=== PATIENT | female | born 1955 | race Caucasian/White ===

== ENCOUNTER 2016-09-18 07:05 | Outpatient (CLI) ==
[2016-07-27 07:44] VITALS: BMI 25.7
[2016-09-18 07:54] LABS: BASOPHILS # (AUTO) 0.1 K/uL (0-0.2); BASOPHILS % (AUTO) 0.7 % (0.0-3.0); EOSINOPHILS # (AUTO) 0.2 K/ul (0.0-0.7); HEMATOCRIT 44.9 % (37.0-47.0); HEMOGLOBIN 14.8 g/dl (12.0-16.0); IMMATURE GRANULOCYTE % (AUTO) 0.7 % (0.0-5.0); LYMPHOCYTES # (AUTO) 1.8 K/uL (0.60-3.4); MEAN CORPUSCULAR HEMOGLOBIN 30.8 pg (27.0-31.0); MEAN CORPUSCULAR VOLUME 93.3 fl (81.0-99.0); MONOCYTES # (AUTO) 0.6 K/uL (0.4-2.0); MONOCYTES % (AUTO) 8.6 (0-10); NEUTROPHILS # (AUTO) 4.6 K/ul (2.0-6.9); PLATELET COUNT 387 10^3/uL (140-440); RED BLOOD COUNT 4.81 10^6/ul (4.20-5.40); WHITE BLOOD COUNT 7.32 K/ul (4.6-10.2)
[2016-09-18 08:25] LABS: ALBUMIN 3.3 g/dL (3.4-5.0); ALBUMIN/GLOBULIN RATIO 1.06; ANION GAP 12.1; BILIRUBIN,DIRECT 0.2 mg/dL (0.00-0.30); BILIRUBIN,TOTAL 0.51 mg/dL (0.00-1.20); BUN/CREATININE RATIO 15.95; CALCIUM 8.9 mg/dL (8.2-10.2); CHOL/HDL RATIO 4.6 (4.5-5.5); CREATININE 0.94 mg/dL (0.60-1.30); POTASSIUM 4.1 mmol/L (3.5-5.10); TOTAL PROTEIN 6.4 g/dL (5.8-8.1)
== END 2016-09-18 07:06 | disposition home or self-care (01) ==
LOC: LAB 07:05
PROVIDERS: ATTEND Family Medicine
DX: C45.7 Mesothelioma of other sites (principal); J44.9 Chronic obstructive pulmonary disease, unspecified; Z00.00 Encounter for general adult medical examination without abnormal findings
CPT/HCPCS: 36415; 80053; 80061; 82248; 82306; 83036; 84436; 84443; 85025

== ENCOUNTER 2016-12-29 07:00 | Outpatient (CLI) ==
[2016-07-27 07:44] VITALS: BMI 25.7
[2016-12-29 07:25] LABS: CREATININE 1.05 mg/dL (0.60-1.30)
--- NOTE | 2016-12-29 08:58 | CT ---
EXAM: CT chest with contrast HISTORY: Right-sided chest pain COMPARISON: CT chest 07/27/2016 and multiple priors dating back to 09/06/2013 TECHNIQUE: Serial axial images of the chest were obtained after 100 ml of Omnipaque IV contrast was administered. These were obtained from the lung apices to the upper abdomen. FINDINGS: The thyroid is normal. Visualized vessels are unremarkable. There is no dissection, ane urysm or stenosis. The heart is normal in size without pericardial effusion. There are nonpatholog ically enlarged mediastinal, hilar or axillary lymph nodes. There is no pneumothorax or pleural effusion. There is scattered moderate emphysematous disease. T here is persistent linear fibrotic changes and postsurgical change in the superior segment of the ri ght lower lobe. There is mild lingular atelectasis. No acute consolidation, nodule or mass. The a irways are patent. The soft tissues in the upper abdomen demonstrate prior cholecystectomy. The osseous structures de monstrate degenerative disease of the spine. IMPRESSION: 1. No acute cardiopulmonary process. 2. Stable postsurgical changes in the right lung with mild linear fibrosis. 3. Prior cholecystectomy and mild scattered degenerative disease.
== END 2016-12-29 07:01 | disposition home or self-care (01) ==
LOC: RAD 07:00
PROVIDERS: ATTEND Family Medicine
DX: R07.9 Chest pain, unspecified (principal); C45.9 Mesothelioma, unspecified
CPT/HCPCS: 36415; 82565

== ENCOUNTER 2017-06-04 07:07 | Outpatient (CLI) ==
[2016-07-27 07:44] VITALS: BMI 25.7
[2017-06-04 08:59] LABS: BILIRUBIN,URINE Negative (NEGATIVE); KETONES,URINE Negative (NEGATIVE); LEUKOCYTE ESTERASE ,URINE Negative (NEGATIVE); NITRITE,URINE Negative (NEGATIVE); PH,URINE 6.5 (5-9); PROTEIN,URINE Negative (NEGATIVE); URINE, BLOOD Trace-intact (NEGATIVE)
[2017-06-04 09:08] LABS: ADD URINE MICROSCOPIC YES
== END 2017-06-04 07:08 | disposition home or self-care (01) ==
LOC: LAB 07:07
PROVIDERS: ATTEND Family Medicine
DX: R30.0 Dysuria (principal); M54.5 Low back pain
CPT/HCPCS: 81001

== ENCOUNTER 2017-06-08 12:47 | Inpatient (IN) ==
[2017-06-08] MEDS ORDERED: MORPHINE 2 MG/ML SYRINGE IVP STA (13:15)
[2017-06-08] MEDS ORDERED: ZOFRAN 4 MG/2 ML IVP STA (13:16)
[2017-06-08 13:26] LABS: BASOPHILS # (AUTO) 0.1 K/uL (0-0.2); BASOPHILS % (AUTO) 0.9 % (0.0-3.0); EOSINOPHILS # (AUTO) 0.2 K/ul (0.0-0.7); EOSINOPHILS % (AUTO) 2.2 % (0.0-7.0); HEMATOCRIT 42.3 % (37.0-47.0); HEMOGLOBIN 14.2 g/dl (12.0-16.0); IMMATURE GRANULOCYTE % (AUTO) 0.5 % (0.0-5.0); LYMPHOCYTES # (AUTO) 2.3 K/uL (0.60-3.4); LYMPHOCYTES % (AUTO) 27.9 (10.0-50.0); MEAN CORPUSCULAR HEMOGLOBIN 31.2 pg (27.0-31.0); MEAN CORPUSCULAR HGB CONC 33.6 (31.8-35.4); MONOCYTES # (AUTO) 0.8 K/uL (0.4-2.0); MONOCYTES % (AUTO) 9.6 (0-10); NEUTROPHILS # (AUTO) 4.8 K/ul (2.0-6.9); NEUTROPHILS % (AUTO) 58.9; PLATELET COUNT 377 10^3/uL (140-440); RED BLOOD COUNT 4.55 10^6/ul (4.20-5.40); WHITE BLOOD COUNT 8.15 K/ul (4.6-10.2)
[2017-06-08 14:01] LABS: ALBUMIN 3.3 g/dL (3.4-5.0); ALBUMIN/GLOBULIN RATIO 0.92; ANION GAP 12.9; BILIRUBIN,TOTAL 0.22 mg/dL (0.00-1.20); BUN/CREATININE RATIO 13.04; CALCIUM 9.4 mg/dL (8.2-10.2); CREATININE 0.92 mg/dL (0.60-1.30); POTASSIUM 3.9 mmol/L (3.5-5.10); TOTAL PROTEIN 6.9 g/dL (5.8-8.1); TROPONIN I 0.01 ng/ml (0.0000-0.4000)
[2017-06-08 14:04] LABS: CREATINE KINASE MB 3.1 ng/ml (0.0-3.6)
[2017-06-08] MEDS ORDERED: DEMEROL 100 MG/ML SYRINGE IVP STA (14:20)
--- NOTE | 2017-06-08 14:55 | CT ---
EXAM: CT of the chest with contrast History: Bilateral shoulder pain, history of mesothelioma. Comparison: Chest CT 12/29/2016 Technique: Multiplanar CT images through the thorax were obtained following administration of IV con trast Findings: Heart size is normal. No pericardial effusion. Great vessels are unremarkable. No pathol ogically enlarged thoracic lymph nodes. Left lower lobe ground-glass infiltrate. No pleural fluid and no pneumothorax. Emphysema again noted. Postsurgical changes and scarring again seen within the ri ght upper lung. No suspicious lung masses or lung nodules. Within the visualized upper abdomen, status post cholecystectomy. The liver is probably fatty. No a cute osseous abnormalities. Impression: 1. Left lower lobe subsegmental atelectasis versus a mild pneumonia. 2. Emphysema again noted. 3. Postsurgical changes with scarring again seen within the right upper lung. 4. Probable fatty liver.
--- NOTE | 2017-06-08 15:01 | ED.PDOC ---
General ED Provider: Dr. JENNY LEWIS Chief Complaint: Hypertension Stated Complaint: chest pain Time Seen by Physician: 13:00 (pain between shoulder blades ) Mode of Arrival: Walk-In Information Source: Patient Exam Limitations: No limitations Primary Care Provider: MADELINE GONZALES Nursing and Triage Documentation Reviewed and Agree: Yes Cardiovascular Complaint Exam - Chest Pain Complaint/Exam Onset: Gradual Duration: today Symptoms Are: Still present Timing: Intermittent Initial Severity: Moderate Current Severity: Moderate Pain Radiates: Reports: Back Character: Reports: Aching Aggravating: Reports: None, Movement Associated Signs and Symptoms: Reports: Cough. Denies: Diaphoresis, Nausea, Vomiting, Fever, Palpitations, Hemoptysis, Back pain, Abdominal pain, Dizziness , Short of air, Calf pain, Calf swelling Related History: Reports: Similar episode Related Surgical History: Reports: None History of Healthcare-Acquired Pneumonia: Reports: No AMI/ACS Risk Factors: Reports: None TAD Risk Factors: Reports: None Pulmonary Embolism Risk Factors: Reports: None, Malignancy Prior Care for this Complaint: No Recent Stress Test: No Recent Echo/LV Function: No JVD Present: No Subcutaneous Emphysema Present: No Diminshed Breath Sounds: No Reproducible Chest Wall Pain: No Bilateral Pulses Present: No If Risk Factors for AMI/ACS Consider: EKG, Cardiac Enzymes If Risk Factors for PE Consider: Chest CT with contrast Review of Systems - Review Of Systems Constitutional: Reports: No symptoms Eyes: Reports: No symptoms Ears, Nose, Mouth, Throat: Reports: No symptoms Respiratory: Reports: Cough Cardiac: Reports: Chest pain GI: Reports: No symptoms : Reports: No symptoms Musculoskeletal: Reports: No symptoms Skin: Reports: No symptoms Neurological: Reports: No symptoms Endocrine: Reports: No symptoms Hematologic/Lymphatic: Reports: No symptoms All Other Systems: Reviewed and Negative Past Medical History - Past Medical History Previously Healthy: No Endocrine: Reports: Dyslipidemia Cardiovascular: Reports: Hypertension Respiratory: Reports: None Hematological: Reports: None Gastrointestinal: Reports: None Genitourinary: Reports: None Neuro/Psych: Reports: None Musculoskeletal: Reports: None Cancer: Reports: Lung Last Menstrual Period: NA - Surgical History General Surgical History: Reports: Other (lung resection) - Family History Family History: Reports: Unknown - Social History Smoking Status: Current every day smoker, Light tobacco smoker Hx Substance Use: No Alcohol Screening: None Physical Exam - Physical Exam Appearance: Ill-appearing Ill-appearing: Mild Pain Distress: Mild Eyes: GIOVANNY, EOMI, Conjunctiva clear ENT: Ears normal, Nose normal, Oropharynx normal Respiratory: Airway patent, Breath sounds clear, Breath sounds equal, Respirations nonlabored Cardiovascular: RRR, Pulses normal, No rub, No murmur GI/: Soft, Nontender, No masses, Bowel sounds normal, No Organomegaly Musculoskeletal: Normal strength, ROM intact, No edema, No calf tenderness Skin: Warm, Dry, Normal color Neurological: Sensation intact, Motor intact, Reflexes intact, Cranial nerves intact, Alert, Oriented Psychiatric: Affect appropriate, Mood appropriate Interpretation - Radiology Interpretation Radiology Interpretation By: Radiologist Radiology Results: No acute changes Physician Notification - Case Discussed Physician Notified: unruly Time of Notification: 16:03 (admitt) Admit To: Inpatient Critical Care Note - Critical Care Note Total Time (mins): 0 Course - Course Hematology/Chemistry: 06/08/17 13:20 06/08/17 13:20 Orders, Labs, Meds: Lab Review 06/08/17 06/08/17 13:20 13:20 WBC 8.15 RBC 4.55 Hgb 14.2 Hct 42.3 MCV 93.0 MCH 31.2 H MCHC 33.6 RDW Coeff of Aranza 13.1 Plt Count 377 Immature Gran % (Auto) 0.5 Neut % (Auto) 58.9 Lymph % (Auto) 27.9 Mclean % (Auto) 9.6 Eos % (Auto) 2.2 Baso % (Auto) 0.9 Immature Gran # (Auto) 0.0 Neut # 4.8 Lymph # 2.3 Mclean # 0.8 Eos # 0.2 Baso # 0.1 Sodium 141 Potassium 3.9 Chloride 107 Carbon Dioxide 25 Anion Gap 12.9 BUN 12 Creatinine 0.92 Estimated GFR (MDRD) 62.00 BUN/Creatinine Ratio 13.04 Glucose 115 Calcium 9.4 Total Bilirubin 0.22 AST 12 L ALT 11 L Alkaline Phosphatase 129 Total Creatine Kinase 195 CK-MB (CK-2) 3.1 CK-MB (CK-2) % 1.35002 Troponin I 0.0100 Total Protein 6.9 Albumin 3.3 L Globulin 3.6 Albumin/Globulin Ratio 0.92 Orders Category Date Time Status EKG-(ED ONLY) Stat CARDIO 06/08/17 13:09 Completed NPO REMINDER: IMAGING ONCE CARE 06/08/17 13:15 Completed ED IV/MEDIPORT/POWERPORT .ONCE EMERGENCY 06/08/17 13:16 Active CBC W/ AUTO DIFF Stat LAB 06/08/17 13:20 Completed COMPREHENSIVE METABOLIC PANEL Stat LAB 06/08/17 13:20 Completed CREATINE KINASE Stat LAB 06/08/17 13:20 Completed TROPONIN I Stat LAB 06/08/17 13:20 Completed 0.9 % Sodium Chloride [Saline Flush] MEDS 06/08/17 13:16 Active 1 syr IVF PRN PRN Meperidine HCl/Pf [Demerol 100 mg/ml Syringe] MEDS 06/08/17 14:20 Discontinued 25 mg IVP ONCE STA Morphine Sulfate [Morphine 2 mg/ml Syringe] MEDS 06/08/17 13:15 Discontinued 2 mg IVP ONCE STA Ondansetron HCl/Pf [Zofran 4 mg/2 ml] MEDS 06/08/17 13:16 Discontinued 4 mg IVP ONCE STA CT CHEST W/CONTRAST Stat RADS 06/08/17 13:14 Completed Medications Generic Name Dose Route Start Last Admin Trade Name Freq PRN Reason Stop Dose Admin Sodium Chloride 1 syr 06/08/17 13:16 Saline Flush IVF PRN PRN To flush IV Discontinued Medications Generic Name Dose Route Start Last Admin Trade Name Freq PRN Reason Stop Dose Admin Meperidine HCl 25 mg 06/08/17 14:20 Demerol 100 Mg/Ml Syringe IVP 06/08/17 14:21 ONCE STA Morphine Sulfate 2 mg 06/08/17 13:15 06/08/17 13:32 Morphine 2 Mg/Ml Syringe IVP 06/08/17 13:16 Not Given ONCE STA Ondansetron HCl 4 mg 06/08/17 13:16 Zofran 4 Mg/2 Ml IVP 06/08/17 13:17 ONCE STA Vital Signs: Temp Pulse Resp BP Pulse Ox 06/08/17 12:52 98.9 F 92 H 18 167/94 H 97 OBEY Risk Score OBEY Risk Score: Risk Score Odds of by 30D 0 0.1 (0.1-0.2) 1 0.3 (0.2-0.3) 2 0.4 (0.3-0.5) 3 0.7 (0.6-0.9) 4 1.2 (1.0-1.5) 5 2.2 (1.9-2.6) 6 3.0 (2.5-3.6) 7 4.8 (3.8-6.1) Departure - Departure Time of Disposition: 15:02 Disposition: ADMITTED INPATIENT Discharge Problem: Chest pain Qualifiers: Chest pain type: unspecified Qualified Code(s): R07.9 - Chest pain, unspecified Instructions: Angina (ED), Chest Pain (ED) Condition: Good Pt referred to PMD for follow-up: Yes Additional Instructions: Please call your Family Physician as soon as possible to schedule a follow-up appointment. Allergies/Adverse Reactions: Allergies amoxicillin [From Augmentin] Adverse Reaction (Verified 06/08/17 12:50) clavulanic acid [From Augmentin] Adverse Reaction (Verified 06/08/17 12:50) morphine Adverse Reaction (Verified 06/08/17 12:50) pravastatin [From Pravachol] Adverse Reaction (Verified 06/08/17 12:50) risedronate sodium [From Actonel] Adverse Reaction (Verified 06/08/17 12:50) Home Medications: Ambulatory Orders Cholecalciferol (Vitamin D3) [Vitamin D] 5,000 mg PO DAILY 04/18/13 Cyanocobalamin (Vitamin B-12) [Vitamin B-12] 2,500 mg PO DAILY 04/18/13 Tiotropium [place] [Spiriva] 1 spray INH DAILY 04/18/13 Fexofenadine HCl [Tammi Allergy] 180 mg PO DAILY 07/23/14 Metoprolol Succinate [Toprol Xl] 20 mg PO DAILY 07/23/14 Estradiol [Estrace] 0.5 mg PO DAILY 05/25/16 Simvastatin [Zocor] 20 mg PO DAILY 05/25/16 Disposition Discussed With: Patient
[2017-06-08] MEDS ORDERED: SODIUM CHLORIDE 1,000 ML IV SCH (16:30)
[2017-06-08 16:50] LABS: CREATINE KINASE 175 U/L
[2017-06-08 16:51] LABS: CREATINE KINASE MB 2.9 ng/ml (0.0-3.6)
[2017-06-08 18:36] VITALS: BMI 28.7
[2017-06-08] MEDS ORDERED: NON-FORMULARY MEDICATION (Escitalopram Oxalate [Lexapro] 5 MG) PO SCH (21:00)
[2017-06-08] MEDS ORDERED: LEXAPRO ONE (21:32)
[2017-06-09 06:30] LABS: BASOPHILS # (AUTO) 0.1 K/uL (0-0.2); BASOPHILS % (AUTO) 0.9 % (0.0-3.0); EOSINOPHILS # (AUTO) 0.2 K/ul (0.0-0.7); HEMOGLOBIN 13.7 g/dl (12.0-16.0); IMMATURE GRANULOCYTE % (AUTO) 0.7 % (0.0-5.0); LYMPHOCYTES # (AUTO) 1.9 K/uL (0.60-3.4); LYMPHOCYTES % (AUTO) 25.3 (10.0-50.0); MEAN CORPUSCULAR HEMOGLOBIN 31.4 pg (27.0-31.0); MEAN CORPUSCULAR HGB CONC 33.4 (31.8-35.4); MEAN CORPUSCULAR VOLUME 93.8 fl (81.0-99.0); MONOCYTES # (AUTO) 0.7 K/uL (0.4-2.0); MONOCYTES % (AUTO) 9.5 (0-10); NEUTROPHILS # (AUTO) 4.6 K/ul (2.0-6.9); NEUTROPHILS % (AUTO) 60.6; PLATELET COUNT 343 10^3/uL (140-440); RED BLOOD COUNT 4.37 10^6/ul (4.20-5.40); WHITE BLOOD COUNT 7.55 K/ul (4.6-10.2)
[2017-06-09 07:07] LABS: ALANINE AMINOTRANSFERASE 10 U/L (12-78); ALBUMIN 2.9 g/dL (3.4-5.0); ALKALINE PHOSPHATASE 108 U/L (53-141); ANION GAP 10.1; ASPARTATE AMINO TRANSFERASE 10 U/L (15-37); BILIRUBIN,TOTAL 0.41 mg/dL (0.00-1.20); BLOOD UREA NITROGEN 10 mg/dL (7-18); BUN/CREATININE RATIO 10.86; CALCIUM 8.7 mg/dL (8.2-10.2); CARBON DIOXIDE 26 mmol/L (23-31); CHLORIDE 109 mmol/L (98-107); CREATINE KINASE 122 U/L; CREATININE 0.92 mg/dL (0.60-1.30); GLUCOSE 104 mg/dL (82-115); POTASSIUM 4.1 mmol/L (3.5-5.10); SODIUM 141 mmol/L (136-145); TOTAL PROTEIN 5.8 g/dL (5.8-8.1)
[2017-06-09 07:08] LABS: CREATINE KINASE MB 2.2 ng/ml (0.0-3.6)
--- NOTE | 2017-06-09 07:16 | HP ---
DATE OF SERVICE: 06/08/17 SOURCE: The source of this information is prior knowledge of the patient, review of her office records, her current chart as well as discussion with she and ; all considered reliable. PATIENT PROFILE: Jennifer is a 61-year-old female resident of the [facility] area; she was cooperative. CHIEF COMPLAINT: "I was having back and chest pain." BRIEF HISTORY OF PRESENT ILLNESS: She has had some chest discomfort over time on and off. There has never been a significant cardiovascular finding. She does have mesothelioma and is being treated through [facility] with chemotherapy. She is a smoker. 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 she started having pain in her mid back. It radiated through to her chest and reached intensity and she couldn't hardly tolerate it. About 2 in the afternoon, she went to the ER and cardiac enzymes were negative. EKG was likewise normal. I was notified of her stable condition, improved with IV Dilaudid. Request was made to admit and consider this as possible ischemic cardiovascular disease that needs further evaluation. She denies indigestion, heartburn, hemoptysis, cough, fever , chest trauma or excessive use of upper muscular system. PAST HISTORY: CHILDHOOD: Unremarkable. ALLERGIES/INTOLERANCE: ACTONEL (CHEST DISCOMFORT), AMOXICILLIN (YEAST INFECTION) , AUGMENTIN (DIARRHEA, NAUSEA AND VOMITING), IVP DYE (SHORTNESS OF BREATH), PRAVACHOL (ELEVATED CPK). CURRENT MEDICATIONS: Spiriva 18 mcg inhaled each day Vitamin B12 1000 mcg 2500 mg a day Vitamin D 5000 internation units a day Toprol 25 XL once a day Tammi 180 mg a day Estrace 0.5 mg a day Zocor 20 mg once a day Protonix 40 mg once a day Lexapro 5 mg at bedtime HOSPITALIZATIONS/SURGERIES/PROCEDURES: She is 2, Para 2, AB 0 with several EGDs; a gambit of findings with hiatal hernia, gastritis and several colonoscopies with the last one showing diverticular disease on 10/15/08 showing diverticular disease, repeat in 5 years. She had a heart cath negative, Dr. Reva Hopkins, 06/24/06. Attempts at a right lung CT biopsy, [facility], 02/20/16 and subsequent testing and surgical biopsy by Dr. Richy Sutton at [facility]. Lap/gallbladder, Dr. Castillo 28/02 at [facility]; Cysto with dilatation, pelvic floor relaxation, bladder loss compliance, chronic cystitis and dilatation performed by Dr. Unger, [facility], 21/07. She had JB and BSO for benign reasons; Dr. Martell, hysterectomy, 1981. Lap/gallbladder, Dr. Castillo, [facility], 2006. Right breast biopsy, Dr. Johansen on 04/08. Bladder sling, Dr. Un[facility], 09/11/13 and right upper lobe removal, Richy Sutton at [facility] on 03/27/16. HABITS: Smoker, age 18, one pack per day with secondhand smoke all other childhood and adult life. No alcohol or drugs. 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 She was in 1973 to her current and has two children. FAMILY HISTORY: Heart disease in mother and diabetes in mother; lymphoma in brother; breast cancer in sister and is there no other cancer, familial trends in the family. REVIEW OF SYSTEMS: GENERAL: She denies fever. INTEGUMENT: Denies rash. HEENT: Denies nasal congestion, sore throat. NECK: Denies pain or mass. RESPIRATORY: Denies cough or hemoptysis. CARDIOVASCULAR: Denies palpitations, exertional chest pain, ankle edema. GI: Denies nausea, vomiting, diarrhea or rectal bleeding. : Denies dysuria. MUSCULOSKELETAL: Usual on and off sore joints. No swollen or red joints. NEUROLOGIC: Denies weakness of extremities or slurred speech. PHYSICAL EXAMINATION: VITALS: Temperature 97.8, pulse 69, respirations 12. Height 5'3, weight 162 lbs. BP 118/70. GENERAL: Appropriate for age, well-kept white female in no obvious distress. INTEGUMENT: Eyegrounds are pink, nonicteric sclerae. Mucous membranes moist, no ankle edema. HEENT: Facial symmetry. Pupils equal, round, extraocular movements intact. NECK: No mass or thyroid appreciated to visualization or palpation Supple. CHEST: Diminished but clear. CARDIOVASCULAR: S1, S2 without murmur or rubs. No carotid bruits. Distal pulse is in tact. GI: Soft. No rebound, guarding, mass or tenderness. RECTAL/: Deferred. MUSCULOSKELETAL: No red or swollen joints . Full quadrant movements are noticed and equal. PSYCHIATRIC: Alert, oriented times three. Purposeful, pleasant conversation. ASSESSMENT/PROBLEM LIST: 61-year-old white female - advanced age Allergies/intolerances - see above Procedural history - see above. Family history - see above Surgical menopause 2, Para 2, AB 0 Tobacco/nicotine abuse - addiction COPD Diverticular disease by colonoscopy Esophageal reflux Hiatal hernia Hyperlipidemia Irritable bowel - GI opinion History of reflux esophagitis on EGD Mitral valve prolapse on echo Lumbosacral disk disease Lumbosacral spondylosis Chronic lower back pain Elevated TSH - being followed Mesothelioma being followed by [place] REASON FOR ADMISSION: # Chest pain # Acute back pain PLAN: 1. Medications: No change but we will have available pain medication and maybe anti esophagitis medications if this should be a recurring problem tonight. 2. Labs - serial cardiac enzymes to completion. 3. Stress echo for the morning 4. Discharge plan - she expects home if able MTDD
[2017-06-09] MEDS ORDERED: PROTONIX PO SCH (07:30)
[2017-06-09] MEDS ORDERED: ZOCOR PO SCH (09:00)
[2017-06-09] MEDS ORDERED: NON-FORMULARY MEDICATION (Pantoprazole Sodium [Protonix] 40 MG) PO SCH ×22 (09:00)
[2017-06-09] MEDS ORDERED: NON-FORMULARY MEDICATION (Simvastatin [Zocor] 20 MG) PO SCH ×22 (09:00)
[2017-06-09] MEDS ORDERED: TOPROL XL PO SCH (09:00)
[2017-06-09] MEDS ORDERED: SPIRIVA IH SCH (09:00)
[2017-06-09] MEDS ORDERED: ESTRADIOL 0.5 MG PO SCH (09:00)
[2017-06-09 14:47] VITALS: BP 109/68; TEMP 97.6
[2017-06-09] MEDS ORDERED: LEXAPRO PO SCH (21:00)
--- NOTE | 2017-06-11 10:54 | DS ---
PATIENT PROFILE: Jennifer is a 61-year-old female resident of the [facility]; she was cooperative. CHIEF COMPLAINT: "I was having back and chest pain." BRIEF HISTORY OF PRESENT ILLNESS: She has had some chest discomfort over time on and off. There has never been a significant cardiovascular finding. She does have mesothelioma and is being treated through [facility] with chemotherapy. She is a smoker. 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 she started having pain in her mid back. It radiated through to her chest and reached intensity and she couldn't hardly tolerate it. About 2 in the afternoon, she went to the ER and cardiac enzymes were negative. EKG was likewise normal. I was notified of her stable condition, improved with IV Dilaudid. Request was made to admit and consider this as possible ischemic cardiovascular disease that needs further evaluation. She denies indigestion, heartburn, hemoptysis, cough, fever , chest trauma or excessive use of upper muscular system. PAST HISTORY: CHILDHOOD: Unremarkable. ALLERGIES/INTOLERANCE: ACTONEL (CHEST DISCOMFORT), AMOXICILLIN (YEAST INFECTION) , AUGMENTIN (DIARRHEA, NAUSEA AND VOMITING), IVP DYE (SHORTNESS OF BREATH), PRAVACHOL (ELEVATED CPK). CURRENT MEDICATIONS: Spiriva 18 mcg inhaled each day Vitamin B12 1000 mcg 2500 mg a day Vitamin D 5000 internation units a day Toprol 25 XL once a day Tammi 180 mg a day Estrace 0.5 mg a day Zocor 20 mg once a day Protonix 40 mg once a day Lexapro 5 mg at bedtime HOSPITALIZATIONS/SURGERIES/PROCEDURES: She is 2, Para 2, AB 0 with several EGDs; a gambit of findings with hiatal hernia, gastritis and several colonoscopies with the last one showing diverticular disease on 10/15/08 showing diverticular disease, repeat in 5 years. She had a heart cath negative, Isaiah Cummings, Dr. Ardon, 06/24/06. Attempts at a right lung CT biopsy, [facility], 02/20/16 and subsequent testing and surgical biopsy by Dr. Richy Sutton at [facility] [place]. Lap/gallbladder, Dr. Castillo 28/02 at [facility]; Cysto with dilatation, pelvic floor relaxation, bladder loss compliance, chronic cystitis and dilatation performed by Dr. Unger, [facility], 21/07. She had JB and BSO for benign reasons; Dr. Martell, hysterectomy, 1981. Lap/gallbladder, Dr. Castillo, [facility], 2006. Right breast biopsy, Dr. Johansen on 04/08. Bladder sling, Dr. Unger, [facility], 09/11/13 and right upper lobe removal, Richy Sutton at [facility] [place] on 03/27/16. HABITS: Smoker, age 18, one pack per day with secondhand smoke all other childhood and adult life. No alcohol or drugs. 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 She was in 1973 to her current and has two children. FAMILY HISTORY: Heart disease in mother and diabetes in mother; lymphoma in brother; breast cancer in sister and is there no other cancer, familial trends in the family. REVIEW OF SYSTEMS: GENERAL: She denies fever. INTEGUMENT: Denies rash. HEENT: Denies nasal congestion, sore throat. NECK: Denies pain or mass. RESPIRATORY: Denies cough or hemoptysis. CARDIOVASCULAR: Denies palpitations, exertional chest pain, ankle edema. GI: Denies nausea, vomiting, diarrhea or rectal bleeding. : Denies dysuria. MUSCULOSKELETAL: Usual on and off sore joints. No swollen or red joints. NEUROLOGIC: Denies weakness of extremities or slurred speech. PHYSICAL EXAMINATION: VITALS: Temperature 97.8, pulse 69, respirations 12. Height 5'3, weight 162 lbs. BP 118/70. GENERAL: Appropriate for age, well-kept white female in no obvious distress. INTEGUMENT: Eyegrounds are pink, nonicteric sclerae. Mucous membranes moist, no ankle edema. HEENT: Facial symmetry. Pupils equal, round, extraocular movements intact. NECK: No mass or thyroid appreciated to visualization or palpation Supple. CHEST: Diminished but clear. CARDIOVASCULAR: S1, S2 without murmur or rubs. No carotid bruits. Distal pulse is in tact. GI: Soft. No rebound, guarding, mass or tenderness. RECTAL/: Deferred. MUSCULOSKELETAL: No red or swollen joints . Full quadrant movements are noticed and equal. PSYCHIATRIC: Alert, oriented times three. Purposeful, pleasant conversation. ASSESSMENT/PROBLEM LIST: 61-year-old white female - advanced age Allergies/intolerances - see above Procedural history - see above. Family history - see above Surgical menopause 2, Para 2, AB 0 Tobacco/nicotine abuse - addiction COPD Diverticular disease by colonoscopy Esophageal reflux Hiatal hernia Hyperlipidemia Irritable bowel - GI opinion History of reflux esophagitis on EGD Mitral valve prolapse on echo Lumbosacral disk disease Lumbosacral spondylosis Chronic lower back pain Elevated TSH - being followed [facility] being followed by [facility] REASON FOR ADMISSION: # Chest pain # Acute back pain HOSPITAL COURSE: Her chest pain resolved. She had a stress echo done by Dr. Campbell that was unremarkable. Her Vitals remained stable. Her serial CMP and CBC was unremarkable. Her exam was unremarkable the next day and she wanted to go home. Her chest x-ray was read as nothing acute. DISCHARGE ASSESSMENT/PROBLEM LIST (CHANGED FROM ADMISSION): # Acute chest pain - appears to be nonischemic or cardiac # Acute back pain # Mesothielioma # COPD # Chronic anxiety # History of reflux PLAN: 1. Discharged home 2. No work until seen on 06/14/17 3. Activity - gradually increase as able 4. Medications: Same as admit - a) Lexapro 5 mg at night b) Toprol XL 25 mg once a day c) Estrace 0.5 mg once a day d) Protonix 40 mg once a day e) Zocor 20 mg once a day f) Spiriva 18 mcg inhaled once a day 5. Followup a) Followup with Dr. Castañeda as planned or if any chest pain and keep appointments in [place] as planned. PROGNOSIS: Guarded. CONDITION: Stable, improved. [facility]
== END 2017-06-09 16:32 | disposition home or self-care (01) | DRG 313 ==
LOC: ED 12:47 → MEDSURG B 17:34 → UNDOADMIN 17:34
PROVIDERS: ADMIT Family Medicine; ATTEND Family Medicine
DX: R07.89 Other chest pain (principal); I10 Essential (primary) hypertension; C45.7 Mesothelioma of other sites; J44.9 Chronic obstructive pulmonary disease, unspecified; F41.8 Other specified anxiety disorders; K21.9 Gastro-esophageal reflux disease without esophagitis; M54.9 Dorsalgia, unspecified; F17.200 Nicotine dependence, unspecified, uncomplicated; Z79.899 Other long term (current) drug therapy
CPT/HCPCS: 36415; 80053; 82550; 82553; 84484; 85025; 93005; 93010; 99284

== ENCOUNTER 2017-08-06 07:18 | Outpatient (CLI) | END 2017-08-06 07:19 | disposition home or self-care (01) | LOC: LAB 07:18 | PROVIDERS: ATTEND Family Medicine | DX: N39.0 Urinary tract infection, site not specified (principal) | CPT/HCPCS: 81001 ==

== ENCOUNTER 2018-01-25 07:18 | Outpatient (CLI) ==
--- NOTE | 2018-01-25 09:15 | DEXA ---
EXAM: Bone densitometry. History: Risk for osteoporosis. Findings: Evaluation of the lumbar spine reveals a total bone mineral density of 1.090 grams per centimeter squ ared with T-score of negative 0.7. Evaluation of the left hip reveals a total bone mineral density of 0.895 grams per centimeter squared with T-score of negative 0.9. Evaluation of the right hip reveals a total bone mineral density of 0.884 grams per centimeter square d with T-score of negative 1.0 Impression: Normal bone mineral density of the lumbar spine and bilateral hips
== END 2018-01-25 07:19 | disposition home or self-care (01) ==
LOC: LAB 07:18
PROVIDERS: ATTEND Family Medicine
DX: N39.0 Urinary tract infection, site not specified (principal); Z91.89 Other specified personal risk factors, not elsewhere classified; F41.9 Anxiety disorder, unspecified; E11.9 Type 2 diabetes mellitus without complications; C45.7 Mesothelioma of other sites; N18.3 Chronic kidney disease, stage 3 (moderate); I10 Essential (primary) hypertension; E78.5 Hyperlipidemia, unspecified; Z00.00 Encounter for general adult medical examination without abnormal findings; Z72.0 Tobacco use
CPT/HCPCS: 36415; 80053; 80061; 81001; 82043; 82306; 83036; 84443; 85025; 86803; 87086

== ENCOUNTER 2018-01-28 07:14 | Outpatient (CLI) | payer OTHER ==
--- NOTE | 2018-01-28 11:28 | US ---
EXAM: Renal ultrasound. History: Urinary tract infection and hematuria. Comparison: Renal ultrasound 12/24/2011 Technique: Multiple sonographic images through the kidneys were obtained. Color duplex Doppler was used to interrogate vascular flow. Findings: There is increased density seen within the bladder base measuring 2.3 cm. The right kidney measures 8.9 cm in long length demonstrating normal cortical echogenicity without ev idence for hydronephrosis, mass or shadowing calculus. The left kidney measures 9.5 cm in long length demonstrating normal cortical echogenicity without adam dence for hydronephrosis or shadowing calculus. 3.2 cm soft tissue area within the mid pole of the l eft kidney. Impression: 1. Solid left renal mass versus prominent left renal cortex. Recommend further evaluation with CT r enal mass protocol. 2. Increased density within the base of the bladder is nonspecific but could represent debris versus underlying mass lesion. This can also be further evaluated with CT.
== END 2018-01-28 07:15 | disposition home or self-care (01) ==
LOC: RAD 07:14
PROVIDERS: ATTEND Family Medicine
DX: N18.3 Chronic kidney disease, stage 3 (moderate) (principal); N39.0 Urinary tract infection, site not specified
CPT/HCPCS: 76770

== ENCOUNTER 2018-01-28 14:37 | Emergency (ER) ==
[2018-01-28 14:46] VITALS: BP 168/76; TEMP 97.4; BMI 28.3
[2018-01-28] MEDS ORDERED: SODIUM CHLORIDE 1,000 ML IV STA (17:44)
--- NOTE | 2018-01-28 18:37 | ED.PDOC ---
General ED Provider: Dr. JENNY LEWIS Chief Complaint: Urinary Problem Stated Complaint: POSSIBLE RENAL MASS Time Seen by Physician: 14:40 Mode of Arrival: Walk-In Information Source: Patient Exam Limitations: No limitations Primary Care Provider: MADELINE GONZALES Nursing and Triage Documentation Reviewed and Agree: Yes Does patient meet sepsis criteria?: Yes If yes, has appropriate treatment been initiated?: No System Inflammatory Response Syndrome: Not Applicable Sepsis Protocol: For patient's 13 years and over: Temp is 96.8 and below OR 101 and greater Pulse >90 BPM Resp >20/minute Acutely Altered Mental Status Are patient's symptoms suggestive of a new infection, such as: -Pneumonia -Skin, Soft Tissue -Endocarditis -UTI -Bone, Joint Infection -Implantable Device -Acute Abdominal Infection -Wound Infection -Meningitis -Blood Stream Catheter Infection -Unknown Miscellaneous Complaint Exam - Complex/Multi-System Complaint/Exam Onset/Duration: PT NOTED ABNORMAL RESULTS ON THE ULTRASOUND POSSIBLE RENAL MASS Symptoms Are: Still present Current Severity: None Associated Signs and Symptoms: Denies: Decreased responsiveness, Confusion, Agitation, Dizziness, Weakness, Syncope, Headache, Short of air, Cough, Wheezing , Hemoptysis, Chest pain, Palpitations, Edema, Nausea, Vomiting, Diarrhea, Abdominal pain, Back pain, Dysuria, Hematemesis, Melena, Decreased oral intake, Fever, Diaphoresis, Immunocompromised, Anticoagulation Therapy, Recent medication changes, Indwelling medical art therapist, Prior MRSA, Prior VRE, Recent trauma, Remote trauma Meningeal Signs Positive: No Focal Weakness: Present: None Focal Sensory Loss: Present: None Gait: Normal Gag Reflex Present: Yes Differential Diagnosis: Other (RENAL MASS ) Review of Systems - Review Of Systems Constitutional: Reports: No symptoms Eyes: Reports: No symptoms Ears, Nose, Mouth, Throat: Reports: No symptoms Respiratory: Reports: No symptoms Cardiac: Reports: No symptoms GI: Reports: Abdominal pain : Reports: No symptoms Musculoskeletal: Reports: No symptoms Skin: Reports: No symptoms Neurological: Reports: No symptoms Endocrine: Reports: No symptoms Hematologic/Lymphatic: Reports: No symptoms All Other Systems: Reviewed and Negative Past Medical History - Past Medical History Previously Healthy: No Endocrine: Reports: Dyslipidemia Cardiovascular: Reports: Hypertension Respiratory: Reports: None Hematological: Reports: None Gastrointestinal: Reports: None Genitourinary: Reports: None Neuro/Psych: Reports: None Musculoskeletal: Reports: None Cancer: Reports: Lung Last Menstrual Period: HYSTERECTOMY - Surgical History General Surgical History: Reports: Other (lung resection) - Family History Family History: Reports: Unknown - Social History Smoking Status: Current every day smoker, Light tobacco smoker Hx Substance Use: No Alcohol Screening: None - Immunizations Tetanus Shot up to Date: Yes Physical Exam - Physical Exam Appearance: Well-appearing, No pain distress, Well-nourished Eyes: GIOVANNY, EOMI, Conjunctiva clear ENT: Ears normal, Nose normal, Oropharynx normal Respiratory: Airway patent, Breath sounds clear, Breath sounds equal, Respirations nonlabored Cardiovascular: RRR, Pulses normal, No rub, No murmur GI/: Soft, Nontender, No masses, Bowel sounds normal, No Organomegaly Musculoskeletal: Normal strength, ROM intact, No edema, No calf tenderness Skin: Warm, Dry, Normal color Neurological: Sensation intact, Motor intact, Reflexes intact, Cranial nerves intact, Alert, Oriented Psychiatric: Affect appropriate, Mood appropriate Physician Notification - Case Discussed Physician Notified: PMD Time of Notification: 18:37 (SEEN PT IN THE ED ) Critical Care Note - Critical Care Note Total Time (mins): 0 Course - Course Hematology/Chemistry: 01/28/18 17:55 01/28/18 17:55 Orders, Labs, Meds: Lab Review 01/28/18 01/28/18 01/28/18 17:55 17:55 18:30 WBC 10.86 H RBC 4.82 Hgb 14.8 Hct 45.0 MCV 93.4 MCH 30.7 MCHC 32.9 RDW Coeff of Aranza 13.1 Plt Count 380 Immature Gran % (Auto) 0.6 Neut % (Auto) 65.3 Lymph % (Auto) 23.2 [place] % (Auto) 8.3 Eos % (Auto) 2.0 Baso % (Auto) 0.6 Immature Gran # (Auto) 0.1 Neut # (Auto) 7.1 H Lymph # (Auto) 2.5 [place] # (Auto) 0.9 Eos # (Auto) 0.2 Baso # (Auto) 0.1 Sodium 140 Potassium 3.9 Chloride 103 Carbon Dioxide 26 Anion Gap 14.9 BUN 12 Creatinine 0.90 Estimated GFR (MDRD) 64.00 BUN/Creatinine Ratio 13.33 Glucose 96 Calcium 9.5 Total Bilirubin 0.6 AST 13 L ALT 15 Alkaline Phosphatase 107 Total Protein 6.9 Albumin 3.4 Globulin 3.5 Albumin/Globulin Ratio 0.97 Urine Color Yellow Urine Clarity Clear Urine pH 5.5 Ur Specific Jay Em 1.020 Urine Protein Negative Urine Glucose (UA) Negative Urine Ketones Negative Urine Blood Negative Urine Nitrite Negative Urine Bilirubin Negative Urine Urobilinogen 0.2 Ur Leukocyte Esterase Negative Orders Category Date Time Status NPO REMINDER: IMAGING ONCE CARE 01/28/18 17:44 Completed ED IV/MEDIPORT/POWERPORT .ONCE EMERGENCY 01/28/18 17:44 Active CBC W/ AUTO DIFF Stat LAB 01/28/18 17:55 Completed COMPREHENSIVE METABOLIC PANEL Stat LAB 01/28/18 17:55 Completed URINALYSIS C & S IF INDICATED Stat LAB 01/28/18 18:30 Completed 0.9 % Sodium Chloride [Saline Flush] MEDS 01/28/18 17:44 Ordered 1 syr IVF PRN PRN Sodium Chloride 0.9% [Sodium Chloride] 1,000 ml MEDS 01/28/18 17:44 Active IV 125 mls/hr CT ABDOMEN/PELVIS W/WO CONTRAS Stat RADS 01/28/18 17:43 Completed Medications Generic Name Dose Route Start Last Admin Trade Name Freq PRN Reason Stop Dose Admin Sodium Chloride 1,000 mls @ 125 mls/hr 01/28/18 17:44 Sodium Chloride IV 01/29/18 01:43 .Q8H STA Sodium Chloride 1 syr 01/28/18 17:44 Saline Flush IVF PRN PRN To flush IV Vital Signs: Temp Pulse Resp BP Pulse Ox 01/28/18 14:38 97.4 F L 87 18 168/76 H 92 L Departure - Departure Time of Disposition: 19:00 Disposition: HOME SELF-CARE Discharge Problem: Urinary symptoms Instructions: Dysuria (ED) Condition: Good Pt referred to PMD for follow-up: Yes IPMP verified?: No Additional Instructions: Please call your Family Physician as soon as possible to schedule a follow-up appointment.MUST SEE A UROLOGIST NATHAN Allergies/Adverse Reactions: Allergies amoxicillin [From Augmentin] Adverse Reaction (Verified 01/28/18 14:47) clavulanic acid [From Augmentin] Adverse Reaction (Verified 01/28/18 14:47) morphine Adverse Reaction (Verified 01/28/18 14:47) pravastatin [From Pravachol] Adverse Reaction (Verified 01/28/18 14:47) risedronate sodium [From Actonel] Adverse Reaction (Verified 01/28/18 14:47) Home Medications: Ambulatory Orders Cholecalciferol (Vitamin D3) [Vitamin D3] 5,000 mg PO DAILY 04/18/13 Cyanocobalamin (Vitamin B-12) [Vitamin B-12] 2,500 mg PO DAILY 04/18/13 Tiotropium [place] [Spiriva] 1 spray INH DAILY 04/18/13 Fexofenadine HCl [Tammi Allergy] 180 mg PO DAILY 07/23/14 Metoprolol Succinate [Toprol Xl] 20 mg PO DAILY 07/23/14 Estradiol [Estrace] 0.5 mg PO DAILY 05/25/16 Simvastatin [Zocor] 20 mg PO DAILY 05/25/16 Escitalopram Oxalate [Lexapro] 5 mg PO BEDTIME 06/08/17 Pantoprazole Sodium [Protonix] 40 mg PO DAILY 06/08/17 Disposition Discussed With: Patient, Family
--- NOTE | 2018-01-28 18:46 | CT ---
EXAM: CT abdomen and pelvis without/with contrast HISTORY: Flank pain radiating to lower abdomen, bladder sling, urinary tract infection, solid left re nal mass suggested on ultrasound on 01/28/2018 TECHNIQUE: Multi-slice transaxial helical with coronal and sagittal reformed images CONTRAST: Intravenous Visipaque 320, 50 mL COMPARISON: Abdominal sonogram from 01/28/2018 FINDINGS: The lung bases are free of acute airspace or interstial opacities. The heart size is norm al. There are no pericardial or pleural effusions. The hepatic attenuation is normal relative to the spleen. The spleen has normal size and attenuation . The gallbladder surgically absent without biliary dilatation. The pancreas adrenal glands are nor mal. The kidneys have normal size attenuation. No nephrolithiasis or ureterolithiasis are evident. The n onopacified bladder is normal. The uterus is surgically absent and there are no adnexal masses. Diverticula arise from the large bowel without CT evidence of diverticulitis. The appendix is surgic ally absent. No intestinal distension is evident. Abdominal aorta is atherosclerotic with normal ca liber. No lymphadenopathy or ascites are appreciated. The bones are free of suspicious osteolytic or osteoblastic lesions. IMPRESSION: 1. No suspicious renal masses or pyelonephritis. 2. No nephrolithiasis, ureterolithiasis, or ureteral pelvicaliectasis. 3. Colonic diverticulosis without CT evidence of diverticulitis.
== END 2018-01-28 19:43 | disposition home or self-care (01) ==
LOC: ED 14:37
DX: R39.9 Unspecified symptoms and signs involving the genitourinary system (principal); R93.5 Abnormal findings on diagnostic imaging of other abdominal regions, including retroperitoneum; E78.5 Hyperlipidemia, unspecified; I10 Essential (primary) hypertension; C34.90 Malignant neoplasm of unspecified part of unspecified bronchus or lung; F17.210 Nicotine dependence, cigarettes, uncomplicated; Z79.899 Other long term (current) drug therapy
CPT/HCPCS: 36415; 76770; 80053; 81001; 85025; 99284

== ENCOUNTER 2018-02-15 11:15 | Outpatient (CLI) | END 2018-02-15 11:16 | disposition home or self-care (01) | LOC: LAB 11:15 | PROVIDERS: ATTEND Family Medicine | DX: N28.9 Disorder of kidney and ureter, unspecified (principal); N39.0 Urinary tract infection, site not specified | CPT/HCPCS: 81001 ==

== ENCOUNTER 2018-05-16 11:32 | Outpatient (CLI) | END 2018-05-16 11:33 | disposition home or self-care (01) | LOC: LAB 11:32 | PROVIDERS: ATTEND Family Medicine | DX: R30.0 Dysuria (principal); M54.5 Low back pain | CPT/HCPCS: 81001 ==

== ENCOUNTER 2018-08-10 12:00 | Outpatient (CLI) | END 2018-08-10 12:01 | disposition home or self-care (01) | LOC: LAB 12:00 | PROVIDERS: ATTEND Family Medicine | DX: R30.0 Dysuria (principal) | CPT/HCPCS: 81001; 87086; 87186 ==

== ENCOUNTER 2018-12-04 19:15 | Inpatient (IN) ==
[2018-12-04] MEDS ORDERED: SOLU-MEDROL 125 MG IVP STA (19:17)
[2018-12-04] MEDS ORDERED: XOPENEX 1.25 MG NEB STA (19:18)
[2018-12-04] MEDS ORDERED: DUONEB NEB STA (19:18)
--- NOTE | 2018-12-04 20:45 | CT ---
EXAM: CT scan chest without contrast HISTORY: Shortness of breath COMPARISON: CT scan chest 06/08/2017 FINDINGS: Contiguous axial images obtained through the thorax without contrast utilizing 5-mm collim ation. Sagittal and coronal reconstructions were imaged and reviewed.. The thoracic inlet is unrema rkable. The heart is normal in size without pericardial effusion. There is minimal coronary artery calcification.. Emphysematous changes are noted.. Postsurgical changes and scarring are again noted right upper lobe. Scarring and/or atelectasis is seen the lingula.. Scattered tree-in-bud opacitie s are seen bilateral upper lobes and superior segments of lower lobes suggesting bronchiolitis. Ther e is no consolidation or effusion. There has been prior cholecystectomy.. Bone windows reveals it i s of lytic or blastic. IMPRESSION: Stable postsurgical/scarring right upper lobe. Emphysematous changes. Bilateral tree-in-bud opacities suggestive of bronchiolitis
--- NOTE | 2018-12-04 20:51 | ED.PDOC ---
General ED Provider: Dr. DANIEL LAUGHLIN-ER Chief Complaint: Shortness of Air Stated Complaint: im sob and coughing and wheezing--oxy sat 86%--i used my husbands oxygen Time Seen by Physician: 19:20 Mode of Arrival: Walk-In Information Source: Patient, Family Exam Limitations: No limitations Primary Care Provider: MADELINE GONZALES Nursing and Triage Documentation Reviewed and Agree: Yes Does patient meet sepsis criteria?: No System Inflammatory Response Syndrome: Not Applicable Sepsis Protocol: For patient's 13 years and over: Temp is 96.8 and below OR 101 and greater Pulse >90 BPM Resp >20/minute Acutely Altered Mental Status Are patient's symptoms suggestive of a new infection, such as: -Pneumonia -Skin, Soft Tissue -Endocarditis -UTI -Bone, Joint Infection -Implantable Device -Acute Abdominal Infection -Wound Infection -Meningitis -Blood Stream Catheter Infection -Unknown Respiratory Complaint Exam - Respiratory Complaint/Exam Onset/Duration: 3 days Symptoms Are: Still present Timing: Constant Initial Severity: Mild Current Severity: Moderate Location: Chest Character: Reports: Productive cough Aggravating: Reports: URI Alleviating: Reports: Bronchodilators Associated Signs and Symptoms: Reports: Rapid breathing, Dyspnea, Wheezing, URI Related History: Reports: Similar episode History of Healthcare-Acquired Pneumonia: No Home Oxygen Use: No Recent Stress Test: No Recent Echo/LV Function: No Current Antibiotic Use: No Current Asthma Medication Use: No Respiratory Distress: Mild Inadequate Respiratory Effort: No Dysphagia Present: No Stridor Present: No JVD Present: No Accessory Muscle Use: No Retractions: Not Present Diminished Breath Sounds: Yes Prolonged Respiration: Expiratory phase Sinus Tenderness: None Grunting Respirations: No [place] Respirations: No Differential Diagnoses: COPD Exacerbation, Bronchitis Non-Traumatic Chest Pain Syncope: EKG Performed Review of Systems - Review Of Systems Constitutional: Reports: No symptoms Eyes: Reports: No symptoms Ears, Nose, Mouth, Throat: Reports: No symptoms Respiratory: Reports: Cough, Short of air, Wheezing Cardiac: Reports: No symptoms GI: Reports: No symptoms : Reports: No symptoms Musculoskeletal: Reports: No symptoms Skin: Reports: No symptoms Neurological: Reports: No symptoms Endocrine: Reports: No symptoms Hematologic/Lymphatic: Reports: No symptoms All Other Systems: Reviewed and Negative Past Medical History - Past Medical History Previously Healthy: No Endocrine: Reports: Dyslipidemia Cardiovascular: Reports: Hypertension Respiratory: Reports: None Hematological: Reports: None Gastrointestinal: Reports: None Genitourinary: Reports: None Neuro/Psych: Reports: None Musculoskeletal: Reports: None Cancer: Reports: Lung Last Menstrual Period: Hyst - Surgical History General Surgical History: Reports: Other (lung resection) - Family History Family History: Reports: Unknown - Social History Smoking Status: Current every day smoker, Light tobacco smoker Hx Substance Use: No Alcohol Screening: None - Immunizations Tetanus Shot up to Date: Yes Physical Exam - Physical Exam Appearance: Well-appearing, No pain distress, Well-nourished Eyes: GIOVANNY, EOMI, Conjunctiva clear ENT: Ears normal, Nose normal, Oropharynx normal Neck: Supple Respiratory: Wheezes Cardiovascular: RRR, Pulses normal, No rub, No murmur GI/: Soft, Nontender, No masses, Bowel sounds normal, No Organomegaly Musculoskeletal: Normal strength, ROM intact, No edema, No calf tenderness Skin: Warm, Dry, Normal color Neurological: Sensation intact, Motor intact, Reflexes intact, Cranial nerves intact, Alert, Oriented Psychiatric: Affect appropriate, Mood appropriate Interpretation - Radiology Interpretation Radiology Interpretation By: Radiologist Radiology Results: Negative Exam Interpreted: CT Scan - EKG Interpretation Time of EKG #1: 20:52 Rate: Normal Rhythm: Sinus Ectopy: None [place]: NL ST Segment: Normal Interpretation: nsr Re-Evaluation - Re-Evaluation Time of Re-Evaluation: 20:52 Status: Improved Vital Signs Stable: Yes Pain Level: 0 Appearance: NAD Lungs: Clear Skin: Warm and Dry Neuro: Alert and Oriented X3 CV: RRR Critical Care Note - Critical Care Note Total Time (mins): 0 Course - Course Hematology/Chemistry: 12/04/18 19:30 12/04/18 19:30 Orders, Labs, Meds: Lab Review 12/04/18 12/04/18 12/04/18 19:16 19:20 19:30 WBC 17.55 H RBC 4.24 Hgb 13.0 Hct 40.0 MCV 94.3 MCH 30.7 MCHC 32.5 RDW Coeff of [place]anza 13.7 Plt Count 379 Neutrophils % (Manual) 81.0 H Lymphocytes % (Manual) 9.0 L Monocytes % (Manual) 7.0 Reactive Lymphocytes 3.0 Anisocytosis Not present Puncture Site Rrad O2 Saturation 94.0 L ABG pH 7.435 ABG pCO2 32.4 L ABG pO2 69.0 L ABG HCO3 21.8 L ABG Total CO2 23 ABG Base Excess -2 Jeet Test + FiO2 % 21.0 Sodium Potassium Chloride Carbon Dioxide Anion Gap BUN Creatinine Estimated GFR (MDRD) BUN/Creatinine Ratio Glucose Calcium Total Bilirubin AST ALT Alkaline Phosphatase NT-Pro-B Natriuret Pep Total Protein Albumin Globulin Albumin/Globulin Ratio Influ A Molecular Assay Negative by naat Influ B Molecular Assay Negative by naat 12/04/18 19:30 WBC RBC Hgb Hct MCV MCH MCHC RDW Coeff of Aranza Plt Count Neutrophils % (Manual) Lymphocytes % (Manual) Monocytes % (Manual) Reactive Lymphocytes Anisocytosis Puncture Site O2 Saturation ABG pH ABG pCO2 ABG pO2 ABG HCO3 ABG Total CO2 ABG Base Excess Jeet Test FiO2 % Sodium 136.5 Potassium 3.75 Chloride 103.9 Carbon Dioxide 25.1 Anion Gap 11.25 BUN 8.7 Creatinine 0.98 Estimated GFR (MDRD) 58.00 BUN/Creatinine Ratio 8.87 Glucose 126.1 H Calcium 9.02 Total Bilirubin 0.88 AST 30.7 ALT 22.4 Alkaline Phosphatase 118.2 NT-Pro-B Natriuret Pep 181.000 H Total Protein 6.96 Albumin 4.26 Globulin 2.70 Albumin/Globulin Ratio 1.57 Influ A Molecular Assay Influ B Molecular Assay Orders Category Date Time Status ABG DRAW REQUEST Stat CARDIO 12/04/18 19:17 Completed EKG-(ED ONLY) Stat CARDIO 12/04/18 19:17 Completed NEBULIZER TREATMENT Stat CARDIO 12/04/18 19:18 Completed ED FIRE PREVENTION SPECIALIST APPLIED .ONCE EMERGENCY 12/04/18 19:17 Active ED IV/MEDIPORT/POWERPORT .ONCE EMERGENCY 12/04/18 19:17 Active ABG Stat LAB 12/04/18 19:16 Completed BLOOD CULTURE (ED ONLY) Stat LAB 12/04/18 19:30 Received CBC W/ AUTO DIFF Stat LAB 12/04/18 19:30 Completed COMPREHENSIVE METABOLIC PANEL Stat LAB 12/04/18 19:30 Completed FLU A/B MOLECULAR Stat LAB 12/04/18 19:20 Completed MANUAL DIFFERENTIAL Stat LAB 12/04/18 19:30 Completed NT-PROBNP Stat LAB 12/04/18 19:30 Completed 0.9 % Sodium Chloride [Saline Flush] MEDS 12/04/18 19:16 Ordered 1 syr IVF PRN PRN Ipratropium/Albuterol Neb [Duoneb] MEDS 12/04/18 19:18 Discontinued 1 vial NEB ONCE STA Levalbuterol HCl [Xopenex 1.25 mg] MEDS 12/04/18 19:18 Discontinued 1 vial NEB ONCE STA Methylprednisolone Sod Succ/Pf [Solu-Medrol 125 mg] MEDS 12/04/18 19:17 Discontinued 125 mg IVP ONCE STA CT CHEST W/O CONTRAST Stat RADS 12/04/18 19:19 Completed Medications Generic Name Dose Route Start Last Admin Trade Name Freq PRN Reason Stop Dose Admin Sodium Chloride 1 syr 12/04/18 19:16 12/04/18 19:37 Saline Flush IVF 1 syr PRN PRN Administration To flush IV Discontinued Medications Generic Name Dose Route Start Last Admin Trade Name Freq PRN Reason Stop Dose Admin Albuterol/Ipratropium 1 vial 12/04/18 19:18 12/04/18 19:40 Duoneb NEB 12/04/18 19:19 1 vial ONCE STA Administration Levalbuterol HCl 1 vial 12/04/18 19:18 12/04/18 19:30 Xopenex 1.25 Mg NEB 12/04/18 19:19 1 vial ONCE STA Administration Methylprednisolone Sodium Succinate 125 mg 12/04/18 19:17 12/04/18 19:36 Solu-Medrol 125 Mg IVP 12/04/18 19:18 125 mg ONCE STA Administration Vital Signs: Temp Pulse Resp BP Pulse Ox 12/04/18 19:16 99.1 F 104 H 28 H 136/79 93 L Departure - Departure Time of Disposition: 20:53 Disposition: HOME SELF-CARE Discharge Problem: COPD exacerbation Instructions: COPD (Chronic Obstructive Pulmonary Disease) (ED) Condition: Good Pt referred to PMD for follow-up: Yes IPMP verified?: No Allergies/Adverse Reactions: Allergies amoxicillin [From Augmentin] Adverse Reaction (Verified 12/04/18 19:21) clavulanic acid [From Augmentin] Adverse Reaction (Verified 12/04/18 19:21) morphine Adverse Reaction (Verified 12/04/18 19:21) pravastatin [From Pravachol] Adverse Reaction (Verified 12/04/18 19:21) risedronate sodium [From Actonel] Adverse Reaction (Verified 04/28/19 19:21) Home Medications: Ambulatory Orders Cholecalciferol (Vitamin D3) [Vitamin D3] 5,000 mg PO DAILY 04/18/13 Cyanocobalamin (Vitamin B-12) [Vitamin B-12] 2,500 mg PO DAILY 04/18/13 Fexofenadine HCl [Tammi Allergy] 180 mg PO DAILY 07/23/14 Metoprolol Succinate [Toprol Xl] 20 mg PO DAILY 07/23/14 Estradiol [Estrace] 0.5 mg PO DAILY 05/25/16 Simvastatin [Zocor] 20 mg PO DAILY 05/25/16 Escitalopram Oxalate [Lexapro] 5 mg PO BEDTIME 06/08/17 Pantoprazole Sodium [Protonix] 40 mg PO DAILY 06/08/17 Mometasone Furoate [[place]] 15 gm TP BID 03/08/18 Tiotropium Br/Olodaterol HCl [Stiolto Respimat Inhal [place]] 2 puff IH DAILY Disposition Discussed With: Patient, Family
[2018-12-04] MEDS ORDERED: TYLENOL PO PRN (20:55)
[2018-12-04] MEDS ORDERED: LEVAQUIN 500 MG in PREMIX 100 ML D5W 1 BAG IV SCH (21:00)
[2018-12-04] MEDS ORDERED: SOLU-MEDROL 40 MG IVP SCH (21:00)
[2018-12-04 22:07] VITALS: BMI 25.9
[2018-12-04] MEDS ORDERED: LEVAQUIN 100 ML IV ONE (22:20)
[2018-12-04] MEDS: SYMBICORT 160-4.5 MCG INHALER IH SCH (22:25)
[2018-12-04] MEDS: DUONEB NEB SCH (23:05)
[2018-12-05] MEDS: DUONEB NEB SCH ×6 (02:00→21:55)
[2018-12-05] MEDS: SYMBICORT 160-4.5 MCG INHALER IH SCH ×2 (08:36→20:32)
[2018-12-05] MEDS: SOLU-MEDROL 125 MG IVP SCH ×3 (08:37→20:31)
[2018-12-05] MEDS: TOPROL XL PO SCH (08:38)
[2018-12-05] MEDS: PROTONIX PO SCH (08:39)
[2018-12-05] MEDS: ZOCOR PO SCH (08:39)
[2018-12-05] MEDS: VITAMIN D PO SCH (08:39)
[2018-12-05] MEDS: CLARITIN PO SCH (08:39)
[2018-12-05] MEDS: CYANOCOBALAMIN PO SCH (08:40)
[2018-12-05] MEDS: ESTRADIOL 0.5 MG PO SCH (08:41)
[2018-12-05] MEDS: LOVENOX SUBCUT SCH (08:55)
[2018-12-05] MEDS ORDERED: [UNRECOGNIZED DRUG - REMARK] PO SCH (09:00)
[2018-12-05] MEDS ORDERED: MOMETASONE FUROATE 15 GM TP SCH (09:00)
[2018-12-05] MEDS ORDERED: ELOCON TP SCH (09:00)
[2018-12-05] MEDS ORDERED: NON-FORMULARY MEDICATION (Simvastatin [Zocor] 20 MG) PO SCH (09:00)
[2018-12-05] MEDS ORDERED: LEVAQUIN 500 MG in PREMIX 100 ML D5W 1 BAG IV SCH (09:00)
[2018-12-05] MEDS ORDERED: CHOLECALCIFEROL 5000 MG PO SCH (09:00)
[2018-12-05] MEDS: LEVAQUIN 500 MG in PREMIX 100 ML D5W 1 BAG IV SCH (20:30)
[2018-12-05] MEDS: LEXAPRO PO SCH (20:32)
[2018-12-05] MEDS ORDERED: NON-FORMULARY MEDICATION (Escitalopram Oxalate [Lexapro] 5 MG) PO SCH (21:00)
[2018-12-06] MEDS: DUONEB NEB SCH ×6 (02:00→21:20)
[2018-12-06] MEDS: PROTONIX PO SCH (05:37)
[2018-12-06] MEDS: VITAMIN D PO SCH (08:26)
[2018-12-06] MEDS: TOPROL XL PO SCH (08:27)
[2018-12-06] MEDS: CLARITIN PO SCH (08:27)
[2018-12-06] MEDS: ZOCOR PO SCH (08:27)
[2018-12-06] MEDS: SOLU-MEDROL 125 MG IVP SCH (08:28)
[2018-12-06] MEDS: CYANOCOBALAMIN PO SCH (08:29)
[2018-12-06] MEDS: ESTRADIOL 0.5 MG PO SCH (08:29)
[2018-12-06] MEDS: LOVENOX SUBCUT SCH (08:30)
[2018-12-06] MEDS: SYMBICORT 160-4.5 MCG INHALER IH SCH ×2 (08:32→20:37)
[2018-12-06] MEDS: LEVAQUIN 500 MG in PREMIX 100 ML D5W 1 BAG IV SCH (20:37)
[2018-12-06] MEDS: LEXAPRO PO SCH (20:37)
[2018-12-07] MEDS: DUONEB NEB SCH ×3 (01:37→10:10)
[2018-12-07 04:58] VITALS: BP 106/62; TEMP 97.6
[2018-12-07] MEDS: PROTONIX PO SCH (05:36)
[2018-12-07] MEDS: TOPROL XL PO SCH (08:00)
[2018-12-07] MEDS ORDERED: PREDNISONE PO SCH (08:00)
[2018-12-07] MEDS: SYMBICORT 160-4.5 MCG INHALER IH SCH (08:01)
[2018-12-07] MEDS: CLARITIN PO SCH (08:01)
[2018-12-07] MEDS: VITAMIN D PO SCH (08:01)
[2018-12-07] MEDS: ZOCOR PO SCH (08:01)
[2018-12-07] MEDS: CYANOCOBALAMIN PO SCH (08:02)
[2018-12-07] MEDS: ESTRADIOL 0.5 MG PO SCH (08:02)
[2018-12-07] MEDS: LOVENOX SUBCUT SCH (08:02)
--- NOTE | 2018-12-07 10:13 | DI ---
EXAM: Two views of the chest. History: Chronic obstructive pulmonary disease exacerbation. Comparison: Chest radiograph 07/08/2016, chest CT 12/04/2018 Findings: Heart size is normal. Postsurgical changes again seen within the right upper lung. Bronc hial wall thickening and persistent lingular consolidation. No pleural fluid and no pneumothorax. N o acute osseous abnormalities. Impression: Bronchial wall thickening and persistent lingular consolidation suspicious for pneumonia .
== END 2018-12-07 11:50 | disposition home or self-care (01) | DRG 190 ==
LOC: ED 19:15 → MEDSURG B 21:00
PROVIDERS: ADMIT Family Medicine; ATTEND Family Medicine
DX: J44.1 Chronic obstructive pulmonary disease with (acute) exacerbation (principal); J96.01 Acute respiratory failure with hypoxia; J06.9 Acute upper respiratory infection, unspecified; R05 Cough; R06.2 Wheezing; R06.00 Dyspnea, unspecified; Z72.0 Tobacco use
CPT/HCPCS: 36415; 80053; 82803; 83880; 85007; 85025; 87040; 87502; 93005; 93010; 94640; 94761; 96374; 96375; 99285

== ENCOUNTER 2023-01-23 02:04 | Observation (INO) ==
[2023-01-23] MEDS ORDERED: DUONEB NEB ONE ×3 (02:11→04:02)
--- NOTE | 2023-01-23 02:20 | ED.PDOC ---
General ED Provider: Dr. ROMIE UGARTE MD Chief Complaint: Shortness of Air Stated Complaint: short of breath 67-year-old female presents emergency department for evaluation of shortness of breath. States that her breathing became labored earlier today. Got a lot worse tonight when she tried to lie down. Reports she has had a cough that is occasionally productive. Feels like her chest is very full. Denies any weight gain. No chest pain. has been sick with fever and similar symptoms for the past few days. Time Seen by Provider: 01/23/23 02:13 Mode of Arrival: Walk-In Information Source: Patient Primary Care Provider: MADELINE GONZALES Nursing and Triage Documentation Reviewed and Agree: Yes Does patient meet sepsis criteria?: No If yes, has appropriate treatment been initiated?: No System Inflammatory Response Syndrome: Not Applicable Sepsis Protocol: For patient's 13 years and over: Temp is 96.8 and below OR 101 and greater Pulse >90 BPM Resp >20/minute Acutely Altered Mental Status Are patient's symptoms suggestive of a new infection, such as: -Pneumonia -Skin, Soft Tissue -Endocarditis -UTI -Bone, Joint Infection -Implantable Device -Acute Abdominal Infection -Wound Infection -Meningitis -Blood Stream Catheter Infection -Unknown Review of Systems Review Of Systems Constitutional: Reports No symptoms Respiratory: Reports Cough, Shortness of Breath and Wheezing Cardiac: Denies Chest pain or Syncope All Other Systems: Reviewed and Negative [facility] Medical History (Updated 01/23/23 @ 03:24 by ROMIE UGARTE MD) Elevated cholesterol E78.00 - Pure hypercholesterolemia, unspecified (ICD-10) Seasonal allergies J30.2 - Other seasonal allergic rhinitis (ICD-10) Family History Mother Elevated cholesterol Seasonal allergies Hypertension FATHER Alcoholism SISTER Elevated cholesterol Blood disease Hypertension BROTHER Elevated cholesterol Alcoholism Blood disease Hypertension Other Cancer Obstetric anesthesia problems Social History Smoking and tobacco status: Current every day smoker Alcohol intake: never Substance use type: does not use Housing: house Seatbelt use: always Drives intoxicated or rides with intoxicated ross carrier driver: No Water heater temperature set < 120 degrees: Yes Working smoke detector in home: Yes Fire extinguisher in home: Yes Carbon monoxide detector in home: Yes Firearms in home: Yes Surgical History Status post appendectomy Z90.49 - Acquired absence of other specified parts of digestive tract (ICD- 10) Status post cholecystectomy Z90.49 - Acquired absence of other specified parts of digestive tract (ICD- 10) Status post hysterectomy Z90.710 - Acquired absence of both cervix and uterus (ICD-10) Status post tonsillectomy Z90.89 - Acquired absence of other organs (ICD-10) Female Reproductive History Menstrual Hx Hysterectomy: Yes Hx Tubal Ligation: No Physical Exam Physical Exam Appearance: Reports Thin Ill-appearing: Moderate Pain Distress: None Eyes: Reports EOMI ENT: Reports Not Examined Neck: Supple Respiratory: Reports Airway patent, Breath sounds diminished, Wheezes and Other (Labored breathing) Cardiovascular: Reports Tachycardia GI/: Reports Soft and Nontender Musculoskeletal: Reports No edema and No calf tenderness Skin: Reports Warm and Dry Neurological: Reports Alert and Oriented Psychiatric: Reports Affect appropriate Interpretation EKG Interpretation EKG Interpretation By: ED Physician Time of EKG #1: 02:24 Rate: Normal Rhythm: Sinus Ectopy: None [place]: NL ST Segment: Normal Interpretation: Ordered and interpreted by me, rate 99, no ectopy, no ST changes Critical Care Note Critical Care Note Total Critical Care Time (mins): 33 Comments: 33 minutes critical care time was spent in [id number] evaluation, ordering and interpreting laboratory and radiographic data. Patient also frequently reassessed at the bedside for improving respiratory status or deterioration. At risk for deterioration given the rapid onset with which her symptoms presented. Patient with underlying lung disease. Required breathing treatments, steroids. Course Course 01/23/23 02:34 01/23/23 02:34 Orders, Labs, Meds: Lab Review 01/23/23 02:34 WBC 12.67 H RBC 4.43 Hgb 13.7 Hct 42.1 MCV 95.0 MCH 30.9 MCHC 32.5 RDW Coeff of Aranza 13.6 Plt Count 376 Immature Gran % (Auto) 0.6 Neut % (Auto) 77.2 H Lymph % (Auto) 13.7 Whiteside % (Auto) 6.3 Eos % (Auto) 1.7 Baso % (Auto) 0.5 Neut # (Auto) 9.8 H Lymph # (Auto) 1.7 Whiteside # (Auto) 0.8 Eos # (Auto) 0.2 Baso # (Auto) 0.1 Immature Gran # (Auto) 0.1 Sodium 140.5 Potassium 4.14 Chloride 107.1 H Carbon Dioxide 30.1 H Anion Gap 7.44 BUN 11.3 Creatinine 0.97 Estimated GFR (MDRD) 57.00 BUN/Creatinine Ratio 11.64 Glucose 140.2 H Lactic Acid 1.56 Calcium 9.26 Total Bilirubin 0.33 AST 23.4 ALT 19.9 Alkaline Phosphatase 136.2 Troponin I < 0.012 NT-Pro-B Natriuret Pep 26 Total Protein 6.90 Albumin 3.95 Globulin 2.95 Albumin/Globulin Ratio 1.33 Procalcitonin < 0.05 Orders Category Date Time Status ADMIT OBSERVATION [PLACE PATIENT OBSERVATION] .TO ADMISSION 01/23/23 03:19 Ordered MEDSURG (MONITORED BED) EKG-(ED ONLY) Stat CARDIO 01/23/23 02:11 Completed NEBULIZER TREATMENT Routine CARDIO 01/23/23 03:20 Ordered OXYGEN Routine CARDIO 01/23/23 03:21 Ordered ACTIVITY .Up With Assistance CARE 01/23/23 03:21 Ordered INTAKE & OUTPUT Q8HR CARE 01/23/23 03:21 Ordered IP: INSERT SALINE LOCK ONCE CARE 01/23/23 03:21 Ordered TELEMETRY MONITORING TELE CARE 01/23/23 03:20 Ordered VITAL SIGNS Q8HR CARE 01/23/23 03:21 Ordered REGULAR DIET DIETARY 01/23/23 Breakfast Ordered ED IV/MEDIPORT/POWERPORT .ONCE EMERGENCY 01/23/23 02:11 Active ABG COOX Stat LAB 01/23/23 02:36 Received C-REACTIVE PROTEIN Stat LAB 01/23/23 02:34 Received CBC W/ AUTO DIFF Stat LAB 01/23/23 02:34 Completed CMP [COMPREHENSIVE METABOLIC PANEL] Stat LAB 01/23/23 02:34 Completed COVID [SARS COV-2 RNA RAPID ELANA] Stat LAB 01/23/23 02:50 Received ED PROBNP [NT-PROBNP(ED)] Stat LAB 01/23/23 02:34 Completed LACTIC ACID Stat LAB 01/23/23 02:34 Completed PROCALCITONIN Stat LAB 01/23/23 02:34 Completed TROPONIN I Stat LAB 01/23/23 02:34 Completed 0.9 % Sodium Chloride [Saline Flush] Meds 01/23/23 02:11 Active 1 syr IVF PRN PRN Doxycycline Hyclate Meds 01/23/23 03:21 Once 100 mg PO ONCE ONE Ipratropium/Albuterol Neb [Duoneb] Meds 01/23/23 02:20 Discontinued 3 ml NEB .STK-MED ONE Ipratropium/Albuterol Neb [Duoneb] Meds 01/23/23 02:11 Discontinued 3 ml NEB ONCE ONE Ipratropium/Albuterol Neb [Duoneb] Meds 01/23/23 03:30 Ordered 3 ml NEB Q4H Methylprednisolone Sod Succ/Pf [Solu-Medrol 125 mg] Meds 01/23/23 02:58 Discontinued 80 mg IVP ONCE ONE RESUSCITATION STATUS Routine OTHERS 01/23/23 03:21 Ordered CHEST, 1V AP ONLY Stat RADS 01/23/23 02:11 Completed Medications Generic Name Dose Route Start Last Admin Trade Name Freq PRN Reason Stop Dose Admin Albuterol/Ipratropium 3 ml 01/23/23 03:30 Ipratropium/Albuterol Vial.Neb NEB Q4H KIMBERLEY Sodium Chloride 1 syr 01/23/23 02:11 0.9% Sodium Chloride 10 Ml Disp.Syrin IVF PRN PRN To flush IV Discontinued Medications Generic Name Dose Route Start Last Admin Trade Name Freq PRN Reason Stop Dose Admin Albuterol/Ipratropium 3 ml 01/23/23 02:11 01/23/23 02:34 Ipratropium/Albuterol Vial.Neb NEB 01/23/23 02:12 3 ml ONCE ONE Administration Methylprednisolone Sodium Succinate 80 mg 01/23/23 02:58 01/23/23 03:04 Methylprednisolone Sod Succ/Pf 125 Mg/2 Ml Vial IVP 01/23/23 02:59 80 mg ONCE ONE Administration Patient with labored breathing on arrival. Does not normally use oxygen but is 87% on room air. Placed on nasal cannula only increased to 90%. Was given a DuoNeb shortly after arrival with increased aeration but still felt as though she could not catch her breath. Second breathing treatment was ordered. Cardiac biomarkers unremarkable. Suspect that this is her COPD with possible right middle lobe infiltrate. Will await radiology read for official impression. 3:22 AM Patient reassessed and is feeling much better after second breathing treatment. Still requiring oxygen. Is 90% on 2 L by nasal cannula. She still has mild labored breathing but significantly improved from arrival. Believe she would benefit from hospitalization. Patient and her agree. Case was discussed with hospitalist team. They will accept the patient for admission. Given patient's history of COPD, productive cough and worsening respiratory status we will initiate antibiotics in absence of radiographic findings of pneumonia. Vital Signs: Temp Pulse Resp BP Pulse Ox 01/23/23 02:07 97.7 F 103 H 28 H 125/74 88 L Discharge Plan Discharge Patient Disposition: PLACED OBSERVATION Discharge Problem: COPD exacerbation Prescriptions: No Action fexofenadine [Tammi Allergy] 180 MG tablet 180 mg PO DAILY metoprolol succinate [Toprol XL] 25 MG tablet extended release 24 hr 25 mg PO DAILY atorvastatin [Lipitor] 20 mg Tablet 20 mg PO DAILY cyanocobalamin (vitamin B-12) [Vitamin B-12] 2,500 mcg Tablet, Sublingual 2,500 mcg SUBLINGUAL DAILY Stiolto Respimat 2.5-2.5 mcg/actuation Mist 2 puff INHALATION DAILY albuterol 90 mcg/actuation Aerosol 90 mcg INHALATION Q4-6H PRN (Reason: SOB) ipratropium-albuterol 0.5 mg-3 mg(2.5 mg base)/3 mL Solution For Nebulization 3 ml INHALATION Q4-6H PRN (Reason: sob) calcium carbonate-vitamin D3 [Calcium 600 + D(3)] 600 mg-10 mcg (400 unit) Tablet 1 tab PO DAILY pantoprazole [Protonix] 40 mg Tablet,Delayed Release (Dr/Ec) 40 mg PO DAILY ibuprofen 600 mg tablet 600 mg PO Q6H PRN (Reason: pain) Qty: 30 0RF doxycycline hyclate 100 mg capsule 100 mg PO BID Qty: 20 0RF famotidine 20 mg tablet 20 mg PO BID Qty: 30 0RF Rx Instructions: stop pantoprazole while taking famotidine Did you review [place] [employer] for ALL controlled substances?: Not Applicable ED Provider: ROMIE UGARTE Physician Progress Note: []
[2023-01-23 02:42] LABS: BASOPHILS # (AUTO) 0.1 K/uL (0-0.2); BASOPHILS % (AUTO) 0.5 % (0.0-3.0); EOSINOPHILS # (AUTO) 0.2 K/ul (0.0-0.7); EOSINOPHILS % (AUTO) 1.7 % (0.0-7.0); HEMATOCRIT 42.1 % (37.0-47.0); HEMOGLOBIN 13.7 g/dl (12.0-16.0); IMMATURE GRANULOCYTE # (AUTO) 0.1 (0.0-1.0); IMMATURE GRANULOCYTE % (AUTO) 0.6 % (0.0-5.0); LYMPHOCYTES # (AUTO) 1.7 K/uL (0.60-3.4); LYMPHOCYTES % (AUTO) 13.7 (10.0-50.0); MEAN CORPUSCULAR HEMOGLOBIN 30.9 pg (27.0-31.0); MEAN CORPUSCULAR HGB CONC 32.5 (31.8-35.4); MONOCYTES # (AUTO) 0.8 K/uL (0.4-2.0); MONOCYTES % (AUTO) 6.3 (0-10); NEUTROPHILS # (AUTO) 9.8 K/ul (2.0-6.9); NEUTROPHILS % (AUTO) 77.2 % (42.2-75.2); PLATELET COUNT 376 10^3/uL (140-440); RDW COEFFICIENT OF VARIATION 13.6 % (11.6-14.8); RED BLOOD COUNT 4.43 10^6/ul (4.20-5.40); WHITE BLOOD COUNT 12.67 K/ul (4.6-10.2)
[2023-01-23 02:56] LABS: ALANINE AMINOTRANSFERASE 19.9 U/L (0-35); ALBUMIN 3.95 g/dL (3.5-5.0); ALKALINE PHOSPHATASE 136.2 U/L (53-141); ASPARTATE AMINO TRANSFERASE 23.4 U/L (14-36); BILIRUBIN,TOTAL 0.33 mg/dL (0.2-1.3); BLOOD UREA NITROGEN 11.3 mg/dL (7-17); CALCIUM 9.26 mg/dL (8.4-10.2); CARBON DIOXIDE 30.1 mmol/L (22-30.0); CHLORIDE 107.1 mmol/L (98-107); CREATININE 0.97 mg/dL (0.60-1.30); GLUCOSE 140.2 mg/dL (74-106); POTASSIUM 4.14 mmol/L (3.5-5.1); SODIUM 140.5 mmol/L (134.5-145)
[2023-01-23] MEDS ORDERED: SOLU-MEDROL 125 MG IVP ONE (02:58)
[2023-01-23 03:08] LABS: TROPONIN I < 0.012 ng/ml (0.0000-0.120)
--- NOTE | 2023-01-23 03:14 | DI ---
EXAM: CHEST, ONE-VIEW HISTORY: Shortness of breath FINDINGS: Cardiac and mediastinal contours are normal. Pulmonary vasculature is normal. Chain sutu res in the right upper lung. The lungs are hyperexpanded. No infiltrative opacities. Bony thorax i s unremarkable. IMPRESSION: Chronic obstructive pulmonary disease No acute cardiopulmonary disease
[2023-01-23] MEDS ORDERED: DOXYCYCLINE HYCLATE PO ONE (03:21)
[2023-01-23 03:29] LABS: SARS COV-2 RNA RAPID NAAT NEGATIVE (NEGATIVE)
[2023-01-23 05:02] VITALS: BMI 30.3
[2023-01-23] MEDS: DUONEB NEB SCH ×6 (07:12→20:59)
[2023-01-23] MEDS ORDERED: TYLENOL PO PRN (08:29)
[2023-01-23] MEDS ORDERED: NON-FORMULARY MEDICATION (Albuterol 90 mcg/actuation Aerosol) IH PRN (09:43)
[2023-01-23] MEDS: DOXY-100 100 MG in SODIUM CHLORIDE 100ML 100 ML IV SCH ×2 (09:54→20:33)
[2023-01-23] MEDS: LOVENOX SUBCUT SCH (09:54)
--- NOTE | 2023-01-23 10:22 | PCM ---
Date of Service Date Seen by Provider: 01/23/23 Time Seen by Provider: 08:15 Admit Day/Time Admission Date: 01/23/23 Admission Time: 03:19 Reason for Admission Chief Complaint: COPD EXACERBATION Hospital Provider Hospital Provider: IRVING SANDERS PA-C, [facility] Primary Care Physician Primary Care Physician: MADELINE GONZALES History of Present Illness History of Present Illness: Patient is a 67-year-old female with past medical history of COPD, ELY, hypertension, hyperlipidemia, GERD, mesothelioma who presented to the ER with worsening shortness of breath. She does not normally wear home oxygen. She sometimes uses her 's as needed if she feels she needs it. She uses home inhalers. However she has continued to worsen over the last few days. She has a productive cough. She was noted to be in some respiratory distress in the ER. She was given 2 nebulizers, Solu-Medrol, doxycycline. Chest x-ray negative. Patient was hypoxic at 87% on room air. She was placed on 2 L. 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 On my evaluation this morning the patient states that she feels better since her presentation last night but she still does not feel well. She is sitting at the side of the bed holding onto the table. She states this is helping her breathe. She is still requiring oxygen. She is an every day smoker. She has not had any recent hospitalizations due to lung issues. Case Discussed With Case Discussed With: Patient's case was discussed with the ER Physicians, Dr. Aparicio. [facility] Medical History Elevated cholesterol E78.00 - Pure hypercholesterolemia, unspecified (ICD-10) Seasonal allergies J30.2 - Other seasonal allergic rhinitis (ICD-10) Surgical History Status post appendectomy Z90.49 - Acquired absence of other specified parts of digestive tract (ICD- 10) Status post cholecystectomy Z90.49 - Acquired absence of other specified parts of digestive tract (ICD- 10) Status post hysterectomy Z90.710 - Acquired absence of both cervix and uterus (ICD-10) Status post tonsillectomy Z90.89 - Acquired absence of other organs (ICD-10) Family History Mother Elevated cholesterol Seasonal allergies Hypertension FATHER Alcoholism SISTER Elevated cholesterol Blood disease Hypertension BROTHER Elevated cholesterol Alcoholism Blood disease Hypertension Other Cancer Obstetric anesthesia problems Social History Smoking and tobacco status: Current every day smoker Alcohol intake: never Substance use type: does not use Housing: house Seatbelt use: always Drives intoxicated or rides with intoxicated nascar driver: No Water heater temperature set < 120 degrees: Yes Working smoke detector in home: Yes Fire extinguisher in home: Yes Carbon monoxide detector in home: Yes Firearms in home: Yes Allergies Allergies Allergy/AdvReac Type Severity Reaction Status Date / Time clavulanic acid AdvReac Unknown Verified 01/23/23 02:21 [From Augmentin] morphine AdvReac Unknown Verified 01/23/23 02:21 pravastatin [From Pravachol] AdvReac Unknown Verified 01/23/23 02:21 risedronate sodium AdvReac Unknown Verified 01/23/23 02:21 [From Actonel] Current Medications Home Medications fexofenadine 180 mg tablet (Tammi Allergy) 180 mg PO DAILY 07/23/14 [History Confirmed 01/23/23 Last Taken 12/04/18 07:00] metoprolol succinate 25 mg tablet,extended release 24 hr (Toprol XL) 25 mg PO DAILY 07/23/14 [History Confirmed 01/23/23 Last Taken 12/03/18 20:00] pantoprazole 40 mg tablet,delayed release (Protonix) 40 mg PO DAILY 08/17/21 [History Confirmed 01/23/23 Last Taken Unknown] albuterol 90 mcg/actuation aerosol inhaler 90 mcg inhalation Q4-6H PRN SOB 10/29/21 [History Confirmed 01/23/23 Last Taken Unknown] atorvastatin 20 mg tablet (Lipitor) 40 mg PO DAILY 10/29/21 [History Confirmed 01/23/23 Last Taken Unknown] calcium carbonate 600 mg-vitamin D3 10 mcg (400 unit) tablet (Calcium 600 + D(3)) 1 tab PO DAILY 10/29/21 [History Confirmed 01/23/23 Last Taken Unknown] cyanocobalamin (vitamin B-12) 2,500 mcg sublingual tablet (Vitamin B-12) 2,500 mcg sublingual DAILY 10/29/21 [History Confirmed 01/23/23 Last Taken Unknown] ipratropium 0.5 mg-albuterol 3 mg (2.5 mg base)/3 mL nebulization soln 3 ml inhalation Q4-6H PRN sob 10/29/21 [History Confirmed 01/23/23 Last Taken Unknown] tiotropium 2.5 mcg-olodaterol 2.5 mcg/actuation mist for inhalation (Stiolto Respimat) 2 puff inhalation BID 10/29/21 [History Confirmed 01/23/23 Last Taken Unknown] ibuprofen 600 mg tablet 600 mg PO Q6H PRN pain #30 tabs 05/15/22 [Rx Confirmed 01/23/23 Last Taken Unknown] Home Acetaminophen (Acetaminophen 325 Mg Tablet) 650 mg PO Q4H PRN PRN Reason: Mild Pain Albuterol/Ipratropium (Ipratropium/Albuterol Vial.Neb) 3 ml NEB RTQ4H KIMBERLEY Last Admin: 01/23/23 09:45 Dose: 3 ml Enoxaparin Sodium (Enoxaparin Sodium 40 Mg/0.4 Ml Syr) 40 mg SUBCUT DAILY [facility] Last Admin: 01/23/23 09:54 Dose: 40 mg Doxycycline Hyclate 100 mg/ (Sodium Chloride) 100 mls @ 50 mls/hr IV Q12HR KIMBERLEY Stop: 01/26/23 08:59 Last Admin: 01/23/23 09:54 Dose: 50 mls/hr MAGNESIUM SULFATE IN WATER (Magnesium Sulf 2 G/50 Ml Bag) 2 gm in 50 mls @ 25 mls/hr IV ONCE ONE Stop: 01/23/23 12:34 Methylprednisolone Sodium Succinate (Methylprednisolone Sod Succ/Pf 125 Mg/2 Ml Vial) 40 mg IVP Q8HR [facility] Non-Formulary Medication (Atorvastatin [Lipitor]) 40 mg PO DAILY [facility] Non-Formulary Medication (Albuterol) 90 mcg IH Q4-6H PRN PRN Reason: Wheezing Non-Formulary Medication (Calcium Carbonate-Vitamin D3 [Calcium 600 + D(3)]) 1 tab PO DAILY [facility] Non-Formulary Medication (Cyanocobalamin (Vitamin B-12) [Vitamin B-12]) 2,500 mcg SL DAILY [facility] Non-Formulary Medication (Fexofenadine [Tammi Allergy]) 180 mg PO DAILY [facility] Non-Formulary Medication (Metoprolol Succinate [Toprol Xl]) 25 mg PO DAILY [facility] Non-Formulary Medication (Pantoprazole [Protonix]) 40 mg PO DAILY [facility] Non-Formulary Medication (Tiotropium-Olodaterol [Stiolto Respimat]) 2 puff IH BID [facility] Sodium Chloride (0.9% Sodium Chloride 10 Ml Disp.Syrin) 1 syr IVF PRN PRN PRN Reason: To flush IV Discontinued Medications Albuterol/Ipratropium (Ipratropium/Albuterol Vial.Neb) 3 ml NEB ONCE ONE Stop: 01/23/23 02:12 Last Admin: 01/23/23 02:34 Dose: 3 ml Albuterol/Ipratropium (Ipratropium/Albuterol Vial.Neb) 3 ml NEB Q4H KIMBERLEY Last Admin: 01/23/23 07:33 Dose: Not Given Albuterol/Ipratropium (Ipratropium/Albuterol Vial.Neb) 3 ml NEB ONCE ONE Stop: 01/23/23 04:03 Last Admin: 01/23/23 04:05 Dose: 3 ml Doxycycline Hyclate (Doxycycline Hyclate 100 Mg Capsule) 100 mg PO ONCE ONE Stop: 01/23/23 03:22 Last Admin: 01/23/23 04:05 Dose: 100 mg Methylprednisolone Sodium Succinate (Methylprednisolone Sod Succ/Pf 125 Mg/2 Ml Vial) 80 mg IVP ONCE ONE Stop: 01/23/23 02:59 Last Admin: 01/23/23 03:04 Dose: 80 mg Review of Systems Constitutional: Reports Fatigue and Weakness; Denies Fever Head: Reports Normocephalic and Atraumatic Eyes: Denies Vision Changes Ears: Denies Pain or Drainage Nose: Denies Post Nasal Drip or Congestion Throat: Denies Sore Throat or Difficulty Swallowing Cardiovascular: Denies Chest pain, Chest Pressure or Edema Respiratory: Reports Cough, Shortness of air and Wheeze Gastrointestinal: Denies Nausea, Vomiting, Diarrhea or Abdominal pain Genitourinary: Denies Dysuria Dermatologic: Denies Rashes Neurological: Denies Headache, Dizziness, Syncope or Seizure Physical examination Most Recent Vital Signs: Most Recent Vital Signs Temperature 97.8 F 01/23/23 04:31 Temperature Source Oral 01/23/23 04:31 Temperature Source Infrared 01/23/23 02:07 Pulse Rate 95 01/23/23 04:31 Respiratory Rate 24 H 01/23/23 04:31 Blood Pressure 125/74 01/23/23 02:07 Blood Pressure Right Arm 123/61 01/23/23 04:31 Blood Pressure Position Supine 01/23/23 04:31 O2 Sat by Pulse Oximetry 97 01/23/23 10:00 Oxygen Delivery Method Nebulizer Treatment 01/23/23 10:00 Oxygen Flow Rate 8 01/23/23 10:00 Height 5 ft 2 in 01/23/23 04:31 Weight 166 lb 01/23/23 04:31 Telemetry Type Remote Telemetry 01/23/23 07:00 Telemetry Monitoring Started 01/23/23 07:00 Telemetry Heart Rate 102 H 01/23/23 07:00 EKG TN Interval 0.18 01/23/23 07:00 EKG QRS Interval 0.07 01/23/23 07:[address] 01/23/23 07:00 Appearance: Positive Well-appearing, Well-nourished and Ill-Appearing Skin: Positive [place], Warm, Good Turgor and Good Color; Negative Rashes HEENT: Positive Normocephalic and Atraumatic Neck: Positive Supple and Midline Trachea Chest/Lungs: Positive Wheezes (Bilateral ) and Other (Sitting on side of bed holding table/tripoding. Mild conversational dyspnea. ); Negative Rales, Rhonci or Good Air Movement all 4 Lung Ward (Decreased air movement yesy ) Heart: Positive RRR Extremities: Negative Edema Neurological: Positive Alert, Oriented and Muscle Strength 5/5 in Upper and Lower Extremities Bilaterally Psychiatric: Positive Oriented x4, Appropriate Mood, Appropriate Affect, Intact Memory, Normal Judgement and Normal Insight Labs This Visit Labs This Visit: Labs This Visit 01/23/23 01/23/23 02:34 02:50 WBC 12.67 H RBC 4.43 Hgb 13.7 Hct 42.1 MCV 95.0 MCH 30.9 MCHC 32.5 RDW Coeff of Aranza 13.6 Plt Count 376 Immature Gran % (Auto) 0.6 Neut % (Auto) 77.2 H Lymph % (Auto) 13.7 Major % (Auto) 6.3 Eos % (Auto) 1.7 Baso % (Auto) 0.5 Neut # (Auto) 9.8 H Lymph # (Auto) 1.7 Major # (Auto) 0.8 Eos # (Auto) 0.2 Baso # (Auto) 0.1 Immature Gran # (Auto) 0.1 Sodium 140.5 Potassium 4.14 Chloride 107.1 H Carbon Dioxide 30.1 H Anion Gap 7.44 BUN 11.3 Creatinine 0.97 Estimated GFR (MDRD) 57.00 BUN/Creatinine Ratio 11.64 Glucose 140.2 H Lactic Acid 1.56 Calcium 9.26 Total Bilirubin 0.33 AST 23.4 ALT 19.9 Alkaline Phosphatase 136.2 Troponin I < 0.012 NT-Pro-B Natriuret Pep 26 Total Protein 6.90 Albumin 3.95 Globulin 2.95 Albumin/Globulin Ratio 1.33 Procalcitonin < 0.05 SARS CoV-2 RNA Rapid ELANA Negative Imaging Imaging: EXAM: CHEST, ONE-VIEW HISTORY: Shortness of breath FINDINGS: Cardiac and mediastinal contours are normal. Pulmonary vasculature is normal. Chain sutures in the right upper lung. The lungs are hyperexpande d. No infiltrative opacities. Bony thorax is unremarkable. IMPRESSION: Chronic obstructive pulmonary disease No acute cardiopulmonary disease Review Statement Review Statement: I have independently reviewed and interpreted the labs/EKGs/imaging that were ordered by the ER provider. I have reviewed all outside records that are available currently in our EMR including imaging/notes/labs from previous visits. Plan Plan: 1. Acute hypoxic respiratory failure in setting of COPD exacerbation - RT consult, wean O2 when able, nebs q4hrs, solumedrol 40 mg ivp q8hrs and doxy 100 mg bid. Mag 2 gm x1 now. 2. Acute COPD exacerbation - Plan as above. 3. Hypertension - Continue home meds 4. Hyperlipidemia - Continue home meds 5. GERD - Continue home meds DVT Prophylaxis: Lovenox Time Spent: Greater than 80 minutes spent with patient, 50% of the time spent with this patient was devoted to counseling and coordination of care. [facility] Plannin minutes spent discussing advance care planning. DNR. Smoking Cessation: 3 minutes spent discussing smoking cessation. Admit to: Obs Discussed Plan of Care with Dr. Disha Campbell. Medications Medication Orders: Medications Ordered Category Date Time Status 0.9 % Sodium Chloride [Saline Flush] Meds 01/23/23 02:11 Active 1 syr IVF PRN PRN Acetaminophen [Tylenol] Meds 01/23/23 08:29 Active 650 mg PO Q4H PRN Doxycycline Hyclate Inj [Doxy-100] 100 mg Meds 01/23/23 09:00 Active 0.9 % Sodium Chloride [Sodium Chloride 100Ml] 100 ml IV Q12HR Enoxaparin Sodium [Lovenox] Meds 01/23/23 09:00 Active 40 mg SUBCUT DAILY Ipratropium/Albuterol Neb [Duoneb] Meds 01/23/23 10:00 Active 3 ml NEB RTQ4H Methylprednisolone Sod Succ/Pf [Solu-Medrol 125 mg] Meds 01/23/23 11:00 Active 40 mg IVP Q8HR albuterol Meds 01/23/23 09:43 Active 90 mcg IH Q4-6H PRN atorvastatin [Lipitor] Meds 01/23/23 09:00 Active 40 mg PO DAILY calcium carbonate-vitamin D3 [Calcium 600 + D(3)] Meds 01/23/23 09:00 Active 1 tab PO DAILY
[2023-01-23] MEDS ORDERED: MAGNESIUM SULF 2 G/50 ML BAG 2 GM/50 ML PIGGYBACK IV ONE (10:35)
[2023-01-23] MEDS: ATORVASTATIN 20 MG PO SCH (11:55)
[2023-01-23] MEDS: NON-FORMULARY MEDICATION (Tiotropium-Olodaterol [Stiolto Respimat] 2.5-2.5 mcg/actuation M IH SCH (11:55)
[2023-01-23] MEDS: PANTOPRAZOLE 40 MG PO SCH (11:55)
[2023-01-23] MEDS: [UNRECOGNIZED DRUG - REMARK] PO SCH (11:56)
[2023-01-23] MEDS: METOPROLOL SUCCINATE 25 MG PO SCH (11:56)
[2023-01-23] MEDS: SOLU-MEDROL 125 MG IVP SCH ×3 (12:58→20:33)
[2023-01-24] MEDS: DUONEB NEB SCH ×6 (01:10→21:08)
[2023-01-24] MEDS: SOLU-MEDROL 125 MG IVP SCH ×3 (04:39→20:25)
[2023-01-24 05:16] LABS: BASOPHILS # (AUTO) 0.1 K/uL (0-0.2); BASOPHILS % (AUTO) 0.2 % (0.0-3.0); HEMATOCRIT 46.1 % (37.0-47.0); HEMOGLOBIN 14.3 g/dl (12.0-16.0); IMMATURE GRANULOCYTE # (AUTO) 0.2 (0.0-1.0); IMMATURE GRANULOCYTE % (AUTO) 0.7 % (0.0-5.0); LYMPHOCYTES # (AUTO) 1.4 K/uL (0.60-3.4); LYMPHOCYTES % (AUTO) 4.6 (10.0-50.0); MEAN CORPUSCULAR HEMOGLOBIN 29.5 pg (27.0-31.0); MEAN CORPUSCULAR VOLUME 95.2 fl (81.0-99.0); MONOCYTES # (AUTO) 1.2 K/uL (0.4-2.0); MONOCYTES % (AUTO) 4.2 (0-10); NEUTROPHILS # (AUTO) 26.7 K/ul (2.0-6.9); NEUTROPHILS % (AUTO) 90.3 % (42.2-75.2); PLATELET COUNT 443 10^3/uL (140-440); RDW COEFFICIENT OF VARIATION 13.6 % (11.6-14.8); RED BLOOD COUNT 4.84 10^6/ul (4.20-5.40); WHITE BLOOD COUNT 29.55 K/ul (4.6-10.2)
[2023-01-24 05:29] LABS: ALANINE AMINOTRANSFERASE 36.4 U/L (0-35); ALBUMIN 4.03 g/dL (3.5-5.0); ALKALINE PHOSPHATASE 129.2 U/L (53-141); ASPARTATE AMINO TRANSFERASE 32.6 U/L (14-36); BILIRUBIN,TOTAL 0.35 mg/dL (0.2-1.3); BLOOD UREA NITROGEN 15.3 mg/dL (7-17); CALCIUM 9.32 mg/dL (8.4-10.2); CARBON DIOXIDE 26.1 mmol/L (22-30.0); CHLORIDE 107.2 mmol/L (98-107); CREATININE 0.78 mg/dL (0.60-1.30); GLUCOSE 157.9 mg/dL (74-106); POTASSIUM 4.47 mmol/L (3.5-5.1); SODIUM 140.3 mmol/L (134.5-145); TOTAL PROTEIN 7.2 g/dL (6.3-8.2)
[2023-01-24] MEDS: PANTOPRAZOLE 40 MG PO SCH (05:41)
[2023-01-24] MEDS: METOPROLOL SUCCINATE 25 MG PO SCH (09:06)
[2023-01-24] MEDS: [UNRECOGNIZED DRUG - REMARK] PO SCH (09:06)
[2023-01-24] MEDS: NON-FORMULARY MEDICATION (Tiotropium-Olodaterol [Stiolto Respimat] 2.5-2.5 mcg/actuation M IH SCH (09:07)
[2023-01-24] MEDS: ATORVASTATIN 20 MG PO SCH (09:07)
[2023-01-24] MEDS: DOXY-100 100 MG in SODIUM CHLORIDE 100ML 100 ML IV SCH ×2 (09:08→20:42)
[2023-01-24] MEDS: LOVENOX SUBCUT SCH (09:30)
--- NOTE | 2023-01-24 11:22 | PCM.PROG ---
Date/Time Seen Date Seen by Provider: 01/24/23 Time Seen by Provider: 08:30 Provider Provider: IRVING SANDERS PA-C, [facility] Chief Complaint Chief Complaint: COPD EXACERBATION Subjective Subjective: Patient is not feeling much better today. Feeling very sob with any exertion. Still requiring O2. No chest pain. Objective Appearance: Positive No Apparent Distress and Alert and Oriented x3 Chest/Lungs: Positive Wheezes (Worse on the right, better air movement today ) Heart: Positive RRR GI/: Positive Soft, Nontender and Bowel Sounds Normal Musculoskeletal: Positive Normal Gait and Station Neurological: Positive Cranial Nerves Intact, Alert and Oriented Vital Signs Vital Signs: Vital Signs: Last 24 Hours 01/23/23 14:00 01/23/23 18:00 01/23/23 12:54 Temperature 96.9 F L 97.2 F L Temperature Source Temporal Artery Scan Temporal Artery Scan Pulse Rate 114 H 111 H Pulse Rate [Apical] Respiratory Rate 21 H 19 Blood Pressure 143/76 H 168/67 H Blood Pressure Mean 98 100 Blood Pressure Location Left Arm Left Arm Blood Pressure Position Supine Sitting O2 Sat by Pulse Oximetry 94 L 93 L Oxygen Delivery Method Nasal Cannula Nasal Cannula Oxygen Flow Rate 2 2 Fraction of Inspired Oxygen (FIO2) Telemetry Type Remote Telemetry Telemetry Monitoring Continues Telemetry Heart Rate 106 H EKG ND Interval 0.16 EKG QRS Interval 0.08 EKG QT Interval Telemetry Strip Reading SINUS TACH 01/23/23 14:00 01/23/23 19:00 01/23/23 19:37 Temperature Temperature Source Pulse Rate Pulse Rate [Apical] Respiratory Rate Blood Pressure Blood Pressure Mean Blood Pressure Location Blood Pressure Position O2 Sat by Pulse Oximetry 93 L 94 L Oxygen Delivery Method Nasal Cannula Nasal Cannula Oxygen Flow Rate 2 2 Fraction of Inspired Oxygen (FIO2) Telemetry Type Remote Telemetry Telemetry Monitoring Continues Telemetry Heart Rate 114 H EKG ND Interval 0.15 EKG QRS Interval 0.09 EKG QT Interval 0.30 Telemetry Strip Reading Sinus rhythm 01/24/23 02:00 01/23/23 20:00 01/23/23 22:00 Temperature 97.5 F L Temperature Source Temporal Artery Scan Pulse Rate 91 106 H Pulse Rate [Apical] 102 H Respiratory Rate 18 22 H 20 Blood Pressure 104/55 L 143/78 H Blood Pressure Mean 71 99 Blood Pressure Location Right Arm Left Arm Blood Pressure Position Supine Sitting O2 Sat by Pulse Oximetry 92 L 92 L Oxygen Delivery Method C-pap Nasal Cannula Nasal Cannula Oxygen Flow Rate 2 2 Fraction of Inspired Oxygen (FIO2) Telemetry Type Telemetry Monitoring Telemetry Heart Rate EKG ND Interval EKG QRS Interval EKG QT Interval Telemetry Strip Reading 01/24/23 01:00 01/24/23 04:45 01/24/23 06:00 Temperature 97.0 F L Temperature Source Oral Pulse Rate 100 Pulse Rate [Apical] Respiratory Rate 26 H Blood Pressure 125/75 Blood Pressure Mean 91 Blood Pressure Location Left Arm Blood Pressure Position Sitting O2 Sat by Pulse Oximetry 92 L Oxygen Delivery Method Nasal Cannula Nasal Cannula Oxygen Flow Rate 2 2 Fraction of Inspired Oxygen (FIO2) 93 Telemetry Type Remote Telemetry Telemetry Monitoring Continues Telemetry Heart Rate 93 EKG ND Interval 0.15 EKG QRS Interval 0.08 EKG QT Interval 0.33 Telemetry Strip Reading SR no ectopy noted 01/24/23 07:00 01/24/23 10:00 01/24/23 10:00 Temperature 96.4 F L Temperature Source Temporal Artery Scan Pulse Rate 98 Pulse Rate [Apical] Respiratory Rate 17 Blood Pressure 138/75 Blood Pressure Mean 96 Blood Pressure Location Left Arm Blood Pressure Position Sitting O2 Sat by Pulse Oximetry 94 L 96 Oxygen Delivery Method Nasal Cannula Nasal Cannula Oxygen Flow Rate 2 2 Fraction of Inspired Oxygen (FIO2) Telemetry Type Remote Telemetry Telemetry Monitoring Continues Telemetry Heart Rate 86 EKG ND Interval 0.16 EKG QRS Interval 0.06 EKG QT Interval Telemetry Strip Reading SR 01/24/23 08:00 Temperature Temperature Source Pulse Rate Pulse Rate [Apical] Respiratory Rate Blood Pressure Blood Pressure Mean Blood Pressure Location Blood Pressure Position O2 Sat by Pulse Oximetry Oxygen Delivery Method Nasal Cannula Oxygen Flow Rate 2 Fraction of Inspired Oxygen (FIO2) Telemetry Type Telemetry Monitoring Telemetry Heart Rate EKG ND Interval EKG QRS Interval EKG QT Interval Telemetry Strip Reading Lab Results Lab Results: Lab Results: Last 24 Hours 01/24/23 01/24/23 01/23/23 05:00 04:45 02:34 WBC 29.55 H D RBC 4.84 Hgb 14.3 Hct 46.1 MCV 95.2 MCH 29.5 MCHC 31.0 L RDW Coeff of Aranza 13.6 Plt Count 443 H Immature Gran % (Auto) 0.7 Neut % (Auto) 90.3 H Lymph % (Auto) 4.6 L Letcher % (Auto) 4.2 Eos % (Auto) 0.0 Baso % (Auto) 0.2 Neut # (Auto) 26.7 H Lymph # (Auto) 1.4 Letcher # (Auto) 1.2 Eos # (Auto) 0.0 Baso # (Auto) 0.1 Immature Gran # (Auto) 0.2 Sodium 140.3 Potassium 4.47 Chloride 107.2 H Carbon Dioxide 26.1 Anion Gap 11.47 BUN 15.3 Creatinine 0.78 Estimated GFR (MDRD) 74.00 BUN/Creatinine Ratio 19.61 Glucose 157.9 H Calcium 9.32 Total Bilirubin 0.35 AST 32.6 ALT 36.4 H Alkaline Phosphatase 129.2 C-Reactive Prot, Quant 40 H Total Protein 7.20 Albumin 4.03 Globulin 3.17 Albumin/Globulin Ratio 1.27 Additional Comments Additional Comments: I have independently reviewed and interpreted the labs/EKGs/imaging ordered during this hospital stay. I have reviewed outside records that are available in our EMR that pertain to medical stay including imaging/notes/labs from previous visits. Active Medications Active Medications: Medications Generic Name Dose Route Start Last Admin Trade Name Freq PRN Reason Stop Dose Admin Acetaminophen 650 mg 01/23/23 08:29 Acetaminophen 325 Mg Tablet PO Q4H PRN Mild Pain Albuterol/Ipratropium 3 ml 01/23/23 10:00 01/24/23 09:45 Ipratropium/Albuterol Vial.Neb NEB 3 ml RTQ4H KIMBERLEY Administration Enoxaparin Sodium 40 mg 01/23/23 09:00 01/24/23 09:30 Enoxaparin Sodium 40 Mg/0.4 Ml Syr SUBCUT 40 mg DAILY KIMBERLEY Administration Doxycycline Hyclate 100 mg/ 100 mls @ 50 mls/hr 01/23/23 09:00 01/24/23 09:08 Sodium Chloride IV 01/26/23 08:59 50 mls/hr Q12HR KIMBERLEY Administration Methylprednisolone Sodium Succinate 40 mg 01/23/23 11:00 01/24/23 04:39 Methylprednisolone Sod Succ/Pf 125 Mg/2 Ml Vial IVP 40 mg Q8HR KIMBERLEY Administration Non-Formulary Medication 40 mg 01/23/23 09:00 01/24/23 09:07 Atorvastatin [Lipitor] PO 40 mg DAILY KIMBERLEY Administration Non-Formulary Medication 90 mcg 01/23/23 09:43 Albuterol IH Q4-6H PRN Wheezing Non-Formulary Medication 1 tab 01/23/23 09:00 01/24/23 09:07 Calcium Carbonate-Vitamin D3 [Calcium 600 + D(3)] PO 1 tab DAILY KIMBERLEY Administration Non-Formulary Medication 180 mg 01/23/23 09:00 01/24/23 09:06 Fexofenadine [Tammi Allergy] PO 180 mg DAILY KIMBERLEY Administration Non-Formulary Medication 25 mg 01/23/23 10:45 01/24/23 09:06 Metoprolol Succinate [Toprol Xl] PO 25 mg DAILY KIMBERLEY Administration Non-Formulary Medication 40 mg 01/23/23 09:00 01/24/23 05:41 Pantoprazole [Protonix] PO 40 mg QDAC KIMBERLEY Administration Non-Formulary Medication 2 puff 01/23/23 10:45 01/24/23 09:07 Tiotropium-Olodaterol [Stiolto Respimat] IH 2 puff DAILY KIMBERLEY Administration Non-Formulary Medication 5,000 mcg 01/23/23 11:15 01/24/23 09:07 Cyanocobalamin (Vitamin B-12) [Vitamin B-12] SL 5,000 mcg DAILY KIMBERLEY Administration Sodium Chloride 1 syr 01/23/23 02:11 0.9% Sodium Chloride 10 Ml Disp.Syrin IVF PRN PRN To flush IV Sodium Chloride 1 syr 01/23/23 21:00 01/24/23 05:41 0.9% Sodium Chloride 10 Ml Disp.Syrin IVF 1 syr Q8HR KIMBERLEY Administration Plan Plan: 1. Acute hypoxic respiratory failure in setting of COPD exacerbation - RT consult, wean O2 when able, nebs q4hrs, solumedrol 40 mg ivp q8hrs and doxy 100 mg bid. Mag 2 gm given yesterday. 2. Acute COPD exacerbation - Plan as above. 3. Hypertension - Continue home meds 4. Hyperlipidemia - Continue home meds 5. GERD - Continue home meds DVT prophylaxis: Lovenox Review Statement Review Statement: I have personally discussed and reviewed the patient's visit/currently labs/imaging/decision making with Dr. Campbell, my supervising attending. Greater that 50 minutes spent with patient, 50% of the time spent with this patient was devoted to counseling and coordination of care.
[2023-01-25] MEDS: DUONEB NEB SCH ×3 (01:06→09:14)
[2023-01-25] MEDS: SOLU-MEDROL 125 MG IVP SCH ×2 (05:10→13:36)
[2023-01-25 05:20] LABS: BASOPHILS % (AUTO) 0.1 % (0.0-3.0); HEMATOCRIT 41.3 % (37.0-47.0); HEMOGLOBIN 13.1 g/dl (12.0-16.0); IMMATURE GRANULOCYTE # (AUTO) 0.3 (0.0-1.0); IMMATURE GRANULOCYTE % (AUTO) 1.2 % (0.0-5.0); LYMPHOCYTES # (AUTO) 1.3 K/uL (0.60-3.4); LYMPHOCYTES % (AUTO) 4.4 (10.0-50.0); MEAN CORPUSCULAR HEMOGLOBIN 29.7 pg (27.0-31.0); MEAN CORPUSCULAR HGB CONC 31.7 (31.8-35.4); MEAN CORPUSCULAR VOLUME 93.7 fl (81.0-99.0); MONOCYTES # (AUTO) 1.3 K/uL (0.4-2.0); MONOCYTES % (AUTO) 4.5 (0-10); NEUTROPHILS # (AUTO) 25.4 K/ul (2.0-6.9); NEUTROPHILS % (AUTO) 89.8 % (42.2-75.2); PLATELET COUNT 447 10^3/uL (140-440); RDW COEFFICIENT OF VARIATION 13.8 % (11.6-14.8); RED BLOOD COUNT 4.41 10^6/ul (4.20-5.40); WHITE BLOOD COUNT 28.29 K/ul (4.6-10.2)
[2023-01-25 05:34] LABS: ALANINE AMINOTRANSFERASE 24.9 U/L (0-35); ALBUMIN 3.64 g/dL (3.5-5.0); ALKALINE PHOSPHATASE 105.1 U/L (53-141); ASPARTATE AMINO TRANSFERASE 29.5 U/L (14-36); BILIRUBIN,TOTAL 0.17 mg/dL (0.2-1.3); BLOOD UREA NITROGEN 20.2 mg/dL (7-17); CALCIUM 8.9 mg/dL (8.4-10.2); CARBON DIOXIDE 27.5 mmol/L (22-30.0); CHLORIDE 109.2 mmol/L (98-107); CREATININE 0.82 mg/dL (0.60-1.30); POTASSIUM 4.2 mmol/L (3.5-5.1); SODIUM 139.7 mmol/L (134.5-145); TOTAL PROTEIN 6.42 g/dL (6.3-8.2)
[2023-01-25] MEDS: PANTOPRAZOLE 40 MG PO SCH (05:47)
[2023-01-25] MEDS: ATORVASTATIN 20 MG PO SCH (08:22)
[2023-01-25] MEDS: METOPROLOL SUCCINATE 25 MG PO SCH (08:23)
[2023-01-25] MEDS: [UNRECOGNIZED DRUG - REMARK] PO SCH (08:23)
[2023-01-25] MEDS: DOXY-100 100 MG in SODIUM CHLORIDE 100ML 100 ML IV SCH (08:25)
[2023-01-25] MEDS: NON-FORMULARY MEDICATION (Tiotropium-Olodaterol [Stiolto Respimat] 2.5-2.5 mcg/actuation M IH SCH (08:25)
[2023-01-25] MEDS: LOVENOX SUBCUT SCH (08:33)
[2023-01-25 10:50] VITALS: BP 125/68; RESP 22; TEMP 97.3
--- NOTE | 2023-01-25 11:09 | DCSUM ---
Admission Date Admission Date: 01/23/23 Discharge Date Discharge Date: 01/25/23 Admission Diagnosis Admission Diagnosis: Acute Hypoxic Respiratory Failure in setting of COPD Exacerbation Discharge Diagnosis Discharge Diagnosis: COPD Exacerbation Hospital Provider Hospital Provider[place] [facility] [place] Primary Care Physician: MADELINE GONZALES Summary of History and Physical Summary of History and Physical: Patient is a 67-year-old female with past medical history of COPD, ELY, hypertension, hyperlipidemia, GERD, mesothelioma who presented to the ER with worsening shortness of breath. She does not normally wear home oxygen. She sometimes uses her 's as needed if she feels she needs it. She uses home inhalers. However she has continued to worsen over the last few days. She has a productive cough. She was noted to be in some respiratory distress in the ER. She was given 2 nebulizers, Solu-Medrol, doxycycline. Chest x-ray negative. Patient was hypoxic at 87% on room air. She was placed on 2 L. 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 On my evaluation this morning the patient states that she feels better since her presentation last night but she still does not feel well. She is sitting at the side of the bed holding onto the table. She states this is helping her breathe. She is still requiring oxygen. She is an every day smoker. She has not had any recent hospitalizations due to lung issues. Hospital Course Subjective: Over course of stay, patient has continued to show oxygen need especially on ambulation. She is baseline of RA but over the last few days she has been wearing her 's oxygen consistently. While in the hospital, she has required 2L at all times and patient would be in distress following ambulation to the bathroom without oxygen. 3 step O2 completed and qualified patient for the need for home O2. She has been receiving scheduled nebulizer treatments as well as her home inhalers. She has also been receiving steroids and antibiotics. Appearance: Pleasant, No Apparent Distress, Alert and Well-appearing HEENT: MMM and Supple CVS: No Murmur and No Rubs Abdomen: Soft and Non-Tender Respiratory: No Accessory Muscle Use Extremities: No Edema Vital Signs: Most Recent Vital Signs Temperature 97.3 F L 01/25/23 10:00 Temperature Source Temporal Artery Scan 01/25/23 10:00 Temperature Source Infrared 01/23/23 02:07 Pulse Rate 86 01/25/23 10:00 Respiratory Rate 22 H 01/25/23 10:00 Blood Pressure 125/68 01/25/23 10:00 Blood Pressure Mean 87 01/25/23 10:00 Blood Pressure Right Arm 123/61 01/23/23 04:31 Blood Pressure Location Right Arm 01/25/23 10:00 Blood Pressure Position Sitting 01/25/23 10:00 O2 Sat by Pulse Oximetry 88 L 01/25/23 10:00 Oxygen Delivery Method Room Air 01/25/23 10:00 Oxygen Flow Rate 2 01/25/23 09:14 Fraction of Inspired Oxygen (FIO2) 93 01/24/23 04:45 Height 5 ft 2 in 01/23/23 04:31 Weight 166 lb 01/23/23 04:31 Telemetry Type Remote Telemetry 01/25/23 07:00 Telemetry Monitoring Continues 01/25/23 07:00 Telemetry Heart Rate 88 01/25/23 07:00 EKG FL Interval 0.13 01/25/23 07:00 EKG QRS Interval 0.06 01/25/23 07:00 EKG QT Interval 0.35 01/25/23 01:00 Telemetry Strip Reading SR 01/25/23 07:00 Lab Results Last 24 Hours: 01/25/23 05:07 WBC 28.29 H RBC 4.41 Hgb 13.1 Hct 41.3 MCV 93.7 MCH 29.7 MCHC 31.7 L RDW Coeff of Aranza 13.8 Plt Count 447 H Immature Gran % (Auto) 1.2 Neut % (Auto) 89.8 H Lymph % (Auto) 4.4 L Ford % (Auto) 4.5 Eos % (Auto) 0.0 Baso % (Auto) 0.1 Neut # (Auto) 25.4 H Lymph # (Auto) 1.3 Ford # (Auto) 1.3 Eos # (Auto) 0.0 Baso # (Auto) 0.0 Immature Gran # (Auto) 0.3 Sodium 139.7 Potassium 4.20 Chloride 109.2 H Carbon Dioxide 27.5 Anion Gap 7.20 BUN 20.2 H Creatinine 0.82 Estimated GFR (MDRD) 70.00 BUN/Creatinine Ratio 24.63 Glucose 150.0 H Calcium 8.90 Total Bilirubin 0.17 L AST 29.5 ALT 24.9 Alkaline Phosphatase 105.1 Total Protein 6.42 Albumin 3.64 Globulin 2.78 Albumin/Globulin Ratio 1.30 Discharge Instructions Discharge Planning: Discharge Planning > 40 minutes If patient is discharged with left ventricular systolic dysfunction: no Discharged with a beta sadie? [] If no, why not? [] Discharged with an kimberlyn/arb? [] If no, why not? [] Complete steroid dose pack as prescribed. Complete course of antibiotics. Continue to use inhalers and nebulizer treatments. Use home oxygen as discussed. Cardiac diet Activity as tolerated. Follow-up with PCP and Pulmonology. Discharge Medications: Medications at Discharge (Home Meds & RX) fexofenadine 180 mg tablet (Tammi Allergy) 180 mg PO DAILY 07/23/14 metoprolol succinate 25 mg tablet,extended release 24 hr (Toprol XL) 25 mg PO DAILY 07/23/14 pantoprazole 40 mg tablet,delayed release (Protonix) 40 mg PO DAILY 08/17/21 albuterol 90 mcg/actuation aerosol inhaler 90 mcg inhalation Q4-6H PRN SOB 10/29/21 atorvastatin 20 mg tablet (Lipitor) 40 mg PO DAILY 10/29/21 calcium carbonate 600 mg-vitamin D3 10 mcg (400 unit) tablet (Calcium 600 + D(3)) 1 tab PO DAILY 10/29/21 ipratropium 0.5 mg-albuterol 3 mg (2.5 mg base)/3 mL nebulization soln 3 ml inhalation Q4-6H PRN sob 10/29/21 tiotropium 2.5 mcg-olodaterol 2.5 mcg/actuation mist for inhalation (Stiolto Respimat) 2 puff inhalation DAILY 10/29/21 ibuprofen 600 mg tablet 600 mg PO Q6H PRN pain #30 tabs 05/15/22 cyanocobalamin (vitamin B-12) 5,000 mcg sublingual tablet 5,000 mcg sublingual DAILY 01/23/23 Discharge Plan Discharge Activity Restrictions/Additional Instructions: You are being discharged home today. New Medications: Medrol Dose Taye (see directions) Doxycycline 100 mg by mouth twice a day for 7 days Continue to use inhalers and nebulizer treatments. Use home oxygen as discussed. Cardiac diet Activity as tolerated. YOU HAVE A FOLLOW UP APPOINTMENT WITH DR. JONES AT [facility] ON WednesdayFebruary AT 11AM. SHOULD YOU HAVE ANY QUESTIONS OR NEED TO RESCHEDULE YOU CAN CONTACT THEIR OFFICE AT [phone] Instructions: COPD (Chronic Obstructive Pulmonary Disease) (GEN) Patient Disposition: HOME SELF-CARE Prescriptions: New methylprednisolone [Medrol (Taye)] 4 mg tablets,dose pack See Rx Instructions .ROUTE .COMPLEX Qty: 21 0RF Rx Instructions: orally per package directions doxycycline hyclate 100 mg capsule 100 mg PO BID Qty: 14 0RF (DME) NEBULIZER Misc See Rx Instructions .ROUTE Qty: 1 0RF Rx Instructions: As directed Continued fexofenadine [Tammi Allergy] 180 MG tablet 180 mg PO DAILY metoprolol succinate [Toprol XL] 25 MG tablet extended release 24 hr 25 mg PO DAILY atorvastatin [Lipitor] 20 mg Tablet 40 mg PO DAILY Stiolto Respimat 2.5-2.5 mcg/actuation Mist 2 puff INHALATION DAILY albuterol 90 mcg/actuation Aerosol 90 mcg INHALATION Q4-6H PRN (Reason: SOB) ipratropium-albuterol 0.5 mg-3 mg(2.5 mg base)/3 mL Solution For Nebulization 3 ml INHALATION Q4-6H PRN (Reason: sob) calcium carbonate-vitamin D3 [Calcium 600 + D(3)] 600 mg-10 mcg (400 unit) Tablet 1 tab PO DAILY pantoprazole [Protonix] 40 mg Tablet,Delayed Release (Dr/Ec) 40 mg PO DAILY ibuprofen 600 mg tablet 600 mg PO Q6H PRN (Reason: pain) Qty: 30 0RF cyanocobalamin (vitamin B-12) 5,000 mcg tablet, sublingual 5,000 mcg sublingual DAILY Did you review [place] [employer] for ALL controlled substances?: No Discussed opioids are addictive and Narcan is available by prescription or from pharmacy.: No Condition: Fair
== END 2023-01-25 14:15 | disposition home or self-care (01) ==
LOC: MEDSURG B 02:04 → ED 02:04 → MEDSURG B 04:40
PROVIDERS: ADMIT Hospitalist; ATTEND Nurse Practitioner Family
DX: M19.90 Unspecified osteoarthritis, unspecified site; Z20.822 Contact with and (suspected) exposure to COVID-19; F17.210 Nicotine dependence, cigarettes, uncomplicated; Z85.9 Personal history of malignant neoplasm, unspecified; J44.1 Chronic obstructive pulmonary disease with (acute) exacerbation; K21.9 Gastro-esophageal reflux disease without esophagitis; E78.5 Hyperlipidemia, unspecified; J96.01 Acute respiratory failure with hypoxia; I10 Essential (primary) hypertension

== ENCOUNTER 2023-08-23 13:59 | Observation (INO) ==
[2023-08-23] MEDS ORDERED: SODIUM CHLORIDE 1,000 ML IV ONE (14:09)
[2023-08-23] MEDS ORDERED: ZOFRAN 4 MG/2 ML IVP ONE (14:09)
[2023-08-23] MEDS ORDERED: DILAUDID 1 MG/ML SYRINGE IVP ONE (14:09)
[2023-08-23 14:10] VITALS: BMI 25.9
--- NOTE | 2023-08-23 14:13 | ED.PDOC ---
General ED Provider: Dr. ROMIE UGARTE MD Chief Complaint: Abdominal Pain Stated Complaint: Abdominal pain 68-year-old female presents emergency department for evaluation of lower abdominal pain. Describes it as an intense cramping pain across her entire lower abdomen. Feels nauseated without vomiting. Has not having diarrhea for about a week. Denies any urinary discomfort. No pain that goes into her back. Time Seen by Provider: 08/23/23 14:06 Mode of Arrival: Walk-In Information Source: Patient Exam Limitations: No limitations Primary Care Provider: MADELINE GONZALES Nursing and Triage Documentation Reviewed and Agree: Yes What is Opioid Naive?: *Opioid Naive implies the patient is not already taking opioids or not chronically receiving opioids on a daily basis. *PRN dosing is not "usually" associated with tolerance. *Patients are at higher risk of over-sedation and aspiration. What is Opioid Tolerant?: *Opioid Tolerance implies less than the expected response to an opioid. *Acquired tolerance is defined by the patient taking 60mg of oral morphine daily (or equianalgesic dose of another opioid) for 1 week or more. *Often associated with chronic pain. *May take more than usual dose to achieve desired pain control. Review of Systems Review Of Systems Constitutional: Reports No symptoms and Fever GI: Reports Abdominal pain, Diarrhea and Nausea All Other Systems: Reviewed and Negative [facility] Medical History (Updated 08/23/23 @ 15:38 by ROMIE UGARTE MD) Seasonal allergies J30.2 - Other seasonal allergic rhinitis (ICD-10) Elevated cholesterol E78.00 - Pure hypercholesterolemia, unspecified (ICD-10) Family History Mother Elevated cholesterol Seasonal allergies Hypertension FATHER Alcoholism SISTER Elevated cholesterol Blood disease Hypertension BROTHER Elevated cholesterol Alcoholism Blood disease Hypertension Other Cancer Obstetric anesthesia problems Social History Smoking and tobacco status: Current every day smoker Alcohol intake: never Substance use type: does not use Housing: house Seatbelt use: always Drives intoxicated or rides with intoxicated patrol driver: No Water heater temperature set < 120 degrees: Yes Working smoke detector in home: Yes Fire extinguisher in home: Yes Carbon monoxide detector in home: Yes Firearms in home: Yes Surgical History Status post tonsillectomy Z90.89 - Acquired absence of other organs (ICD-10) Status post hysterectomy Z90.710 - Acquired absence of both cervix and uterus (ICD-10) Status post cholecystectomy Z90.49 - Acquired absence of other specified parts of digestive tract (ICD- 10) Status post appendectomy Z90.49 - Acquired absence of other specified parts of digestive tract (ICD- 10) Female Reproductive History Menstrual Hx Hysterectomy: Yes Hx Tubal Ligation: No Physical Exam Physical Exam Appearance: Reports Ill-appearing Ill-appearing: None Pain Distress: Mild Eyes: Reports EOMI ENT: Reports Oropharynx normal Neck: Supple Respiratory: Reports Airway patent and Breath sounds clear Cardiovascular: Reports RRR GI/: Reports Soft and Tender (suprapubic, LLQ) Musculoskeletal: Reports Normal strength and Other (pain when drawing R leg into abdomen, not with L leg) Skin: Reports Dry Neurological: Reports Cranial nerves intact and Alert Psychiatric: Reports Affect appropriate Course Course 08/23/23 14:18 08/23/23 14:18 Orders, Labs, Meds: Lab Review 08/23/23 08/23/23 14:10 14:18 WBC 12.88 H RBC 4.54 Hgb 13.3 Hct 42.3 MCV 93.2 MCH 29.3 MCHC 31.4 L RDW Coeff of Aranza 13.7 Plt Count 454 H Immature Gran % (Auto) 1.0 Neut % (Auto) 73.1 Lymph % (Auto) 14.8 [place] % (Auto) 8.6 Eos % (Auto) 1.9 Baso % (Auto) 0.6 Neut # (Auto) 9.4 H Lymph # (Auto) 1.9 [place] # (Auto) 1.1 Eos # (Auto) 0.2 Baso # (Auto) 0.1 Immature Gran # (Auto) 0.1 Sodium 138.1 Potassium 3.58 Chloride 102.3 Carbon Dioxide 31.9 H Anion Gap 7.48 BUN 10.7 Creatinine 0.92 Estimated GFR (MDRD) 61.00 BUN/Creatinine Ratio 11.63 Glucose 94.8 Lactic Acid 1.13 Calcium 9.28 Total Bilirubin 0.59 AST 37.3 H ALT 18.8 Alkaline Phosphatase 97.0 Total Protein 7.54 Albumin 4.04 Globulin 3.50 Albumin/Globulin Ratio 1.15 Procalcitonin < 0.05 Urine Color Yellow Urine Clarity Slightly Urine pH 5.5 Ur Specific [place] 1.025 Urine Protein Negative Urine Glucose (UA) Negative Urine Ketones Negative Urine Blood 2+ H Urine Nitrite Positive H Urine Bilirubin Negative Urine Urobilinogen 0.2 Ur Leukocyte Esterase Trace H Urine Microscopic WBC 5-10 Ur Squamous Epith Cells 2-5 Urine Bacteria 4+ Hyaline Casts 0-2 Orders Category Date Time Status NPO REMINDER: IMAGING ONCE CARE 08/23/23 14:09 Completed ED IV/MEDIPORT/POWERPORT .ONCE EMERGENCY 08/23/23 14:08 Active CBC W/ AUTO DIFF Stat LAB 08/23/23 14:18 Completed CMP [COMPREHENSIVE METABOLIC PANEL] Stat LAB 08/23/23 14:18 Completed LACTIC ACID Stat LAB 08/23/23 14:18 Completed PROCALCITONIN Stat LAB 08/23/23 14:18 Completed UA [URINALYSIS C & S IF INDICATED] Stat LAB 08/23/23 14:10 Completed URINE CULTURE Stat LAB 08/23/23 14:10 Received 0.9 % Sodium Chloride [Saline Flush] Meds 08/23/23 14:08 Active 1 syr IVF PRN PRN Hydromorphone HCl [Dilaudid 1 mg/ml Syringe] Meds 08/23/23 14:09 Discontinued 0.5 mg IVP ONCE ONE Ipratropium/Albuterol Neb [Duoneb] Meds 08/23/23 14:43 Discontinued 3 ml NEB ONCE ONE Ondansetron HCl/Pf [Zofran 4 mg/2 ml] Meds 08/23/23 14:09 Discontinued 4 mg IVP ONCE ONE Piperacillin Sodium/Tazobactam [Zosyn 4.5 gm] 4.5 gm Meds 08/23/23 15:35 Discontinued 0.9 % Sodium Chloride [Sodium Chloride 100Ml] 100 ml IV ONCE Sodium Chloride 0.9% [Sodium Chloride] 1,000 ml Meds 08/23/23 14:[address] ABDOMEN/PELVIS W CONTRAST Stat RADS 08/23/23 14:08 Completed Medications Generic Name Dose Route Start Last Admin Trade Name Freq PRN Reason Stop Dose Admin Sodium Chloride 1 syr 08/23/23 14:08 0.9% Sodium Chloride 10 Ml Disp.Syrin IVF PRN PRN To flush IV Discontinued Medications Generic Name Dose Route Start Last Admin Trade Name Freq PRN Reason Stop Dose Admin Albuterol/Ipratropium 3 ml 08/23/23 14:43 08/23/23 15:27 Ipratropium/Albuterol Vial.Neb NEB 08/23/23 14:44 3 ml ONCE ONE Administration Hydromorphone HCl 0.5 mg 08/23/23 14:09 08/23/23 14:36 Hydromorphone Hcl 1 Mg/Ml Syringe IVP 08/23/23 14:10 0.5 mg ONCE ONE Administration Sodium Chloride 1,000 mls @ 1,000 mls/hr 08/23/23 14:09 08/23/23 14:38 Sodium Chloride IV 08/23/23 15:08 1,000 mls/hr BOLUS ONE Administration Piperacillin Sod/Tazobactam 100 mls @ 200 mls/hr 08/23/23 15:35 08/23/23 15:48 Sod 4.5 gm/ Sodium Chloride IV 08/23/23 16:04 200 mls/hr ONCE ONE Administration Ondansetron HCl 4 mg 08/23/23 14:09 08/23/23 14:35 Ondansetron Hcl/Pf 4 Mg/2 Ml Sdv IVP 08/23/23 14:10 4 mg ONCE ONE Administration Differential diagnosis includes urinary tract infection, ureterolithiasis, pyelonephritis, diverticulitis, colitis, mesenteric ischemia Procalcitonin lactic acid unremarkable. Patient does have mild leukocytosis. Urinalysis shows 4+ bacteria, leukocyte Estrace and nitrite positive pyuria. CT scan has not been read by radiology but appears to have sigmoid diverticulitis. A dose of Zosyn has been ordered. 1. Abnormal exam. Acute mid to distal sigmoid diverticulitis. No focal fluid collection or abscess identified. No evidence of free air/perforation. 2. There is contiguity between the diseased colon and the posterior dome of the urinary bladder with gas within the bladder lumen, the possibility of a colovesicular fistula is not excluded and clinical correlation and clinical follow-up of this finding is advised. 3. High-grade stenosis celiac origin. Diffuse atheromatous calcifications of the abdominal aorta. Other ancillary findings as above. All CT scans are performed using dose optimization techniques as appropriate to the performed exam and include at least one of the following: Automated exposure control, adjustment of the mA and/or kV according to size, and the use of iterative reconstruction technique. Electronically Signed By: Daquan Ojeda M.D. Signing Date: 2023-08-23 15:34 3:46 PM Attempted to contact [facility] for transfer for surgical subspecialty is not available at our facility. Patient needs further evaluation for the possible colovesicular fistula. Patient and her have been updated on the findings and the current plan. She has a event staff member and a urologist at [facility]. 3:50pm [facility] at capacity 3:57pm [facility] at capacity 4:02pm [facility] at capacity 4:09pm Case discussed with on-call general surgery at [facility] [place][note 2] in [place]. The management of the fistula is outpatient. She needs treatment for the diverticulitis with antibiotics and then she can follow as an outpatient for the fistula. There is no emergent treatment for that. Vital Signs: Temp Pulse Resp BP Pulse Ox 08/23/23 14:01 99.4 F 105 H 18 169/48 H 94 L Discharge Plan Discharge Patient Disposition: ADMITTED INPATIENT Discharge Problem: Diverticulitis, Acute UTI Prescriptions: No Action fexofenadine [Tammi Allergy] 180 MG tablet 180 mg PO DAILY metoprolol succinate [Toprol XL] 25 MG tablet extended release 24 hr 25 mg PO DAILY atorvastatin [Lipitor] 20 mg Tablet 40 mg PO DAILY Stiolto Respimat 2.5-2.5 mcg/actuation Mist 2 puff INHALATION DAILY albuterol 90 mcg/actuation Aerosol 90 mcg INHALATION Q4-6H PRN (Reason: SOB) ipratropium-albuterol 0.5 mg-3 mg(2.5 mg base)/3 mL Solution For Nebulization 3 ml INHALATION Q4-6H PRN (Reason: sob) calcium carbonate-vitamin D3 [Calcium 600 + D(3)] 600 mg-10 mcg (400 unit) Tablet 1 tab PO DAILY pantoprazole [Protonix] 40 mg Tablet,Delayed Release (Dr/Ec) 40 mg PO DAILY ibuprofen 600 mg tablet 600 mg PO Q6H PRN (Reason: pain) Qty: 30 0RF cyanocobalamin (vitamin B-12) 5,000 mcg tablet, sublingual 5,000 mcg sublingual DAILY methylprednisolone [Medrol (Taye)] 4 mg tablets,dose pack See Rx Instructions .ROUTE .COMPLEX Qty: 21 0RF Rx Instructions: orally per package directions doxycycline hyclate 100 mg capsule 100 mg PO BID Qty: 14 0RF (DME) NEBULIZER Misc See Rx Instructions .ROUTE Qty: 1 0RF Rx Instructions: As directed fluconazole [Diflucan] 150 mg tablet 150 mg PO Q3D Qty: 2 0RF Did you review [place] [employer] for ALL controlled substances?: Not Applicable ED Provider: ROMIE UGARTE Physician Progress Note: []
[2023-08-23 14:22] LABS: BASOPHILS # (AUTO) 0.1 K/uL (0-0.2); BASOPHILS % (AUTO) 0.6 % (0.0-3.0); EOSINOPHILS # (AUTO) 0.2 K/ul (0.0-0.7); EOSINOPHILS % (AUTO) 1.9 % (0.0-7.0); HEMATOCRIT 42.3 % (37.0-47.0); HEMOGLOBIN 13.3 g/dl (12.0-16.0); IMMATURE GRANULOCYTE # (AUTO) 0.1 (0.0-1.0); LYMPHOCYTES # (AUTO) 1.9 K/uL (0.60-3.4); LYMPHOCYTES % (AUTO) 14.8 (10.0-50.0); MEAN CORPUSCULAR HEMOGLOBIN 29.3 pg (27.0-31.0); MEAN CORPUSCULAR HGB CONC 31.4 (31.8-35.4); MEAN CORPUSCULAR VOLUME 93.2 fl (81.0-99.0); MONOCYTES # (AUTO) 1.1 K/uL (0.4-2.0); MONOCYTES % (AUTO) 8.6 (0-10); NEUTROPHILS # (AUTO) 9.4 K/ul (2.0-6.9); NEUTROPHILS % (AUTO) 73.1 % (42.2-75.2); PLATELET COUNT 454 10^3/uL (140-440); RDW COEFFICIENT OF VARIATION 13.7 % (11.6-14.8); RED BLOOD COUNT 4.54 10^6/ul (4.20-5.40); WHITE BLOOD COUNT 12.88 K/ul (4.6-10.2)
[2023-08-23 14:32] LABS: BILIRUBIN,URINE Negative (NEGATIVE); CLARITY,URINE Slightly (CLEAR); COLOR,URINE Yellow (YELLOW); GLUCOSE, URINE (UA) Negative (NEGATIVE); KETONES,URINE Negative (NEGATIVE); LEUKOCYTE ESTERASE ,URINE Trace (NEGATIVE); NITRITE,URINE Positive (NEGATIVE); PH,URINE 5.5 (5-9); PROTEIN,URINE Negative (NEGATIVE); URINE, BLOOD 2+ (NEGATIVE); UROBILINOGEN,URINE 0.2 (0.2)
[2023-08-23 14:37] LABS: ALANINE AMINOTRANSFERASE 18.8 U/L (0-35); ALBUMIN 4.04 g/dL (3.5-5.0); ASPARTATE AMINO TRANSFERASE 37.3 U/L (14-36); BILIRUBIN,TOTAL 0.59 mg/dL (0.2-1.3); BLOOD UREA NITROGEN 10.7 mg/dL (7-17); CALCIUM 9.28 mg/dL (8.4-10.2); CARBON DIOXIDE 31.9 mmol/L (22-30.0); CHLORIDE 102.3 mmol/L (98-107); CREATININE 0.92 mg/dL (0.60-1.30); GLUCOSE 94.8 mg/dL (74-106); POTASSIUM 3.58 mmol/L (3.5-5.1); SODIUM 138.1 mmol/L (134.5-145); TOTAL PROTEIN 7.54 g/dL (6.3-8.2)
[2023-08-23 14:43] LABS: BACTERIA,URINE 4+ (NOT PRESENT)
[2023-08-23] MEDS ORDERED: DUONEB NEB ONE (14:43)
[2023-08-23 14:44] LABS: HYALINE CASTS, URINE 0-2 (NOT PRESENT)
[2023-08-23] MEDS ORDERED: ZOSYN 4.5 GM 4.5 GM in SODIUM CHLORIDE 100ML 100 ML IV ONE (15:35)
--- NOTE | 2023-08-23 15:40 | CT ---
EXAM: CT ABDOMEN AND PELVIS WITH CONTRAST HISTORY: Generalized abdominal pain. TECHNIQUE: Contiguous axial tomographic sections were obtained from the dome of the diaphragm through the ischial tuberosities following the administration of iodinated intravenous contrast. Coronal an d sagittal reformats were then performed. Automatic exposure control was utilized for dose reduction technique. COMPARISON: 01/28/2018 FINDINGS: There is a bleb at the right lung base measuring 5 x 2.9 cm. No focal infiltrate or effusion at the bases. No hepatic masses are detected. There is mild intrahepatic biliary ductal prominence, probably withi n normal limits status post cholecystectomy. Portal veins are patent. Negative for portal venous ga s. The pancreas, spleen, and adrenals are unremarkable. Kidneys are unremarkable. Atheromatous aor ta without aneurysm. There is high-grade stenosis at the celiac origin. Atheromatous calcifications about the origin. The SMA appears intact. No pathologic adenopathy. No bowel obstruction. Appendix not visualized, suspect prior appendectomy with clips adjacent to the tip of the cecum. There is descending and sigmoid colonic diverticulosis present. There is moderat e to severe wall thickening involving a segment of the mid to distal sigmoid measuring approximately 12 cm in length. No evidence of a focal abscess. Moderate adjacent stranding of the fat. No eviden ce of perforation. The urinary bladder dome posteriorly abuts a portion of the affected disease colon. There is gas not ed within the bladder lumen. Status post hysterectomy. No gross adnexal masses. No acute bony abnormalities. Severe degenerative disc disease L4-5. IMPRESSION: 1. Abnormal exam. Acute mid to distal sigmoid diverticulitis. No focal fluid collection or abscess identified. No evidence of free air/perforation. 2. There is contiguity between the diseased colon and the posterior dome of the urinary bladder with gas within the bladder lumen, the possibility of a colovesicular fistula is not excluded and clinical correlation and clinical follow-up of this finding is advised. 3. High-grade stenosis celiac origin. Diffuse atheromatous calcifications of the abdominal aorta. O ther ancillary findings as above. All CT scans are performed using dose optimization techniques as appropriate to the performed exam an d include at least one of the following: Automated exposure control, adjustment of the mA and/or kV according t o size, and the use of iterative reconstruction technique.
[2023-08-23 16:44] LABS: SARS COV-2 RNA RAPID NAAT NEGATIVE (NEGATIVE)
[2023-08-23] MEDS ORDERED: ZOFRAN 4 MG/2 ML IVP PRN (17:33)
[2023-08-23] MEDS ORDERED: TYLENOL PO PRN (17:33)
[2023-08-23] MEDS ORDERED: REGLAN IVP PRN (17:33)
[2023-08-23] MEDS ORDERED: TORADOL IVP PRN (18:49)
[2023-08-23] MEDS ORDERED: DUONEB NEB PRN (19:05)
[2023-08-23] MEDS ORDERED: SUBLIMAZE IVP PRN (19:07)
[2023-08-23] MEDS: ZOSYN 3.375 GM 3.375 GM in SODIUM CHLORIDE 100ML 100 ML IV SCH (19:46)
[2023-08-23] MEDS: SODIUM CHLORIDE 1,000 ML IV SCH (19:46)
[2023-08-23] MEDS: PROTONIX IVP SCH (19:47)
[2023-08-23] MEDS ORDERED: LIPITOR PO SCH (21:00)
[2023-08-23] MEDS ORDERED: TOPROL XL PO SCH (21:00)
[2023-08-24] MEDS: ZOSYN 3.375 GM 3.375 GM in SODIUM CHLORIDE 100ML 100 ML IV SCH ×3 (01:13→11:24)
[2023-08-24] MEDS ORDERED: DUONEB NEB PRN (05:03)
[2023-08-24 05:18] LABS: BASOPHILS # (AUTO) 0.1 K/uL (0-0.2); BASOPHILS % (AUTO) 0.8 % (0.0-3.0); EOSINOPHILS # (AUTO) 0.3 K/ul (0.0-0.7); EOSINOPHILS % (AUTO) 3.9 % (0.0-7.0); HEMATOCRIT 34.1 % (37.0-47.0); HEMOGLOBIN 10.5 g/dl (12.0-16.0); IMMATURE GRANULOCYTE # (AUTO) 0.1 (0.0-1.0); IMMATURE GRANULOCYTE % (AUTO) 1.1 % (0.0-5.0); LYMPHOCYTES % (AUTO) 23.5 (10.0-50.0); MEAN CORPUSCULAR HEMOGLOBIN 29.1 pg (27.0-31.0); MEAN CORPUSCULAR HGB CONC 30.8 (31.8-35.4); MEAN CORPUSCULAR VOLUME 94.5 fl (81.0-99.0); MONOCYTES % (AUTO) 11.8 (0-10); NEUTROPHILS # (AUTO) 4.9 K/ul (2.0-6.9); NEUTROPHILS % (AUTO) 58.9 % (42.2-75.2); PLATELET COUNT 354 10^3/uL (140-440); RDW COEFFICIENT OF VARIATION 13.6 % (11.6-14.8); RED BLOOD COUNT 3.61 10^6/ul (4.20-5.40)
[2023-08-24 05:46] LABS: ALBUMIN 2.6 g/dL (3.5-5.0); BILIRUBIN,TOTAL 0.7 mg/dL (0.2-1.3); CALCIUM 7.9 mg/dL (8.4-10.2); POTASSIUM 3.5 mmol/L (3.5-5.1); TOTAL PROTEIN 5.1 g/dL (6.3-8.2)
[2023-08-24 06:02] VITALS: RESP 20
[2023-08-24] MEDS: SODIUM CHLORIDE 1,000 ML IV SCH (08:38)
[2023-08-24] MEDS ORDERED: CALCIUM 500 + VIT D 5 MCG (200 IU) TABLET PO SCH (09:00)
[2023-08-24] MEDS ORDERED: LIPITOR PO SCH (09:00)
[2023-08-24] MEDS ORDERED: ANORO ELLIPTA 62.5-25 MCG INH IH SCH (09:00)
[2023-08-24] MEDS ORDERED: TOPROL XL PO SCH (09:00)
[2023-08-24] MEDS ORDERED: [UNRECOGNIZED DRUG - REMARK] PO SCH (09:00)
[2023-08-24] MEDS ORDERED: NON-FORMULARY MEDICATION (Tiotropium-Olodaterol [Stiolto Respimat] 2.5-2.5 mcg/actuation M IH SCH (09:00)
[2023-08-24] MEDS ORDERED: CLARITIN PO SCH (09:00)
[2023-08-24] MEDS: PROTONIX IVP SCH (09:17)
[2023-08-24 10:46] VITALS: BP 102/57; TEMP 98
[2023-08-24 11:31] VITALS: PULSE 70
--- NOTE | 2023-08-24 11:33 | PCM.SS ---
Provider Provider: [facility] Admission Date Admission Date: 08/23/23 Discharge Date Discharge Date: 08/24/23 Primary Care Physician Primary Care Physician: MADELINE GONZALES Chief Complaint Reason For Visit: DIVERTICULITIS History of Present Illness History of Present Illness: Admitted 08/23/23 16:33, this 68 year old /WHITE/F presented to the ER with complaints of abdominal pain, diarrhea, and fever. Patient states the diarrhea started last week. Then the belly pain began. Reports that the pain feels like a cramping. Has been nauseated but no vomiting. Minimal appetite. Has also had fever occasionally. States she has had diverticulitis on colonoscopies but never had any pain or problems associated like this. Denies any blood in her stool. Denies any urinary symptoms other than some episodes of incontinence when sneezing or coughing which isn't new for her. Has pmh of bladder sling. Follows with Dr. José GI at [facility] for colonoscopies. 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 General surgeon at [facility] did not recommend urgent transfer for surgery. Recommended treatment of diverticulitis and UTI and outpatient follow-up after resolution of infections. Patient was admitted to med/surg for observation. [facility] Medical History Seasonal allergies J30.2 - Other seasonal allergic rhinitis (ICD-10) Elevated cholesterol E78.00 - Pure hypercholesterolemia, unspecified (ICD-10) Surgical History Status post tonsillectomy Z90.89 - Acquired absence of other organs (ICD-10) Status post hysterectomy Z90.710 - Acquired absence of both cervix and uterus (ICD-10) Status post cholecystectomy Z90.49 - Acquired absence of other specified parts of digestive tract (ICD- 10) Status post appendectomy Z90.49 - Acquired absence of other specified parts of digestive tract (ICD- 10) Family History Mother Elevated cholesterol Seasonal allergies Hypertension FATHER Alcoholism SISTER Elevated cholesterol Blood disease Hypertension BROTHER Elevated cholesterol Alcoholism Blood disease Hypertension Other Cancer Obstetric anesthesia problems Social History Smoking and tobacco status: Current every day smoker Alcohol intake: never Substance use type: does not use Housing: house Seatbelt use: always Drives intoxicated or rides with intoxicated stud driver: No Water heater temperature set < 120 degrees: Yes Working smoke detector in home: Yes Fire extinguisher in home: Yes Carbon monoxide detector in home: Yes Firearms in home: Yes Medications Mecications: Medications at Discharge (Home Meds & RX) fexofenadine 180 mg tablet (Tammi Allergy) 180 mg PO DAILY 07/23/14 metoprolol succinate 25 mg tablet,extended release 24 hr (Toprol XL) 25 mg PO BEDTIME 07/23/14 pantoprazole 40 mg tablet,delayed release (Protonix) 40 mg PO DAILY 08/17/21 albuterol 90 mcg/actuation aerosol inhaler 90 mcg inhalation Q4-6H PRN SOB 10/29/21 atorvastatin 20 mg tablet (Lipitor) 40 mg PO BEDTIME 10/29/21 calcium carbonate 600 mg-vitamin D3 10 mcg (400 unit) tablet (Calcium 600 + D(3)) 1 tab PO DAILY 10/29/21 ipratropium 0.5 mg-albuterol 3 mg (2.5 mg base)/3 mL nebulization soln 3 ml inhalation Q4-6H PRN sob 10/29/21 tiotropium 2.5 mcg-olodaterol 2.5 mcg/actuation mist for inhalation (Stiolto Respimat) 2 puff inhalation DAILY 10/29/21 ibuprofen 600 mg tablet 600 mg PO Q6H PRN pain #30 tabs 05/15/22 cyanocobalamin (vitamin B-12) 5,000 mcg sublingual tablet 3,000 mcg sublingual DAILY 01/23/23 C.NEBULIZER (NEBULIZER) #1 ea 01/25/23 Allergies Allergies Allergy/AdvReac Type Severity Reaction Status Date / Time clavulanic acid AdvReac Unknown Verified 08/23/23 14:28 [From Augmentin] morphine AdvReac Unknown Verified 08/23/23 14:28 pravastatin [From Pravachol] AdvReac Unknown Verified 08/23/23 14:28 risedronate sodium AdvReac Unknown Verified 01/15/24 14:28 [From Actonel] Review of Systems Constitutional: Reports Fever and Loss of appetite Head: Reports Normocephalic and Atraumatic Eyes: Reports No symptoms Ears: Reports No symptoms Nose: Reports No symptoms Mouth: Reports No symptoms Throat: Reports No symptoms Cardiovascular: Reports No symptoms Respiratory: Reports No symptoms Gastrointestinal: Reports Nausea and Diarrhea Genitourinary: Reports No Symptoms Musculoskeletal: Reports No symptoms Endocrine: Reports No symptoms Hematology: Reports No symptoms Immunology: Reports No symptoms Neurological: Reports No symptoms Psychiatric: Reports No symptoms Physical Examination Appearance: Positive No Apparent Distress and Alert and Oriented x3 Head: Positive Normocephalic and Atraumatic Eyes: Positive GIOVANNY ENT: Positive Ears Normal, Nares Normal and Oropharynx Normal Neck: Positive Supple, Non-Tender, No Masses and No Lynphadenopathy Heart: Positive RRR Respiratory: Positive Airway patent, Breath Sounds Clear, Bilaterally, Breath Sounds Equal and Respirations Nonlabored GI/: Positive Soft, Nontender and Bowel sounds normal Extremities: Positive Pedal Pulses Palpable Bilaterally Neurological: Positive Normal Gait, Alert and Oriented Psychiatric: Positive Normal Judgement and Normal Insight Vital Signs (Last 4 Hours) Vital Signs Last 4 Hours: Vital Signs: Last 4 Hours 08/24/23 08:00 08/24/23 08:00 08/24/23 08:49 Temperature Temperature Source Pulse Rate Pulse Rate [Apical] 70 Respiratory Rate 18 Blood Pressure Blood Pressure Mean Blood Pressure Location Blood Pressure Position O2 Sat by Pulse Oximetry Oxygen Delivery Method Room Air Nasal Cannula Room Air Fraction of Inspired Oxygen (FIO2) 2 08/24/23 09:48 08/24/23 10:00 08/24/23 10:00 Temperature 98.0 F Temperature Source Oral Pulse Rate 78 Pulse Rate [Apical] Respiratory Rate 20 Blood Pressure 102/57 L Blood Pressure Mean 72 Blood Pressure Location Left Arm Blood Pressure Position Sitting O2 Sat by Pulse Oximetry 93 L 97 Oxygen Delivery Method Room Air Room Air Room Air Fraction of Inspired Oxygen (FIO2) Labs This Visit Labs This Visit: Labs This Visit 08/23/23 08/23/23 08/23/23 14:10 14:18 16:17 WBC 12.88 H RBC 4.54 Hgb 13.3 Hct 42.3 MCV 93.2 MCH 29.3 MCHC 31.4 L RDW Coeff of Aranza 13.7 Plt Count 454 H Immature Gran % (Auto) 1.0 Neut % (Auto) 73.1 Lymph % (Auto) 14.8 [place] % (Auto) 8.6 Eos % (Auto) 1.9 Baso % (Auto) 0.6 Neut # (Auto) 9.4 H Lymph # (Auto) 1.9 [place] # (Auto) 1.1 Eos # (Auto) 0.2 Baso # (Auto) 0.1 Immature Gran # (Auto) 0.1 Sodium 138.1 Potassium 3.58 Chloride 102.3 Carbon Dioxide 31.9 H Anion Gap 7.48 BUN 10.7 Creatinine 0.92 Estimated GFR (MDRD) 61.00 BUN/Creatinine Ratio 11.63 Glucose 94.8 Lactic Acid 1.13 Calcium 9.28 Total Bilirubin 0.59 AST 37.3 H ALT 18.8 Alkaline Phosphatase 97.0 Total Protein 7.54 Albumin 4.04 Globulin 3.50 Albumin/Globulin Ratio 1.15 Procalcitonin < 0.05 Urine Color Yellow Urine Clarity Slightly Urine pH 5.5 Ur Specific [place] 1.025 Urine Protein Negative Urine Glucose (UA) Negative Urine Ketones Negative Urine Blood 2+ H Urine Nitrite Positive H Urine Bilirubin Negative Urine Urobilinogen 0.2 Ur Leukocyte Esterase Trace H Urine Microscopic WBC 5-10 Ur Squamous Epith Cells 2-5 Urine Bacteria 4+ Hyaline Casts 0-2 SARS CoV-2 RNA Rapid ELANA Negative 08/24/23 05:11 WBC 8.30 RBC 3.61 L Hgb 10.5 L Hct 34.1 L D MCV 94.5 MCH 29.1 MCHC 30.8 L RDW Coeff of [place] 13.6 Plt Count 354 Immature Gran % (Auto) 1.1 Neut % (Auto) 58.9 Lymph % (Auto) 23.5 [place] % (Auto) 11.8 H Eos % (Auto) 3.9 Baso % (Auto) 0.8 Neut # (Auto) 4.9 Lymph # (Auto) 2.0 [place] # (Auto) 1.0 Eos # (Auto) 0.3 Baso # (Auto) 0.1 Immature Gran # (Auto) 0.1 Sodium 136.0 Potassium 3.50 Chloride 107.0 Carbon Dioxide 28.0 Anion Gap 4.50 BUN 8.0 Creatinine 1.00 Estimated GFR (MDRD) 55.00 BUN/Creatinine Ratio 8.00 Glucose 103.0 Lactic Acid Calcium 7.90 L Total Bilirubin 0.70 AST 23.0 ALT 17.0 Alkaline Phosphatase 71.0 D Total Protein 5.10 L Albumin 2.60 L Globulin 2.50 Albumin/Globulin Ratio 1.04 Procalcitonin Urine Color Urine Clarity Urine pH Ur Specific [place] Urine Protein Urine Glucose (UA) Urine Ketones Urine Blood Urine Nitrite Urine Bilirubin Urine Urobilinogen Ur Leukocyte Esterase Urine Microscopic WBC Ur Squamous Epith Cells Urine Bacteria Hyaline Casts SARS CoV-2 RNA Rapid ELANA Microbiology This Visit 08/23/23 14:10 Urine,Clean Catch Urine Culture - Preliminary Imaging Imaging: EXAM: CT ABDOMEN AND PELVIS WITH CONTRAST HISTORY: Generalized abdominal pain. TECHNIQUE: Contiguous axial tomographic sections were obtained from the dome of the diaphragm through the ischial tuberosities following the administration of iodinated intravenous contrast. Coronal and sagittal reformats were then performed. Automatic exposure control was utilized for dose reduction technique. COMPARISON: 01/28/2018 FINDINGS: There is a bleb at the right lung base measuring 5 x 2.9 cm. No focal infiltrate or effusion at the bases. No hepatic masses are detected. There is mild intrahepatic biliary ductal prominence, probably within normal limits status post cholecystectomy. Portal veins are patent. Negative for portal venous gas. The pancreas, spleen, and adrenals are unremarkable. Kidneys are unremarkable. Atheromatous aorta without aneurysm. There is high-grade stenosis at the celiac origin. Atheromatous calcifications about the origin. The SMA appears intact. No pathologic adenopathy. No bowel obstruction. Appendix not visualized, suspect prior appendectomy with clips adjacent to the tip of the cecum. There is descending and sigmoid colonic diverticulosis present. There is moderate to severe wall thickening involving a segment of the mid to distal sigmoid measuring approximately 12 cm in length. No evidence of a focal abscess. Moderate adjacent stranding of the fat. No evidence of perforation. The urinary bladder dome posteriorly abuts a portion of the affected disease colon. There is gas noted within the bladder lumen. Status post hysterectomy. No gross adnexal masses. No acute bony abnormalities. Severe degenerative disc disease L4-5. IMPRESSION: 1. Abnormal exam. Acute mid to distal sigmoid diverticulitis. No focal fluid collection or abscess identified. No evidence of free air/perforation. 2. There is contiguity between the diseased colon and the posterior dome of the urinary bladder with gas within the bladder lumen, the possibility of a colovesicular fistula is not excluded and clinical correlation and clinical follow-up of this finding is advised. 3. High-grade stenosis celiac origin. Diffuse atheromatous calcifications of the abdominal aorta. Other ancillary findings as above Review Review Statement: I have independently reviewed and interpreted the labs/EKGs/imaging that were ordered by the ER provider. I have reviewed all outside records that are available currently in our EMR including imaging/notes/labs from previous visits. Plan Reccomendations/Plan: 1. Acute Diverticulitis - received NS@100mL/hr overnight, clear liquid diet advance as tolerated, zosyn 3.375mg Q6H 2. UTI - urine culture prelim showing gram negative rods, covered with zosyn at this time 3. 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 High grade stenosis of celiac origin - follow-up with General Surgery on discharge All home medications continued for chronic conditions. No changes made. Patient was able to advance diet this am and tolerated well. No further episodes of nausea, diarrhea, or pain. Plans to take tylenol at home for pain. RX for amoxicillin sent in. Discussed will contact patient if urine culture and sensitivity does not show coverage with augmentin. Discussed need for GI and General Surgery follow-ups due to CT scan findings. Additional Planning: Case discussed with ED Physician, Dr. Aparicio. DVT Prophylaxis: up ad santo Smoking Cessation: 5 minutes spent discussing smoking cessation. Disposition: Admit to: Med/surg observation Discussed Plan of Care with Dr. Travis Campbell Full Code If patient discharged with Left Ventricular Systolic Dysfunction: NA Discharged with a beta sadie? [] If no, why not? [] Discharged with an kimberlyn/arb? [] If no, why not? [] DX: ACUTE DIVERTICULITIS, ACUTE UTI, COLOVESICULAR FISTULA, HIGH GRADE STENOSIS OF CELIAC ORIGIN RX: Amoxicillin X 8 DAYS FOLLOW-UPS SCHEDULED WITH PCP AND GI, PENDING REFFERAL SENT TO [facility] Review With Patient Reviewed with Patient and Family: Patient and family have been counseled on condition and care plan and have no immediate questions. I have personally discussed and reviewed the patient's visit/current la bs/imaging/decision making with Dr. Disha Campbell, my supervising attending. Total number of minutes spent with patient 85 min. More than 50% of the time spent with this patient was devoted to counseling and coordination of care. Time of Admission:08/23/23 16:33 Time of Discharge: 08/24/23 11:45 Discharge Plan Discharge Discharge Orders: Discharge Patient (ONCE); Ordered 08/24/23 Ordered By: ALLYSSA PATTERSON Activity Restrictions/Additional Instructions: [place] diet, advance as tolerated Activity as tolerated PCP follow-up later this week. GI follow-up next week General surgery as directed below Medications: Amoxicillin 875mg take 1 by mouth twice a day for 8 days starting tomorrow Avoid aleve or ibuprofen for pain. May use tylenol only. YOU HAVE BEEN REFERRED TO [facility] FOR FOLLOW UP, THEY WILL BE IN CONTACT WITH YOU TO SCHEDULE AN APPOINTMENT. SHOULD YOU HAVE QUESTIONS OR NOT HEAR FROM THEM WITHIN A FEW DAYS PLEASE CALL THEM AT [phone]. Instructions: Diverticulitis (GEN), Urinary Tract Infection in Women (GEN), Diverticulitis Diet (GEN) Patient Disposition: HOME WITH FAMILY CARE Prescriptions: New amoxicillin 875 mg tablet 875 mg PO BID Qty: 16 0RF Continued fexofenadine [Tammi Allergy] 180 MG tablet 180 mg PO DAILY metoprolol succinate [Toprol XL] 25 MG tablet extended release 24 hr 25 mg PO BEDTIME atorvastatin [Lipitor] 20 mg Tablet 40 mg PO BEDTIME Stiolto Respimat 2.5-2.5 mcg/actuation Mist 2 puff INHALATION DAILY albuterol 90 mcg/actuation Aerosol 90 mcg INHALATION Q4-6H PRN (Reason: SOB) ipratropium-albuterol 0.5 mg-3 mg(2.5 mg base)/3 mL Solution For Nebulization 3 ml INHALATION Q4-6H PRN (Reason: sob) calcium carbonate-vitamin D3 [Calcium 600 + D(3)] 600 mg-10 mcg (400 unit) Tablet 1 tab PO DAILY pantoprazole [Protonix] 40 mg Tablet,Delayed Release (Dr/Ec) 40 mg PO DAILY ibuprofen 600 mg tablet 600 mg PO Q6H PRN (Reason: pain) Qty: 30 0RF cyanocobalamin (vitamin B-12) 5,000 mcg tablet, sublingual 3,000 mcg sublingual DAILY (DME) NEBULIZER Misc See Rx Instructions .ROUTE Qty: 1 0RF Rx Instructions: As directed Did you review [place] OUTPATIENT PHYSICAL THERAPIST ASSISTANT for ALL controlled substances?: No Discussed opioids are addictive and Narcan is available by prescription or from pharmacy.: No Referrals: MADELINE GONZALES MD [Primary Care Provider] - 08/27/23 10:00 am CRISS JOSÉ [REFERRING] - 09/08/23 1:30 pm
== END 2023-08-24 13:00 | disposition home or self-care (01) ==
LOC: ED 13:59 → INTOOBSV 16:33 → MEDSURG B 16:33
PROVIDERS: ADMIT Hospitalist; ATTEND Nurse Practitioner Family

== ENCOUNTER 2023-09-08 17:22 | Inpatient (IN) ==
--- NOTE | 2023-09-08 17:50 | ED.PDOC ---
General ED Provider: Dr. JENNY BUNN MD Chief Complaint: Abdominal Pain Stated Complaint: Patient with a history of COPD, sleep apnea, hypertension, recent hospitalized August 23, 2023 for treatment of sigmoid diverticulitis and a urinary tract infection. Patient now complains of having lower abdominal pain the past 3 days severe pain discomfort pain scale 5/10 patient denies associated fever, nausea, vomiting, urinary symptoms and diarrhea. Patient's had 5 previous abdominal surgeries hysterectomy, appendectomy, ovarian cystectomy, and exploratory lap x 2. Time Seen by Provider: 09/08/23 17:40 Mode of Arrival: Walk-In Information Source: Patient Primary Care Provider: MADELINE GONZALES Nursing and Triage Documentation Reviewed and Agree: Yes Does Patient Take Opioids?: No Is Patient Opioid Naive?: No What is Opioid Naive?: *Opioid Naive implies the patient is not already taking opioids or not chronically receiving opioids on a daily basis. *PRN dosing is not "usually" associated with tolerance. *Patients are at higher risk of over-sedation and aspiration. What is Opioid Tolerant?: *Opioid Tolerance implies less than the expected response to an opioid. *Acquired tolerance is defined by the patient taking 60mg of oral morphine daily (or equianalgesic dose of another opioid) for 1 week or more. *Often associated with chronic pain. *May take more than usual dose to achieve desired pain control. Review of Systems Review Of Systems Constitutional: Reports No symptoms Eyes: Reports No symptoms Ears, Nose, Mouth, Throat: Reports No symptoms Respiratory: Reports No symptoms Cardiac: Reports No symptoms GI: Reports Abdominal pain : Reports No symptoms Musculoskeletal: Reports No symptoms Skin: Reports No symptoms Neurological: Reports No symptoms Endocrine: Reports No symptoms Hematologic/Lymphatic: Reports No symptoms All Other Systems: Reviewed and Negative [facility] Medical History (Updated 09/08/23 @ 20:39 by JENNY BUNN MD) Seasonal allergies J30.2 - Other seasonal allergic rhinitis (ICD-10) Elevated cholesterol E78.00 - Pure hypercholesterolemia, unspecified (ICD-10) Family History Mother Elevated cholesterol Seasonal allergies Hypertension FATHER Alcoholism SISTER Elevated cholesterol Blood disease Hypertension BROTHER Elevated cholesterol Alcoholism Blood disease Hypertension Other Cancer Obstetric anesthesia problems Social History Smoking and tobacco status: Current every day smoker Alcohol intake: never Substance use type: does not use Housing: house Seatbelt use: always Drives intoxicated or rides with intoxicated nascar driver: No Water heater temperature set < 120 degrees: Yes Working smoke detector in home: Yes Fire extinguisher in home: Yes Carbon monoxide detector in home: Yes Firearms in home: Yes Surgical History Status post tonsillectomy Z90.89 - Acquired absence of other organs (ICD-10) Status post hysterectomy Z90.710 - Acquired absence of both cervix and uterus (ICD-10) Status post cholecystectomy Z90.49 - Acquired absence of other specified parts of digestive tract (ICD- 10) Status post appendectomy Z90.49 - Acquired absence of other specified parts of digestive tract (ICD- 10) Female Reproductive History Menstrual Hx Hysterectomy: Yes Hx Tubal Ligation: No Physical Exam Physical Exam Appearance: Reports Well-appearing Ill-appearing: None Pain Distress: Mild Eyes: Reports GIOVANNY, EOMI and Conjunctiva clear ENT: Reports Nose normal and Oropharynx normal Neck: Supple Respiratory: Reports Airway patent, Breath sounds clear and Breath sounds equal Cardiovascular: Reports RRR, Pulses normal, No rub and No murmur GI/: Reports Soft, No masses and Other (Bowel sounds are high-pitched there is moderate periumbilical and bilateral lower quadrant tenderness with slight guarding. There is no rebound tenderness noted. There is no palpable masses noted.) Musculoskeletal: Reports Normal strength, ROM intact, No edema and No calf tenderness Skin: Reports Warm and Dry Neurological: Reports Sensation intact and Motor intact Psychiatric: Reports Affect appropriate Re-Evaluation Re-Evaluation Time of Re-Evaluation: 20:35 Status: Worse Vital Signs Stable: Yes Pain Level: Patient states her pain has reoccurred after initially improving. History Physician Notification Case Discussed Physician Notified: Discussed with Cirilo WEAVER Time of Notification: 20:35 Comments: Results of the CT scan discussed along with elevated white count of 18,000 patient is being admitted. Critical Care Note Critical Care Note Total Critical Care Time (mins): 0 Course Course 09/08/23 17:50 09/08/23 17:50 Orders, Labs, Meds: Lab Review 09/08/23 09/08/23 09/08/23 17:50 17:51 20:56 WBC 18.71 H RBC 4.72 Hgb 14.0 Hct 44.2 MCV 93.6 MCH 29.7 MCHC 31.7 L RDW Coeff of [place]anza 14.0 Plt Count 586 H Immature Gran % (Auto) 1.0 Neut % (Auto) 71.7 Lymph % (Auto) 18.9 [place] % (Auto) 7.5 Eos % (Auto) 0.5 Baso % (Auto) 0.4 Neut # (Auto) 13.4 H Lymph # (Auto) 3.5 H [place] # (Auto) 1.4 Eos # (Auto) 0.1 Baso # (Auto) 0.1 Immature Gran # (Auto) 0.2 Sodium 137.6 Potassium 3.38 L Chloride 102.2 Carbon Dioxide 29.1 Anion Gap 9.68 BUN 18.0 H Creatinine 1.00 Estimated GFR (MDRD) 55.00 BUN/Creatinine Ratio 18.00 Glucose 141.2 H Lactic Acid 1.50 Calcium 9.22 Magnesium 2.03 Total Bilirubin 0.47 AST 24.3 ALT 22.8 Alkaline Phosphatase 116.1 Total Protein 6.74 Albumin 4.15 Globulin 2.59 Albumin/Globulin Ratio 1.60 Lipase 97.1 Urine Color Yellow Urine Clarity Clear Urine pH 5.5 Ur Specific [place] 1.020 Urine Protein Negative Urine Glucose (UA) Negative Urine Ketones Negative Urine Blood Trace-intact H Urine Nitrite Positive H Urine Bilirubin Negative Urine Urobilinogen 0.2 Ur Leukocyte Esterase Negative Urine Microscopic RBC 2-5 Urine Microscopic WBC 0-2 Ur Squamous Epith Cells 2-5 Urine Bacteria 2+ SARS CoV-2 RNA Rapid ELANA Negative Orders Category Date Time Status ADMIT OBSERVATION [PLACE PATIENT OBSERVATION] .TO ADMISSION 09/08/23 20:41 Active MEDSURG (NON-MONITORED BED) ACCUCHECK (MED/SURG, SCU) [BLOOD GLUCOSE MONITORING ( CARE 09/08/23 20:41 Active MED/SURG)] ACCUCHECK Q6H ACTIVITY .Early Mobilization for VTE Prevention CARE 09/08/23 20:48 Active INTAKE & OUTPUT Q8HR CARE 09/08/23 20:49 Active NPO REMINDER: IMAGING ONCE CARE 09/08/23 17:51 Completed VITAL SIGNS Q4HR CARE 09/08/23 20:49 Active NPO [NOTHING BY MOUTH] DIETARY 09/09/23 Breakfast Ordered BLOOD CULTURE Stat LAB 09/08/23 18:24 Received CBC W/ AUTO DIFF DAILY@0600 LAB 09/09/23 06:00 Ordered CBC W/ AUTO DIFF DAILY@0600 LAB 09/10/23 06:00 Ordered CBC W/ AUTO DIFF Stat LAB 09/08/23 17:50 Completed CMP [COMPREHENSIVE METABOLIC PANEL] Stat LAB 09/08/23 17:50 Completed COMPREHENSIVE METABOLIC PANEL DAILY@0600 LAB 09/09/23 06:00 Ordered COMPREHENSIVE METABOLIC PANEL DAILY@0600 LAB 09/10/23 06:00 Ordered COVID [SARS COV-2 RNA RAPID ELANA] Stat LAB 09/08/23 20:56 Completed LACTIC ACID Stat LAB 09/08/23 17:50 Completed LIPASE Stat LAB 09/08/23 17:51 Completed MAGNESIUM Stat LAB 09/08/23 17:50 Completed URINALYSIS C & S IF INDICATED Stat LAB 09/08/23 17:51 Completed URINE CULTURE Stat LAB 09/08/23 19:11 Received Acetaminophen [Tylenol] Meds 09/08/23 20:48 Active 650 mg PO Q4H PRN Fentanyl Citrate/Pf [Sublimaze] Meds 09/08/23 17:50 Discontinued 50 mcg IVP ONCE ONE Fentanyl Citrate/Pf [Sublimaze] Meds 09/08/23 20:29 Discontinued 50 mcg IVP ONCE ONE Fentanyl Citrate/Pf [Sublimaze] Meds 09/08/23 20:48 Active 50 mcg IVP Q4H PRN Ketorolac Tromethamine [Toradol] Meds 09/08/23 20:48 Active 15 mg IVP Q6H PRN Levofloxacin/D5w [Levaquin 500 mg/100 ml D5w] Meds 09/08/23 19:45 Discontinued 500 mg in 100 ml IV ONCE Metoclopramide HCl [Reglan] Meds 09/08/23 20:41 Active 5 mg IVP Q6H PRN Metronidazole/Sodium Chloride [Flagyl 500 mg/100 ml] Meds 09/09/23 00:00 Active 500 mg in 100 ml IV Q6HR Ondansetron HCl/Pf [Zofran 4 mg/2 ml] Meds 09/08/23 17:50 Discontinued 4 mg IVP ONCE STA Ondansetron HCl/Pf [Zofran 4 mg/2 ml] Meds 09/08/23 20:41 Active 4 mg IVP Q6H PRN Ringers Lactated Solution [Lactated Ringers] 1,000 ml Meds 09/08/23 21:00 Active IV 100 mls/hr Sodium Chloride 0.9% [Sodium Chloride] 500 ml Meds 09/08/23 17:50 Discontinued IV 500 mls/hr CT ABDOMEN/PELVIS W CONTRAST Stat RADS 09/08/23 17:50 Completed Medications Generic Name Dose Route Start Last Admin Trade Name Natividad PRN Reason Stop Dose Admin Acetaminophen 650 mg 09/08/23 20:48 Acetaminophen 325 Mg Tablet PO Q4H PRN Mild Pain Fentanyl Citrate 50 mcg 09/08/23 20:48 Fentanyl 50 Mcg/Ml Sdv IVP Q4H PRN Abdominal Pain Metronidazole 500 mg in 100 mls @ 100 mls/hr 09/09/23 00:00 Flagyl 500 Mg/100 Ml IV 09/12/23 00:00 Q6HR KIMBERLEY Lactated Ringer's 1,000 mls @ 100 mls/hr 09/08/23 21:00 Lactated Ringers IV .Q10H KIMBERLEY Ketorolac Tromethamine 15 mg 09/08/23 20:48 Ketorolac Tromethamine 15 Mg/Ml Vial IVP Q6H PRN Pain Metoclopramide HCl 5 mg 09/08/23 20:41 Metoclopramide Hcl 10 Mg/2 Ml IVP Q6H PRN Nausea / Vomiting Ondansetron HCl 4 mg 09/08/23 20:41 Ondansetron Hcl/Pf 4 Mg/2 Ml Sdv IVP Q6H PRN Nausea / Vomiting Discontinued Medications Generic Name Dose Route Start Last Admin Trade Name Natividad PRN Reason Stop Dose Admin Fentanyl Citrate 50 mcg 09/08/23 17:50 09/08/23 18:13 Fentanyl 50 Mcg/Ml Sdv IVP 09/08/23 17:51 50 mcg ONCE ONE Administration Fentanyl Citrate 50 mcg 09/08/23 20:29 09/08/23 20:54 Fentanyl 50 Mcg/Ml Sdv IVP 09/08/23 20:30 50 mcg ONCE ONE Administration Sodium Chloride 500 mls @ 500 mls/hr 09/08/23 17:50 09/08/23 18:11 Sodium Chloride IV 09/08/23 18:49 500 mls/hr .Q1H ONE Administration Levofloxacin/Dextrose 500 mg in 100 mls @ 100 mls/hr 09/08/23 19:45 09/08/23 20:18 Levaquin 500 Mg/100 Ml D5w IV 09/08/23 20:44 100 mls/hr ONCE ONE Administration Ondansetron HCl 4 mg 09/08/23 17:50 09/08/23 18:12 Ondansetron Hcl/Pf 4 Mg/2 Ml Sdv IVP 09/08/23 17:51 4 mg ONCE STA Administration Vital Signs: Temp Pulse Resp BP Pulse Ox 09/08/23 17:25 97.6 F 110 H 16 174/77 H 96 Discharge Plan Discharge Patient Disposition: ADMITTED INPATIENT Discharge Problem: Diverticulitis of sigmoid colon Did you review [place] [employer] for ALL controlled substances?: Not Applicable ED Provider: JENNY BUNN Condition: Stable Physician Progress Note: History obtained from the patient was his spouse who complains of being hospitalized on date 08/23/2023 for acute sigmoid diverticulitis and over the past 3 days patient complains of recurrence of her lower abdominal pain discomfort pain scale 5/10 patient denies nausea, vomiting, diarrhea, fever, and urinary symptoms. Patient given IV fluids normal saline 1 L 520 mill/hour, Zofran 4 mg, and fentanyl 50 mics IV After 2 sets of blood cultures the patient administered Levaquin 5 4 mg IV piggyback The abdominal CT scan with intravenous contrast interpretation by radiologist is consistent with no liver or splenic lesions, pancreas, adrenal glands, kidneys unremarkable. There is no abdominal aortic aneurysm. There is subtleinflammation adjacent to the sigmoid colon probable mild early sigmoid diverticulitis Differential diagnosis: 1) sigmoid diverticulitis Discussed with EMG Kerr, hospitalist at 2034 for admission []
[2023-09-08] MEDS: SODIUM CHLORIDE 500 ML IV ONE (18:11)
[2023-09-08] MEDS: ZOFRAN 4 MG/2 ML IVP STA (18:12)
[2023-09-08] MEDS: SUBLIMAZE IVP ONE ×2 (18:13→20:54)
[2023-09-08 18:37] LABS: BASOPHILS # (AUTO) 0.1 K/uL (0-0.2); BASOPHILS % (AUTO) 0.4 % (0.0-3.0); EOSINOPHILS # (AUTO) 0.1 K/ul (0.0-0.7); EOSINOPHILS % (AUTO) 0.5 % (0.0-7.0); HEMATOCRIT 44.2 % (37.0-47.0); IMMATURE GRANULOCYTE # (AUTO) 0.2 (0.0-1.0); LYMPHOCYTES # (AUTO) 3.5 K/uL (0.60-3.4); LYMPHOCYTES % (AUTO) 18.9 (10.0-50.0); MEAN CORPUSCULAR HEMOGLOBIN 29.7 pg (27.0-31.0); MEAN CORPUSCULAR HGB CONC 31.7 (31.8-35.4); MEAN CORPUSCULAR VOLUME 93.6 fl (81.0-99.0); MONOCYTES # (AUTO) 1.4 K/uL (0.4-2.0); MONOCYTES % (AUTO) 7.5 (0-10); NEUTROPHILS # (AUTO) 13.4 K/ul (2.0-6.9); NEUTROPHILS % (AUTO) 71.7 % (42.2-75.2); PLATELET COUNT 586 10^3/uL (140-440); RED BLOOD COUNT 4.72 10^6/ul (4.20-5.40); WHITE BLOOD COUNT 18.71 K/ul (4.6-10.2)
[2023-09-08 18:50] LABS: ALANINE AMINOTRANSFERASE 22.8 U/L (0-35); ALBUMIN 4.15 g/dL (3.5-5.0); ALKALINE PHOSPHATASE 116.1 U/L (53-141); ASPARTATE AMINO TRANSFERASE 24.3 U/L (14-36); BILIRUBIN,TOTAL 0.47 mg/dL (0.2-1.3); CALCIUM 9.22 mg/dL (8.4-10.2); CARBON DIOXIDE 29.1 mmol/L (22-30.0); CHLORIDE 102.2 mmol/L (98-107); GLUCOSE 141.2 mg/dL (74-106); MAGNESIUM 2.03 mg/dL (1.6-2.3); POTASSIUM 3.38 mmol/L (3.5-5.1); SODIUM 137.6 mmol/L (134.5-145); TOTAL PROTEIN 6.74 g/dL (6.3-8.2)
[2023-09-08 18:57] LABS: BILIRUBIN,URINE Negative (NEGATIVE); CLARITY,URINE Clear (CLEAR); COLOR,URINE Yellow (YELLOW); GLUCOSE, URINE (UA) Negative (NEGATIVE); KETONES,URINE Negative (NEGATIVE); LEUKOCYTE ESTERASE ,URINE Negative (NEGATIVE); NITRITE,URINE Positive (NEGATIVE); PH,URINE 5.5 (5-9); PROTEIN,URINE Negative (NEGATIVE); URINE, BLOOD Trace-intact (NEGATIVE); UROBILINOGEN,URINE 0.2 (0.2)
[2023-09-08 19:10] LABS: BACTERIA,URINE 2+ (NOT PRESENT); URINE WBC, MICROSCOPIC 0-2 (0-2)
--- NOTE | 2023-09-08 19:30 | CT ---
EXAM: CT OF THE ABDOMEN PELVIS WITH CONTRAST History: Severe abdominal pain. Comparison: CT abdomen pelvis 08/23/2023 Technique: Multiplanar CT images through the abdomen pelvis were obtained following administration o f IV contrast FINDINGS: Lung bases are clear. No acute osseous abnormalities. Status post cholecystectomy. No liver or splenic lesions. Pancreas, adrenal glands and kidneys are unremarkable. No abdominal aortic aneurysm. Atherosclerotic vascular calcifications. No bowel obst ruction. No free air and no ascites. No bladder wall thickening. Colonic diverticulosis. Previous hysterectomy. There is subtle inflammation adjacent to the sigmoid colon. No abscess. Impression: Probable mild early sigmoid diverticulitis. No free air and no abscess All CT scans are performed using dose optimization techniques as appropriate to the performed exam an d include at least one of the following: Automated exposure control, adjustment of the mA and/or kV according t o size, and the use of iterative reconstruction technique.
[2023-09-08] MEDS: LEVAQUIN 500 MG/100 ML D5W 500 MG/100 ML BAG IV ONE (20:18)
[2023-09-08] MEDS ORDERED: ZOFRAN 4 MG/2 ML IVP PRN (20:41)
[2023-09-08] MEDS ORDERED: REGLAN IVP PRN (20:41)
[2023-09-08] MEDS ORDERED: TORADOL IVP PRN (20:48)
[2023-09-08] MEDS ORDERED: TYLENOL PO PRN (20:48)
[2023-09-08 21:15] LABS: SARS COV-2 RNA RAPID NAAT NEGATIVE (NEGATIVE)
[2023-09-08] MEDS: LACTATED RINGERS 1,000 ML IV SCH (21:47)
[2023-09-08 23:00] VITALS: BMI 25.4
[2023-09-08] MEDS: FLAGYL 500 MG/100 ML 500 MG/100 ML BAG IV SCH (23:26)
[2023-09-09] MEDS: DUONEB NEB PRN (05:27)
[2023-09-09 05:37] LABS: BASOPHILS # (AUTO) 0.1 K/uL (0-0.2); BASOPHILS % (AUTO) 0.6 % (0.0-3.0); EOSINOPHILS # (AUTO) 0.4 K/ul (0.0-0.7); EOSINOPHILS % (AUTO) 2.8 % (0.0-7.0); HEMOGLOBIN 12.1 g/dl (12.0-16.0); IMMATURE GRANULOCYTE # (AUTO) 0.2 (0.0-1.0); IMMATURE GRANULOCYTE % (AUTO) 1.3 % (0.0-5.0); LYMPHOCYTES # (AUTO) 3.9 K/uL (0.60-3.4); LYMPHOCYTES % (AUTO) 29.5 (10.0-50.0); MEAN CORPUSCULAR HEMOGLOBIN 29.4 pg (27.0-31.0); MEAN CORPUSCULAR VOLUME 94.9 fl (81.0-99.0); MONOCYTES % (AUTO) 7.9 (0-10); NEUTROPHILS # (AUTO) 7.6 K/ul (2.0-6.9); NEUTROPHILS % (AUTO) 57.9 % (42.2-75.2); PLATELET COUNT 468 10^3/uL (140-440); RDW COEFFICIENT OF VARIATION 14.1 % (11.6-14.8); RED BLOOD COUNT 4.11 10^6/ul (4.20-5.40)
[2023-09-09 05:39] LABS: WHITE BLOOD COUNT 13.13 K/ul (4.6-10.2)
[2023-09-09 05:41] LABS: ALANINE AMINOTRANSFERASE 17.2 U/L (0-35); ALBUMIN 3.22 g/dL (3.5-5.0); ALKALINE PHOSPHATASE 88.9 U/L (53-141); ASPARTATE AMINO TRANSFERASE 17.3 U/L (14-36); BILIRUBIN,TOTAL 0.78 mg/dL (0.2-1.3); BLOOD UREA NITROGEN 14.1 mg/dL (7-17); CALCIUM 8.5 mg/dL (8.4-10.2); CARBON DIOXIDE 32.3 mmol/L (22-30.0); CHLORIDE 103.8 mmol/L (98-107); CREATININE 0.95 mg/dL (0.60-1.30); GLUCOSE 91.4 mg/dL (74-106); POTASSIUM 3.62 mmol/L (3.5-5.1); SODIUM 137.3 mmol/L (134.5-145); TOTAL PROTEIN 5.41 g/dL (6.3-8.2)
[2023-09-09] MEDS ORDERED: DUONEB NEB PRN (05:42)
[2023-09-09] MEDS: SUBLIMAZE IVP PRN (05:46)
[2023-09-09] MEDS: NON-FORMULARY MEDICATION (Tiotropium-Olodaterol [Stiolto Respimat] 2.5-2.5 mcg/actuation M IH SCH (08:25)
[2023-09-09] MEDS: LACTOBACILLUS ACIDOPHILUS 0.5 MG PO SCH (08:27)
[2023-09-09] MEDS: [UNRECOGNIZED DRUG - REMARK] PO SCH (08:28)
[2023-09-09] MEDS: ASPIRIN EC PO SCH (08:35)
[2023-09-09] MEDS: PREDNISONE 10 MG PO SCH (08:36)
[2023-09-09] MEDS ORDERED: NON-FORMULARY MEDICATION (Aspirin 81 mg capsule) PO SCH (09:00)
--- NOTE | 2023-09-09 13:18 | PCM ---
Date of Service Date Seen by Provider: 09/09/23 Time Seen by Provider: 09:00 Admit Day/Time Admission Date: 09/08/23 Reason for Admission Chief Complaint: DIVERTICULITIS Hospital Provider Hospital Provider: [place] [facility] [place] Primary Care Physician: MADELINE GONZALES History of Present Illness History of Present Illness: 68 yo female presented to the ER with complaints of abdominal pain and diarrhea. Patient was admitted on 08/23-08/23 for acute sigmoid diverticulitis and UTI. She was treated with IV zosyn and sent home on Amoxicillin. 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 Appointment was setup with her GI - Dr. Moreno and referral sent to General Surgery. Reports she saw GI yesterday and was instructed to go to the ER due to pain and likely return of diverticulitis. States they told her they would not be able to do a colonoscopy until infection resolved. States that she spoke with General Surgery and they are waiting on GI to determine their plan before they decide to do anything further. This admission patient was found to have mild sigmoid diverticulitis and UTI again. Patient reports onset 3 days ago of low back pain and generalized abdominal pain that she describes as an aching, gnawing, cramping pain. Has been following a bland diet and avoiding diverticulitis provoking foods. Denies any fever or urinary symptoms. Denies any blood in her stools. Has had a couple episodes of diarrhea prior to admission. States pain is improving but still present and asking to advance diet to clear liquids from npo with ice chips. Case Discussed With Case Discussed With: Patient's case was discussed with the ER Physicians, Dr. Olguin. [facility] Medical History Seasonal allergies J30.2 - Other seasonal allergic rhinitis (ICD-10) Elevated cholesterol E78.00 - Pure hypercholesterolemia, unspecified (ICD-10) Surgical History Status post tonsillectomy Z90.89 - Acquired absence of other organs (ICD-10) Status post hysterectomy Z90.710 - Acquired absence of both cervix and uterus (ICD-10) Status post cholecystectomy Z90.49 - Acquired absence of other specified parts of digestive tract (ICD- 10) Status post appendectomy Z90.49 - Acquired absence of other specified parts of digestive tract (ICD- 10) Family History Mother Elevated cholesterol Seasonal allergies Hypertension FATHER Alcoholism SISTER Elevated cholesterol Blood disease Hypertension BROTHER Elevated cholesterol Alcoholism Blood disease Hypertension Other Cancer Obstetric anesthesia problems Social History Smoking and tobacco status: Current every day smoker Tobacco type: cigarettes Alcohol intake: never Substance use type: does not use Housing: house Seatbelt use: always Drives intoxicated or rides with intoxicated team cdl driver: No Water heater temperature set < 120 degrees: Yes Working smoke detector in home: Yes Fire extinguisher in home: Yes Carbon monoxide detector in home: Yes Firearms in home: Yes Allergies Allergies Allergy/AdvReac Type Severity Reaction Status Date / Time clavulanic acid AdvReac Unknown Verified 09/08/23 17:29 [From Augmentin] morphine AdvReac Unknown Verified 09/08/23 17:29 pravastatin [From Pravachol] AdvReac Unknown Verified 09/08/23 17:29 risedronate sodium AdvReac Unknown Verified 09/08/23 17:29 [From Actonel] Current Medications Home Medications fexofenadine 180 mg tablet (Tammi Allergy) 180 mg PO DAILY 07/23/14 [History Confirmed 09/08/23 Last Taken 08/23/23 08:00] metoprolol succinate 25 mg tablet,extended release 24 hr (Toprol XL) 25 mg PO BEDTIME 07/23/14 [History Confirmed 09/08/23 Last Taken 08/22/23 21:00 25 mg] pantoprazole 40 mg tablet,delayed release (Protonix) 40 mg PO DAILY 08/17/21 [History Confirmed 09/08/23 Last Taken 08/23/23 08:00 40 mg] albuterol 90 mcg/actuation aerosol inhaler 90 mcg inhalation Q4-6H PRN SOB 10/29/21 [History Confirmed 09/08/23 Last Taken 08/23/23 13:56 90 mcg] atorvastatin 20 mg tablet (Lipitor) 40 mg PO BEDTIME 10/29/21 [History Confirmed 09/08/23 Last Taken 08/22/23 21:00 40 mg] calcium carbonate 600 mg-vitamin D3 10 mcg (400 unit) tablet (Calcium 600 + D(3)) 1 tab PO DAILY 10/29/21 [History Confirmed 09/08/23 Last Taken 08/23/23 08:56 1 tab] ipratropium 0.5 mg-albuterol 3 mg (2.5 mg base)/3 mL nebulization soln 3 ml inhalation Q4-6H PRN sob 10/29/21 [History Confirmed 09/08/23 Last Taken 08/22/23 06:00 3 mL] tiotropium 2.5 mcg-olodaterol 2.5 mcg/actuation mist for inhalation (Stiolto Respimat) 2 puff inhalation DAILY 10/29/21 [History Confirmed 09/08/23 Last Taken 08/23/23 08:00 2 puff] cyanocobalamin (vitamin B-12) 5,000 mcg sublingual tablet 3,000 mcg sublingual DAILY 01/23/23 [History Confirmed 09/08/23 Last Taken 08/23/23 08:00 3,000 mcg] C.NEBULIZER (NEBULIZER) #1 ea 01/25/23 [Rx Confirmed 09/08/23 Last Taken Unknown] aspirin 81 mg capsule 81 mg PO DAILY 09/08/23 [History Confirmed 09/08/23 Last Taken Unknown] prednisone 10 mg tablet 10 mg PO DAILY 09/08/23 [History Confirmed 09/08/23 Last Taken Unknown] Lactobacillus acidophilus 0.5 mg (100 million cell) tablet 50 mmu cells PO DAILY 09/09/23 [History Confirmed 09/09/23 Last Taken Unknown] Home Acetaminophen (Acetaminophen 325 Mg Tablet) 650 mg PO Q4H PRN PRN Reason: Mild Pain Albuterol/Ipratropium (Ipratropium/Albuterol Vial.Neb) 3 ml NEB RTQ4H PRN PRN Reason: SOA/Wheezing Aspirin (Aspirin 81 Mg Tablet.) 81 mg PO DAILYWM2 [facility] Last Admin: 09/09/23 08:35 Dose: 81 mg Fentanyl Citrate (Fentanyl 50 Mcg/Ml Sdv) 50 mcg IVP Q4H PRN PRN Reason: Abdominal Pain Last Admin: 09/09/23 05:46 Dose: 50 mcg Metronidazole (Flagyl 500 Mg/100 Ml) 500 mg in 100 mls @ 100 mls/hr IV Q6HR [facility] Stop: 09/12/23 00:00 Last Admin: 09/09/23 12:41 Dose: 100 mls/hr Lactated Ringer's (Lactated Ringers) 1,000 mls @ 100 mls/hr IV .Q10H [facility] Last Admin: 09/09/23 09:44 Dose: 100 mls/hr Levofloxacin/Dextrose (Levaquin 750 Mg/150 Ml D5w) 750 mg in 150 mls @ 100 mls/hr IV BEDTIME [facility] Stop: 09/12/23 20:59 Ketorolac Tromethamine (Ketorolac Tromethamine 15 Mg/Ml Vial) 15 mg IVP Q6H PRN PRN Reason: Pain Metoclopramide HCl (Metoclopramide Hcl 10 Mg/2 Ml) 5 mg IVP Q6H PRN PRN Reason: Nausea / Vomiting Lipitor ( Atorvastatin) 40mg Tab 40 mg PO BEDTIME [facility] Non-Formulary Medication (Fexofenadine [Tammi Allergy]) 180 mg PO DAILY [facility] Last Admin: 09/09/23 08:28 Dose: 180 mg Non-Formulary Medication (Lactobacillus Acidophilus) 50 mmu cells PO DAILY [facility] Last Admin: 09/09/23 08:27 Dose: 50 mmu cells Non-Formulary Medication (Metoprolol Succinate [Toprol Xl]) 25 mg PO BEDTIME [facility] Non-Formulary Medication (Pantoprazole [Protonix]) 40 mg PO QDAC2 [facility] Last Admin: 09/09/23 08:27 Dose: 40 mg Non-Formulary Medication (Tiotropium-Olodaterol [Stiolto Respimat]) 2 puff IH DAILY [facility] Last Admin: 09/09/23 08:25 Dose: 2 puff Ondansetron HCl (Ondansetron Hcl/Pf 4 Mg/2 Ml Sdv) 4 mg IVP Q6H PRN PRN Reason: Nausea / Vomiting Discontinued Medications Albuterol/Ipratropium (Ipratropium/Albuterol Vial.Neb) 3 ml NEB Q4-6H PRN PRN Reason: SOA/Wheezing Last Admin: 09/09/23 05:27 Dose: 3 ml Fentanyl Citrate (Fentanyl 50 Mcg/Ml Sdv) 50 mcg IVP ONCE ONE Stop: 09/08/23 17:51 Last Admin: 09/08/23 18:13 Dose: 50 mcg Fentanyl Citrate (Fentanyl 50 Mcg/Ml Sdv) 50 mcg IVP ONCE ONE Stop: 09/08/23 20:30 Last Admin: 09/08/23 20:54 Dose: 50 mcg Sodium Chloride (Sodium Chloride) 500 mls @ 500 mls/hr IV .Q1H ONE Stop: 09/08/23 18:49 Last Infusion: 09/08/23 21:26 Dose: Infused Levofloxacin/Dextrose (Levaquin 500 Mg/100 Ml D5w) 500 mg in 100 mls @ 100 mls/hr IV ONCE ONE Stop: 09/08/23 20:44 Last Admin: 09/08/23 20:18 Dose: 100 mls/hr Non-Formulary Medication (Prednisone [Prednisone]) 10 mg PO DAILY [facility] Last Admin: 09/09/23 08:36 Dose: Not Given Ondansetron HCl (Ondansetron Hcl/Pf 4 Mg/2 Ml Sdv) 4 mg IVP ONCE STA Stop: 09/08/23 17:51 Last Admin: 09/08/23 18:12 Dose: 4 mg Opioid Naive vs. Tolerant Does Patient Take Opioids?: No Is Patient Opioid Naive?: Yes What is Opioid Naive?: *Opioid Naive implies the patient is not already taking opioids or not chronically receiving opioids on a daily basis. *PRN dosing is not "usually" associated with tolerance. *Patients are at higher risk of over-sedation and aspiration. Is Patient Opioid Tolerant?: No What is Opioid Tolerant?: *Opioid Tolerance implies less than the expected response to an opioid. *Acquired tolerance is defined by the patient taking 60mg of oral morphine daily (or equianalgesic dose of another opioid) for 1 week or more. *Often associated with chronic pain. *May take more than usual dose to achieve desired pain control. Review of Systems Constitutional: Reports No symptoms Head: Reports Normocephalic Eyes: Reports No symptoms Ears: Reports No symptoms Nose: Reports No symptoms Mouth: Reports No symptoms Throat: Reports No symptoms Cardiovascular: Reports No symptoms Respiratory: Reports No symptoms Gastrointestinal: Reports Diarrhea and Abdominal pain Genitourinary: Reports Flank Pain Musculoskeletal: Reports No symptoms Endocrine: Reports No symptoms Hematology: Reports No symptoms Immunology: Reports No symptoms Neurological: Reports No symptoms Psychiatric: Reports No symptoms Physical examination Most Recent Vital Signs: Most Recent Vital Signs Temperature 97.9 F 09/09/23 10:00 Temperature Source Oral 09/09/23 10:00 Temperature Source Infrared 09/08/23 17:25 Pulse Rate 73 09/09/23 10:00 Respiratory Rate 19 09/09/23 10:00 Blood Pressure 120/72 09/09/23 10:00 Blood Pressure Mean 88 09/09/23 10:00 Blood Pressure Left Arm 136/63 09/08/23 21:57 Blood Pressure Location Left Arm 09/09/23 10:00 Blood Pressure Position Sitting 09/09/23 10:00 O2 Sat by Pulse Oximetry 92 L 09/09/23 10:00 Oxygen Delivery Method Room Air 09/09/23 10:00 Oxygen Flow Rate 2 09/09/23 04:47 Height 5 ft 3 in 09/09/23 11:02 Weight 143 lb 6 oz 09/09/23 11:02 Telemetry Heart Rate 88 01/25/23 07:00 Appearance: Positive No Apparent Distress and Alert and Oriented x3 Skin: Positive Warm, Good Turgor and Good Color HEENT: Positive Normocephalic, Atraumatic and PERRLA Neck: Positive Supple and Midline Trachea Chest/Lungs: Positive Symmetrical With Equal Breath Sounds, Clear to Auscultation Bilaterally and Good Air Movement all 4 Lung Ward Heart: Positive RRR and Pulses Normal GI/: Positive Soft, Nontender, Bowel Sounds Normal and No Distention Musculoskeletal: Positive Not Examined Extremities: Positive Intact Peripheral Pulses, Stable Joints Without Laxity and Good ROM in All Joints Neurological: Positive Sensation Intact, Motor intact, Reflexes Intact, Alert, Oriented and Muscle Strength 5/5 in Upper and Lower Extremities Bilaterally Psychiatric: Positive Oriented x4, Appropriate Mood, Appropriate Affect and Intact Memory Labs This Visit Labs This Visit: Labs This Visit 09/08/23 09/08/23 09/08/23 17:50 17:51 20:56 WBC 18.71 H RBC 4.72 Hgb 14.0 Hct 44.2 MCV 93.6 MCH 29.7 MCHC 31.7 L RDW Coeff of Aranza 14.0 Plt Count 586 H Immature Gran % (Auto) 1.0 Neut % (Auto) 71.7 Lymph % (Auto) 18.9 [place] % (Auto) 7.5 Eos % (Auto) 0.5 Baso % (Auto) 0.4 Neut # (Auto) 13.4 H Lymph # (Auto) 3.5 H [place] # (Auto) 1.4 Eos # (Auto) 0.1 Baso # (Auto) 0.1 Immature Gran # (Auto) 0.2 Sodium 137.6 Potassium 3.38 L Chloride 102.2 Carbon Dioxide 29.1 Anion Gap 9.68 BUN 18.0 H Creatinine 1.00 Estimated GFR (MDRD) 55.00 BUN/Creatinine Ratio 18.00 Glucose 141.2 H Lactic Acid 1.50 Calcium 9.22 Magnesium 2.03 Total Bilirubin 0.47 AST 24.3 ALT 22.8 Alkaline Phosphatase 116.1 Total Protein 6.74 Albumin 4.15 Globulin 2.59 Albumin/Globulin Ratio 1.60 Lipase 97.1 Urine Color Yellow Urine Clarity Clear Urine pH 5.5 Ur Specific Paul 1.020 Urine Protein Negative Urine Glucose (UA) Negative Urine Ketones Negative Urine Blood Trace-intact H Urine Nitrite Positive H Urine Bilirubin Negative Urine Urobilinogen 0.2 Ur Leukocyte Esterase Negative Urine Microscopic RBC 2-5 Urine Microscopic WBC 0-2 Ur Squamous Epith Cells 2-5 Urine Bacteria 2+ SARS CoV-2 RNA Rapid ELANA Negative 09/09/23 05:04 WBC 13.13 H D RBC 4.11 L Hgb 12.1 Hct 39.0 MCV 94.9 MCH 29.4 MCHC 31.0 L RDW Coeff of [place]anza 14.1 Plt Count 468 H Immature Gran % (Auto) 1.3 Neut % (Auto) 57.9 Lymph % (Auto) 29.5 [place] % (Auto) 7.9 Eos % (Auto) 2.8 Baso % (Auto) 0.6 Neut # (Auto) 7.6 H Lymph # (Auto) 3.9 H [place] # (Auto) 1.0 Eos # (Auto) 0.4 Baso # (Auto) 0.1 Immature Gran # (Auto) 0.2 Sodium 137.3 Potassium 3.62 Chloride 103.8 Carbon Dioxide 32.3 H Anion Gap 4.82 BUN 14.1 Creatinine 0.95 Estimated GFR (MDRD) 59.00 BUN/Creatinine Ratio 14.84 Glucose 91.4 Lactic Acid Calcium 8.50 Magnesium Total Bilirubin 0.78 AST 17.3 ALT 17.2 Alkaline Phosphatase 88.9 D Total Protein 5.41 L Albumin 3.22 L Globulin 2.19 Albumin/Globulin Ratio 1.47 Lipase Urine Color Urine Clarity Urine pH Ur Specific Paul Urine Protein Urine Glucose (UA) Urine Ketones Urine Blood Urine Nitrite Urine Bilirubin Urine Urobilinogen Ur Leukocyte Esterase Urine Microscopic RBC Urine Microscopic WBC Ur Squamous Epith Cells Urine Bacteria SARS CoV-2 RNA Rapid ELANA Microbiology This Visit 09/08/23 19:11 Urine,Random Urine Culture - Preliminary Imaging Imaging: EXAM: CT OF THE ABDOMEN PELVIS WITH CONTRAST History: Severe abdominal pain. Comparison: CT abdomen pelvis 08/23/2023 Technique: Multiplanar CT images through the abdomen pelvis were obtained following administration of IV contrast FINDINGS: Lung bases are clear. No acute osseous abnormalities. Status post cholecystectomy. No liver or splenic lesions. Pancreas, adrenal glands and kidneys are unremarkable. No abdominal aortic aneurysm. Atherosclerotic vascular calcifications. No bowel obstruction. No free air and no ascites. No bladder wall thickening. Colonic diverticulosis. Previous hysterectomy. There is subtle inflammation adjacent to the sigmoid colon. No abscess. Impression: Probable mild early sigmoid diverticulitis. No free air and no abscess Review Statement Review Statement: I have independently reviewed and interpreted the labs/EKGs/imaging that were ordered by the ER provider. I have reviewed all outside records that are available currently in our EMR including imaging/notes/labs from previous visits. Plan Plan: 1. Acute Sigmoid Diverticulitis - LR@100mL/hr, NPO overnight - advancing to clear liquid, continue to advance diet as tolerated, fentanyl/toradol for pain prn, reglan and zofran for nausea prn, flagyl and levaquin for abx coverage, probiotic 2. UTI - culture showing gram negative rods, on levaquin and flagyl 3. 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 Hypertension - chronic, stable, continue home medications 5. COPD - chronic, stable, monitor DVT Prophylaxis: Up ad santo Time Spent: Greater than 80 minutes spent with patient, 50% of the time spent with this patient was devoted to counseling and coordination of care. [facility] minutes spent discussing advance care planning. Disposition: Admit to: Med/Surg Observation - admit to Inpatient today Full Code Discussed Plan of Care with Dr. Travis Campbell Medications Medication Orders: Medications Ordered Category Date Time Status Acetaminophen [Tylenol] Meds 09/08/23 20:48 Active 650 mg PO Q4H PRN Aspirin [Aspirin EC] Meds 09/09/23 08:00 Active 81 mg PO DAILYWM2 Fentanyl Citrate/Pf [Sublimaze] Meds 09/08/23 20:48 Active 50 mcg IVP Q4H PRN Ipratropium/Albuterol Neb [Duoneb] Meds 09/09/23 05:42 Active 3 ml NEB RTQ4H PRN Ketorolac Tromethamine [Toradol] Meds 09/08/23 20:48 Active 15 mg IVP Q6H PRN Lactobacillus acidophilus Meds 09/09/23 09:00 Active 50 mmu cells PO DAILY Levofloxacin/D5w [Levaquin 750 mg/150 ml D5w] Meds 09/09/23 21:00 Active 750 mg in 150 ml IV BEDTIME Metoclopramide HCl [Reglan] Meds 09/08/23 20:41 Active 5 mg IVP Q6H PRN Metronidazole/Sodium Chloride [Flagyl 500 mg/100 ml] Meds 09/09/23 00:00 Active 500 mg in 100 ml IV Q6HR Ondansetron HCl/Pf [Zofran 4 mg/2 ml] Meds 09/08/23 20:41 Active 4 mg IVP Q6H PRN Ringers Lactated Solution [Lactated Ringers] 1,000 ml Meds 09/08/23 21:00 Active IV 100 mls/hr atorvastatin [Lipitor] Meds 09/09/23 21:00 Active 40 mg PO BEDTIME fexofenadine [Tammi Allergy] Meds 09/09/23 09:00 Active 180 mg PO DAILY metoprolol succinate [Toprol XL] Meds 09/09/23 21:00 Active 25 mg PO BEDTIME pantoprazole [Protonix] Meds 09/09/23 09:00 Active 40 mg PO QDAC2 tiotropium-olodaterol [Stiolto Respimat] Meds 09/09/23 09:00 Active 2 puff IH DAILY
[2023-09-09] MEDS: LEVAQUIN 750 MG/150 ML D5W 750 MG/150 ML BAG IV SCH (20:24)
[2023-09-09 21:29] VITALS: RESP 18
[2023-09-10 05:25] LABS: BASOPHILS # (AUTO) 0.1 K/uL (0-0.2); BASOPHILS % (AUTO) 0.7 % (0.0-3.0); EOSINOPHILS # (AUTO) 0.4 K/ul (0.0-0.7); EOSINOPHILS % (AUTO) 4.4 % (0.0-7.0); HEMATOCRIT 39.2 % (37.0-47.0); HEMOGLOBIN 12.1 g/dl (12.0-16.0); IMMATURE GRANULOCYTE # (AUTO) 0.1 (0.0-1.0); IMMATURE GRANULOCYTE % (AUTO) 1.6 % (0.0-5.0); LYMPHOCYTES # (AUTO) 2.2 K/uL (0.60-3.4); LYMPHOCYTES % (AUTO) 24.5 (10.0-50.0); MEAN CORPUSCULAR HEMOGLOBIN 29.1 pg (27.0-31.0); MEAN CORPUSCULAR HGB CONC 30.9 (31.8-35.4); MEAN CORPUSCULAR VOLUME 94.2 fl (81.0-99.0); MONOCYTES # (AUTO) 0.9 K/uL (0.4-2.0); MONOCYTES % (AUTO) 9.5 (0-10); NEUTROPHILS # (AUTO) 5.3 K/ul (2.0-6.9); NEUTROPHILS % (AUTO) 59.3 % (42.2-75.2); PLATELET COUNT 426 10^3/uL (140-440); RDW COEFFICIENT OF VARIATION 14.1 % (11.6-14.8); RED BLOOD COUNT 4.16 10^6/ul (4.20-5.40); WHITE BLOOD COUNT 9.01 K/ul (4.6-10.2)
[2023-09-10 05:43] LABS: ALANINE AMINOTRANSFERASE 15.9 U/L (0-35); ALBUMIN 3.29 g/dL (3.5-5.0); ALKALINE PHOSPHATASE 86.5 U/L (53-141); ASPARTATE AMINO TRANSFERASE 18.6 U/L (14-36); BILIRUBIN,TOTAL 0.84 mg/dL (0.2-1.3); BLOOD UREA NITROGEN 10.8 mg/dL (7-17); CALCIUM 8.55 mg/dL (8.4-10.2); CARBON DIOXIDE 30.6 mmol/L (22-30.0); CHLORIDE 105.2 mmol/L (98-107); CREATININE 0.9 mg/dL (0.60-1.30); GLUCOSE 98.8 mg/dL (74-106); POTASSIUM 3.75 mmol/L (3.5-5.1); SODIUM 137.3 mmol/L (134.5-145); TOTAL PROTEIN 5.65 g/dL (6.3-8.2)
--- NOTE | 2023-09-10 09:50 | DCSUM ---
Admission Date Admission Date: 09/08/23 Discharge Date Discharge Date: 09/10/23 Admission Diagnosis Admission Diagnosis: 1. Acute Sigmoid Diverticulitis 2. UTI 3. 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 Hypertension 5. COPD Discharge Diagnosis Discharge Diagnosis: 1. Acute Sigmoid Diverticulitis - Improving 2. UTI 3. 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 Hypertension 5. COPD Hospital Provider Hospital Provider: [place], [facility] Primary Care Physician Primary Care Physician: MADELINE GONZALES Summary of History and Physical Summary of History and Physical: 68 yo female presented to the ER with complaints of abdominal pain and diarrhea. Patient was admitted on 08/23-08/23 for acute sigmoid diverticulitis and UTI. She was treated with IV zosyn and sent home on Amoxicillin. 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 Appointment was setup with her GI - Dr. Moreno and referral sent to General Surgery. Reports she saw GI yesterday and was instructed to go to the ER due to pain and likely return of diverticulitis. States they told her they would not be able to do a colonoscopy until infection resolved. States that she spoke with General Surgery and they are waiting on GI to determine their plan before they decide to do anything further. This admission patient was found to have mild sigmoid diverticulitis and UTI again. Patient reports onset 3 days ago of low back pain and generalized abdomi nal pain that she describes as an aching, gnawing, cramping pain. Has been following a bland diet and avoiding diverticulitis provoking foods. Denies any fever or urinary symptoms. Denies any blood in her stools. Has had a couple episodes of diarrhea prior to admission. States pain is improving but still present and asking to advance diet to clear liquids from npo with ice chips. Hospital Course Subjective: Patient received LR@100mL/hr, levaquin, and flagyl for treatment of diverticulitis. She was initially NPO and diet was advanced throughout stay. Pain resolved. No nausea, vomiting, or diarrhea following advancement of diet. Found to have UTI and growth on culture for klebsiella. Covered with levaquin. Leukocytosis improved with antibiotics. Contacted general surgery office due to fistula and patient not seeing them after last hospitalization. Staff reported that patient held off on last appointment because "she wanted to see GI first". Patient now has an appointment on 09/16. D/c with levaquin and flagyl. No changes to home medications. Appearance: Pleasant, No Apparent Distress and Alert HEENT: MMM, Supple and No JVD CVS: No Murmur Abdomen: Soft, Non-Tender and No Distention Respiratory: No Dyspnea Extremities: No Edema Vital Signs: Most Recent Vital Signs Temperature 97.4 F L 09/10/23 05:39 Temperature Source Oral 09/10/23 05:39 Temperature Source Infrared 09/08/23 17:25 Pulse Rate 80 09/10/23 05:39 Respiratory Rate 18 09/10/23 05:39 Blood Pressure 124/67 09/10/23 05:39 Blood Pressure Mean 86 09/10/23 05:39 Blood Pressure Left Arm 136/63 09/08/23 21:57 Blood Pressure Location Right Arm 09/10/23 05:39 Blood Pressure Position Supine 09/10/23 05:39 O2 Sat by Pulse Oximetry 97 09/10/23 05:39 Oxygen Delivery Method Nasal Cannula 09/10/23 05:39 Oxygen Flow Rate 2 09/10/23 05:39 Height 5 ft 3 in 09/09/23 11:02 Weight 143 lb 6 oz 09/09/23 11:02 Telemetry Heart Rate 88 01/25/23 07:00 Lab Results Last 24 Hours: 09/10/23 05:06 WBC 9.01 RBC 4.16 L Hgb 12.1 Hct 39.2 MCV 94.2 MCH 29.1 MCHC 30.9 L RDW Coeff of Aranza 14.1 Plt Count 426 Immature Gran % (Auto) 1.6 Neut % (Auto) 59.3 Lymph % (Auto) 24.5 [place] % (Auto) 9.5 Eos % (Auto) 4.4 Baso % (Auto) 0.7 Neut # (Auto) 5.3 Lymph # (Auto) 2.2 [place] # (Auto) 0.9 Eos # (Auto) 0.4 Baso # (Auto) 0.1 Immature Gran # (Auto) 0.1 Sodium 137.3 Potassium 3.75 Chloride 105.2 Carbon Dioxide 30.6 H Anion Gap 5.25 BUN 10.8 Creatinine 0.90 Estimated GFR (MDRD) 62.00 BUN/Creatinine Ratio 12.00 Glucose 98.8 Calcium 8.55 Total Bilirubin 0.84 AST 18.6 ALT 15.9 Alkaline Phosphatase 86.5 Total Protein 5.65 L Albumin 3.29 L Globulin 2.36 Albumin/Globulin Ratio 1.39 Discharge Instructions Discharge Planning: Discharge Planning > 40 minutes If patient is discharged with left ventricular systolic dysfunction: NA Discharged with a beta sadie? [] If no, why not? [] Discharged with an kimberlyn/arb? [] If no, why not? [] DX: SIGMOID DIVERTICULITIS, UTI RX: LEVAQUIN, FLAGYL BLAND, DIVERTICULITIS DIET ACTIVITY TOLERATED FOLLOW-UP WITH PCP NEXT WEEK FOLLOW-UP WITH GENERAL SURGERY SCHEDULED Discharge Medications: Medications at Discharge (Home Meds & RX) fexofenadine 180 mg tablet (Tammi Allergy) 180 mg PO DAILY 07/23/14 metoprolol succinate 25 mg tablet,extended release 24 hr (Toprol XL) 25 mg PO BEDTIME 07/23/14 pantoprazole 40 mg tablet,delayed release (Protonix) 40 mg PO DAILY 08/17/21 albuterol 90 mcg/actuation aerosol inhaler 90 mcg inhalation Q4-6H PRN SOB 10/29/21 atorvastatin 20 mg tablet (Lipitor) 40 mg PO BEDTIME 10/29/21 calcium carbonate 600 mg-vitamin D3 10 mcg (400 unit) tablet (Calcium 600 + D(3)) 1 tab PO DAILY 10/29/21 ipratropium 0.5 mg-albuterol 3 mg (2.5 mg base)/3 mL nebulization soln 3 ml inhalation Q4-6H PRN sob 10/29/21 tiotropium 2.5 mcg-olodaterol 2.5 mcg/actuation mist for inhalation (Stiolto Respimat) 2 puff inhalation DAILY 10/29/21 cyanocobalamin (vitamin B-12) 5,000 mcg sublingual tablet 3,000 mcg sublingual DAILY 01/23/23 C.NEBULIZER (NEBULIZER) #1 ea 01/25/23 aspirin 81 mg capsule 81 mg PO DAILY 09/08/23 prednisone 10 mg tablet 10 mg PO DAILY 09/08/23 Lactobacillus acidophilus 0.5 mg (100 million cell) tablet 50 mmu cells PO DAILY 09/09/23 Discharge Plan Discharge Discharge Orders: Discharge Patient (ONCE); Ordered 09/10/23 Ordered By: ALLYSSA PATTERSON Activity Restrictions/Additional Instructions: Discharge Home today; Sunday, September 10, 2023 [place], diverticulitis diet Activity as tolerated Follow-up with Primary Care Provider next week, Call for appointment Contact general surgeon for consult Your New Prescriptions: Medications: Levaquin 750 mg take 1 daily for 7 days Metronidazole 500 mg take 1 twice a day for 7 days Continue your Home Medications as before Instructions: Metronidazole (By mouth), Levofloxacin (By mouth), Diverticulitis (GEN), Urinary Tract Infection in Women (GEN), Diverticulitis Diet (GEN) Care Plan Goals: Problem: Infection Goal #1: No signs/symptoms of infection Instructions: Monitor for sign/symptoms of infection Monitor temperature Goal #2: White blood cell counts Within Normal Limits Instructions: Obtain labs per physician orders Problem: Alteration in Comfort/Pain Goal: Manage pain at a tolerable level Instructions: Monitor character, location and intensity Express expectations of pain relief Pain medication as ordered Position for maximal comfort Pain management prior to activities Patient Disposition: HOME SELF-CARE Prescriptions: New levofloxacin 750 mg tablet 750 mg PO DAILY Qty: 7 0RF metronidazole 500 mg tablet 500 mg PO BID Qty: 14 0RF Continued fexofenadine [Tammi Allergy] 180 MG tablet 180 mg PO DAILY metoprolol succinate [Toprol XL] 25 MG tablet extended release 24 hr 25 mg PO BEDTIME atorvastatin [Lipitor] 20 mg Tablet 40 mg PO BEDTIME Stiolto Respimat 2.5-2.5 mcg/actuation Mist 2 puff INHALATION DAILY albuterol 90 mcg/actuation Aerosol 90 mcg INHALATION Q4-6H PRN (Reason: SOB) ipratropium-albuterol 0.5 mg-3 mg(2.5 mg base)/3 mL Solution For Nebulization 3 ml INHALATION Q4-6H PRN (Reason: sob) calcium carbonate-vitamin D3 [Calcium 600 + D(3)] 600 mg-10 mcg (400 unit) Tablet 1 tab PO DAILY aspirin 81 mg capsule 81 mg PO DAILY prednisone 10 mg tablet 10 mg PO DAILY Lactobacillus acidophilus 0.5 mg (100 million cell) tablet 50 mmu cells PO DAILY pantoprazole [Protonix] 40 mg Tablet,Delayed Release (Dr/Ec) 40 mg PO DAILY cyanocobalamin (vitamin B-12) 5,000 mcg tablet, sublingual 3,000 mcg sublingual DAILY (DME) NEBULIZER Misc See Rx Instructions .ROUTE Qty: 1 0RF Rx Instructions: As directed Did you review [place] BM[place] for [place] controlled substances?: No Discussed opioids are addictive and Narcan is available by prescription or from pharmacy.: No Condition: Stable Referrals: MADELINE GONZALES MD [Primary Care Provider] - 09/16/23 10:30 am
[2023-09-10 10:21] VITALS: BP 119/69; PULSE 76; TEMP 97.3
== END 2023-09-10 13:10 | disposition home or self-care (01) | DRG 392 ==
LOC: ED 17:22 → MEDSURG B 17:22
PROVIDERS: ADMIT Hospitalist; ATTEND Nurse Practitioner Family
DX: I77.4 Celiac artery compression syndrome; N39.0 Urinary tract infection, site not specified; I10 Essential (primary) hypertension; Z87.42 Personal history of other diseases of the female genital tract; J44.9 Chronic obstructive pulmonary disease, unspecified; N32.1 Vesicointestinal fistula; K57.30 Diverticulosis of large intestine without perforation or abscess without bleeding; Z53.31 Laparoscopic surgical procedure converted to open procedure; Z90.710 Acquired absence of both cervix and uterus; G47.33 Obstructive sleep apnea (adult) (pediatric); Z90.49 Acquired absence of other specified parts of digestive tract; B96.1 Klebsiella pneumoniae [K. pneumoniae] as the cause of diseases classified elsewhere

== ENCOUNTER 2024-01-30 07:31 | Inpatient (IN) ==
[2024-01-30] MEDS: DUONEB NEB ONE (07:38)
[2024-01-30 08:08] LABS: BASOPHILS # (AUTO) 0.1 K/uL (0-0.2); EOSINOPHILS # (AUTO) 0.4 K/ul (0.0-0.7); HEMATOCRIT 43.6 % (37.0-47.0); HEMOGLOBIN 13.6 g/dl (12.0-16.0); IMMATURE GRANULOCYTE # (AUTO) 0.1 (0.0-1.0); IMMATURE GRANULOCYTE % (AUTO) 0.7 % (0.0-5.0); LYMPHOCYTES # (AUTO) 2.7 K/uL (0.60-3.4); LYMPHOCYTES % (AUTO) 26.7 (10.0-50.0); MEAN CORPUSCULAR HEMOGLOBIN 28.9 pg (27.0-31.0); MEAN CORPUSCULAR HGB CONC 31.2 (31.8-35.4); MEAN CORPUSCULAR VOLUME 92.8 fl (81.0-99.0); MONOCYTES # (AUTO) 0.8 K/uL (0.4-2.0); MONOCYTES % (AUTO) 7.5 (0-10); NEUTROPHILS % (AUTO) 60.1 % (42.2-75.2); PLATELET COUNT 531 10^3/uL (140-440); RDW COEFFICIENT OF VARIATION 14.6 % (11.6-14.8); WHITE BLOOD COUNT 9.98 K/ul (4.6-10.2)
--- NOTE | 2024-01-30 08:08 | ED.PDOC ---
General ED Provider: Dr. ODILON SAAVEDRA MD Chief Complaint: Shortness of Air Stated Complaint: 68 yo WF with SOB for 1.5 weeks with increasing cough and wheezing. Cough minimally productive. Known history of COPD and was put on oxygen in Sep 2023 at bedtime. No fever or chest pain. No sore throat. Some headache. Hx of diverticulitis recently, HTN, Lipids, COPD, mesothelioma with RUL resected. GERD and recent sigmoid resection for diverticulitis and abscess (no colovesical fistula) as reported seen on CT scan in early Sep 2023. See Sees Dr Orourke now as Gilberto Castañeda as retired. 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 she is on Respimat and duoneb at home. She had a heart cath in Jun 2006 that was neg for CAD. Time Seen by Provider: 01/30/24 07:32 Mode of Arrival: Walk-In Information Source: Patient and Family Exam Limitations: No limitations Primary Care Provider: STUART OROURKE Referred to ED by: Other (self) Nursing and Triage Documentation Reviewed and Agree: Yes Does Patient Take Opioids?: Yes Is Patient Opioid Naive?: No What is Opioid Naive?: *Opioid Naive implies the patient is not already taking opioids or not chronically receiving opioids on a daily basis. *PRN dosing is not "usually" associated with tolerance. *Patients are at higher risk of over-sedation and aspiration. What is Opioid Tolerant?: *Opioid Tolerance implies less than the expected response to an opioid. *Acquired tolerance is defined by the patient taking 60mg of oral morphine daily (or equianalgesic dose of another opioid) for 1 week or more. *Often associated with chronic pain. *May take more than usual dose to achieve desired pain control. Review of Systems Review Of Systems Constitutional: Denies Fever or Malaise Eyes: Reports No symptoms Ears, Nose, Mouth, Throat: Denies Ear pain, Nose discharge, Epistaxis or Throat pain Respiratory: Reports Cough, Orthopnea, Shortness of Breath and Wheezing Cardiac: Denies Chest pain GI: Reports No symptoms and Poor appetite : Reports No symptoms Musculoskeletal: Reports No symptoms Skin: Reports No symptoms Neurological: Reports Headache (some headache) Hematologic/Lymphatic: Reports No symptoms [facility] Medical History (Updated 01/30/24 @ 09:48 by ODILON SAAVEDRA MD) Seasonal allergies J30.2 - Other seasonal allergic rhinitis (ICD-10) Elevated cholesterol E78.00 - Pure hypercholesterolemia, unspecified (ICD-10) Family History Mother Elevated cholesterol Seasonal allergies Hypertension FATHER Alcoholism SISTER Elevated cholesterol Blood disease Hypertension BROTHER Elevated cholesterol Alcoholism Blood disease Hypertension Other Cancer Obstetric anesthesia problems Social History Smoking and tobacco status: Current every day smoker Tobacco type: cigarettes Alcohol intake: never Substance use type: does not use Housing: house Seatbelt use: always 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 Water heater temperature set < 120 degrees: Yes Working smoke detector in home: Yes Fire extinguisher in home: Yes Carbon monoxide detector in home: Yes Firearms in home: Yes Surgical History Status post tonsillectomy Z90.89 - Acquired absence of other organs (ICD-10) Status post hysterectomy Z90.710 - Acquired absence of both cervix and uterus (ICD-10) Status post cholecystectomy Z90.49 - Acquired absence of other specified parts of digestive tract (ICD- 10) Status post appendectomy Z90.49 - Acquired absence of other specified parts of digestive tract (ICD- 10) Female Reproductive History Menstrual Hx Hysterectomy: Yes Hx Tubal Ligation: No Physical Exam Physical Exam Appearance: Reports Ill-appearing Ill-appearing: Moderate Pain Distress: None Eyes: Reports GIOVANNY and EOMI ENT: Reports Ears normal and Oropharynx normal Neck: Supple Respiratory: Reports Airway patent, Breath sounds diminished, Airway obstructed, Wheezes and Retractions Cardiovascular: Reports RRR, Pulses normal and No rub GI/: Reports Soft, Nontender, No masses and Bowel sounds normal; Denies Hepatomegaly or Splenomegaly Musculoskeletal: Reports Normal strength, ROM intact and No edema Skin: Reports Warm, Dry and Normal color Neurological: Reports Sensation intact and Motor intact Psychiatric: Reports Affect appropriate and Mood appropriate Interpretation EKG Interpretation EKG Interpretation By: ED Physician Time of EKG #1: 07:52 Rate: Normal Rhythm: Sinus Ectopy: None [place]: NL ST Segment: Normal Interpretation: NSR, Abnormal R wave progression. Normal axis, Normal AR, QRS Abnormal EKG Radiology Interpretation Radiology Interpretation By: Radiologist Exam Interpreted: CXR Xray Comments: No acute process. Old suture material in the RUL/RML Course Course 01/30/24 07:40 01/30/24 07:40 Orders, Labs, Meds: Lab Review 01/30/24 01/30/24 07:40 08:12 WBC 9.98 RBC 4.70 Hgb 13.6 Hct 43.6 MCV 92.8 MCH 28.9 MCHC 31.2 L RDW Coeff of Aranza 14.6 Plt Count 531 H Immature Gran % (Auto) 0.7 Neut % (Auto) 60.1 Lymph % (Auto) 26.7 [place] % (Auto) 7.5 Eos % (Auto) 4.0 Baso % (Auto) 1.0 Neut # (Auto) 6.0 Lymph # (Auto) 2.7 [place] # (Auto) 0.8 Eos # (Auto) 0.4 Baso # (Auto) 0.1 Immature Gran # (Auto) 0.1 Sodium 142.3 Potassium 4.37 Chloride 105.3 Carbon Dioxide 32.2 H Anion Gap 9.17 BUN 14.7 Creatinine 1.03 Estimated GFR (MDRD) 53.00 BUN/Creatinine Ratio 14.27 Glucose 118.3 H Calcium 9.63 Total Bilirubin 0.48 AST 35.4 ALT 27.9 Alkaline Phosphatase 131.3 Total Protein 7.09 Albumin 4.28 Globulin 2.81 Albumin/Globulin Ratio 1.52 Adenovirus (PCR) Not detected B. pertussis DNA (PCR) Not detected B.parapertussis DNA PCR Not detected C. pneumoniae DNA (PCR) Not detected Coronavirus OC43 (PCR) Not detected Coronavirus HKU1 (PCR) Not detected Coronavirus 229E (PCR) Not detected Coronavirus NL63 (PCR) Not detected Human Metapneumovir PCR Not detected Influenza Type A (PCR) Not detected Influenza B (RT-PCR) Not detected M. pneumoniae (PCR) Not detected Parainfluenza 1 (PCR) Not detected Parainfluenza 2 (PCR) Not detected Parainfluenza 3 (PCR) Not detected Parainfluenza 4 (PCR) Not detected RSV (PCR) Not detected Entero/Rhino (PCR) Not detected SARS-CoV-2 (PCR) Not detected Orders Category Date Time Status EKG-(ED ONLY) Stat CARDIO 01/30/24 07:51 Completed NEBULIZER TREATMENT Routine CARDIO 01/30/24 08:00 Completed NEBULIZER TREATMENT Stat CARDIO 01/30/24 08:00 Completed CBC W/ AUTO DIFF Stat LAB 01/30/24 07:40 Completed CMP [COMPREHENSIVE METABOLIC PANEL] Stat LAB 01/30/24 07:40 Completed RESPIRATORY PANEL 2.1 (PCR) Stat LAB 01/30/24 08:12 Completed Albuterol Sulfate 0.083% Neb [Albuterol 0.083% Neb] Meds 01/30/24 07:59 Discontinued 2.5 mg NEB ONCE ONE Ipratropium/Albuterol Neb [Duoneb] Meds 01/30/24 07:34 Discontinued 3 ml NEB ONCE ONE Ipratropium/Albuterol Neb [Duoneb] Meds 01/30/24 08:55 Discontinued 3 ml NEB ONCE STA Methylprednisolone Sod Succ/Pf [Solu-Medrol 125 mg] Meds 01/30/24 07:51 Discontinued 125 mg IVP ONCE ONE CHEST, 2 VIEWS PA & LAT Stat RADS 01/30/24 07:51 Completed Medications Discontinued Medications Generic Name Dose Route Start Last Admin Trade Name Jarvisq PRN Reason Stop Dose Admin Albuterol Sulfate 2.5 mg 01/30/24 07:59 01/30/24 08:19 Albuterol Sulfate 0.083% Vial.Neb NEB 01/30/24 08:00 2.5 mg ONCE ONE Administration Albuterol/Ipratropium 3 ml 01/30/24 07:34 01/30/24 07:38 Ipratropium/Albuterol Vial.Neb NEB 01/30/24 07:35 3 ml ONCE ONE Administration Albuterol/Ipratropium 3 ml 01/30/24 08:55 01/30/24 08:58 Ipratropium/Albuterol Vial.Neb NEB 01/30/24 08:56 3 ml ONCE STA Administration Methylprednisolone Sodium Succinate 125 mg 01/30/24 07:51 01/30/24 08:16 Methylprednisolone Sod Succ/Pf 125 Mg/2 Ml Vial IVP 01/30/24 07:52 125 mg ONCE ONE Administration Labs noted and neg CXR. After 3rd neb Rx, feels better but oxygen sat 93-94% on 2-3L/BNC. Lungs still with some isolated wheezing and some improvement in air exchange. Discussed best if she stay overnight for mor neb Rx and IV steroid. Her agreed with OBS admission. Vital Signs: Temp Pulse Resp BP Pulse Ox 01/30/24 07:34 97.8 F 83 22 H 142/57 H 92 L Discharge Plan Discharge Patient Disposition: PLACED OBSERVATION Discharge Problem: COPD exacerbation Prescriptions: No Action fexofenadine [Tammi Allergy] 180 MG tablet 180 mg PO DAILY metoprolol succinate [Toprol XL] 25 MG tablet extended release 24 hr 25 mg PO BEDTIME atorvastatin [Lipitor] 20 mg Tablet 40 mg PO BEDTIME Stiolto Respimat 2.5-2.5 mcg/actuation Mist 2 puff INHALATION DAILY albuterol 90 mcg/actuation Aerosol 90 mcg INHALATION Q4-6H PRN (Reason: SOB) ipratropium-albuterol 0.5 mg-3 mg(2.5 mg base)/3 mL Solution For Nebulization 3 ml INHALATION Q4-6H PRN (Reason: sob) calcium carbonate-vitamin D3 [Calcium 600 + D(3)] 600 mg-10 mcg (400 unit) Tablet 1 tab PO DAILY aspirin 81 mg capsule 81 mg PO DAILY pantoprazole [Protonix] 40 mg Tablet,Delayed Release (Dr/Ec) 40 mg PO DAILY cyanocobalamin (vitamin B-12) 5,000 mcg tablet, sublingual 3,000 mcg sublingual DAILY (DME) NEBULIZER Misc See Rx Instructions .ROUTE Qty: 1 0RF Rx Instructions: As directed fexofenadine [Tammi Allergy] 180 mg tablet 180 mg PO DAILY albuterol sulfate 90 mcg/actuation HFA aerosol inhaler 2 inh inhalation Q4H PRN (Reason: shortness of air) Did you review [place] KILN PACKER for ALL controlled substances?: Not Applicable ED Provider: ODILON SAAVEDRA
[2024-01-30] MEDS: SOLU-MEDROL 125 MG IVP ONE (08:16)
--- NOTE | 2024-01-30 08:16 | DI ---
EXAM: CHEST RADIOGRAPH TECHNIQUE: Two views. Frontal and lateral. HISTORY: Shortness of breath. Chronic obstructive pulmonary disease. COMPARISON: 07/19/2023 and older studies. FINDINGS: The lungs are hyperexpanded, as before. Suture material in the right mid to upper lung, again noted. Calcified granuloma of the lower lung anteriorly in the lateral view, again noted. No pulmonary infiltrate is identified. No pleural effusion or pneumothorax is seen. Heart size is normal. No acute displaced rib fractures are identified. Stable mild serpentine scoliosis. IMPRESSION: 1. No acute findings in the chest.
[2024-01-30 08:18] LABS: BORDETELLA PARAPERTUSSIS (PCR) NOT DETECTED (NOT DETECT); BORDETELLA PERTUSSIS (PCR) NOT DETECTED (NOT DETECT); CHLAMYDIA PNEUMONIAE (PCR) NOT DETECTED (NOT DETECT); CORONAVIRUS 229E (PCR) NOT DETECTED (NOT DETECT); CORONAVIRUS HKU1 (PCR) NOT DETECTED (NOT DETECT); CORONAVIRUS NL63 (PCR) NOT DETECTED (NOT DETECT); CORONAVIRUS OC43 (PCR) NOT DETECTED (NOT DETECT); HUMAN METAPNEUMOVIRUS (PCR) NOT DETECTED (NOT DETECT); HUMAN RHINOVIRUS/ENTEROV (PCR) NOT DETECTED (NOT DETECT); INFLUENZA B (PCR) NOT DETECTED (NOT DETECT); MYCOPLASMA PNEUMONIAE (PCR) NOT DETECTED (NOT DETECT); PARAINFLUENZA VIRUS 1 (PCR) NOT DETECTED (NOT DETECT); PARAINFLUENZA VIRUS 2 (PCR) NOT DETECTED (NOT DETECT); PARAINFLUENZA VIRUS 3 (PCR) NOT DETECTED (NOT DETECT); PARAINFLUENZA VIRUS 4 (PCR) NOT DETECTED (NOT DETECT); RESPIRATORY SYNCYTIAL V (PCR) NOT DETECTED (NOT DETECT); SARS_COV_2 (PCR) NOT DETECTED (NOT DETECT)
[2024-01-30] MEDS: ALBUTEROL 0.083% NEB NEB ONE (08:19)
[2024-01-30 08:23] LABS: ALANINE AMINOTRANSFERASE 27.9 U/L (0-35); ALBUMIN 4.28 g/dL (3.5-5.0); ALKALINE PHOSPHATASE 131.3 U/L (53-141); ASPARTATE AMINO TRANSFERASE 35.4 U/L (14-36); BILIRUBIN,TOTAL 0.48 mg/dL (0.2-1.3); BLOOD UREA NITROGEN 14.7 mg/dL (7-17); CALCIUM 9.63 mg/dL (8.4-10.2); CARBON DIOXIDE 32.2 mmol/L (22-30.0); CHLORIDE 105.3 mmol/L (98-107); CREATININE 1.03 mg/dL (0.60-1.30); GLUCOSE 118.3 mg/dL (74-106); POTASSIUM 4.37 mmol/L (3.5-5.1); SODIUM 142.3 mmol/L (134.5-145); TOTAL PROTEIN 7.09 g/dL (6.3-8.2)
[2024-01-30] MEDS: DUONEB NEB STA (08:58)
[2024-01-30 09:11] LABS: ADENOVIRUS (PCR) NOT DETECTED (NOT DETECT)
[2024-01-30] MEDS ORDERED: ALBUTEROL 0.083% NEB NEB PRN (09:48)
[2024-01-30] MEDS: SOLU-MEDROL 125 MG IVP SCH (10:00)
[2024-01-30] MEDS: ROCEPHIN 1 GM VIAL IVP SCH (10:03)
[2024-01-30 10:40] VITALS: BMI 25.0
--- NOTE | 2024-01-30 11:24 | PCM ---
Date of Service Date Seen by Provider: 01/30/24 Time Seen by Provider: 11:00 Admit Day/Time Admission Date: 01/30/24 Admission Time: 09:45 Reason for Admission Chief Complaint: COPD EXACERBATION Hospital Provider Hospital Provider: [place], [facility] [place] Primary Care Physician Primary Care Physician: STUART SANTOS History of Present Illness History of Present Illness: 68 yo female presents to the ER with shortness of breath that has worsened over the last week and half. Has pmh of COPD and 1ppd smoker. Does utilize home oxygen prn and CPAP at bedtime. Reports productive cough with thick yellow sputum. Has required prn inhalers and nebs more frequently. In ER O2 sat was 91% on 2.5L. Unsure what she has been running at home. Denies fever, chills, body aches, or other symptoms. Case Discussed With Case Discussed With: Patient's case was discussed with the ER Physicians, Dr. Garrett. [facility] Medical History Seasonal allergies J30.2 - Other seasonal allergic rhinitis (ICD-10) Elevated cholesterol E78.00 - Pure hypercholesterolemia, unspecified (ICD-10) Surgical History History of colon resection Z90.49 - Acquired absence of other specified parts of digestive tract (ICD- 10) Status post tonsillectomy Z90.89 - Acquired absence of other organs (ICD-10) Status post hysterectomy Z90.710 - Acquired absence of both cervix and uterus (ICD-10) Status post cholecystectomy Z90.49 - Acquired absence of other specified parts of digestive tract (ICD- 10) Status post appendectomy Z90.49 - Acquired absence of other specified parts of digestive tract (ICD- 10) Family History Mother Elevated cholesterol Seasonal allergies Hypertension FATHER Alcoholism SISTER Elevated cholesterol Blood disease Hypertension BROTHER Elevated cholesterol Alcoholism Blood disease Hypertension Other Cancer Obstetric anesthesia problems Social History Smoking and tobacco status: Current every day smoker Tobacco type: cigarettes Alcohol intake: never Substance use type: does not use Housing: house Seatbelt use: always 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 Water heater temperature set < 120 degrees: Yes Working smoke detector in home: Yes Fire extinguisher in home: Yes Carbon monoxide detector in home: Yes Firearms in home: Yes Allergies Allergies Allergy/AdvReac Type Severity Reaction Status Date / Time clavulanic acid AdvReac Unknown Verified 01/30/24 07:41 [From Augmentin] morphine AdvReac Unknown Verified 01/30/24 07:41 pravastatin [From Pravachol] AdvReac Unknown Verified 01/30/24 07:41 risedronate sodium AdvReac Unknown Verified 01/30/24 07:41 [From Actonel] Current Medications Home Medications fexofenadine 180 mg tablet (Tammi Allergy) 180 mg PO DAILY 07/23/14 [History Confirmed 01/30/24 Last Taken 08/23/23 08:00] metoprolol succinate 25 mg tablet,extended release 24 hr (Toprol XL) 25 mg PO BEDTIME 07/23/14 [History Confirmed 01/30/24 Last Taken 08/22/23 21:00 25 mg] pantoprazole 40 mg tablet,delayed release (Protonix) 40 mg PO DAILY 08/17/21 [History Confirmed 01/30/24 Last Taken 08/23/23 08:00 40 mg] albuterol 90 mcg/actuation aerosol inhaler 90 mcg inhalation Q4-6H PRN SOB 10/29/21 [History Confirmed 01/30/24 Last Taken 08/23/23 13:56 90 mcg] atorvastatin 20 mg tablet (Lipitor) 40 mg PO BEDTIME 10/29/21 [History Confirmed 01/30/24 Last Taken 08/22/23 21:00 40 mg] calcium carbonate 600 mg-vitamin D3 10 mcg (400 unit) tablet (Calcium 600 + D(3)) 1 tab PO DAILY 10/29/21 [History Confirmed 01/30/24 Last Taken 08/23/23 08:56 1 tab] ipratropium 0.5 mg-albuterol 3 mg (2.5 mg base)/3 mL nebulization soln 3 ml inhalation Q4-6H PRN sob 10/29/21 [History Confirmed 01/30/24 Last Taken 08/22/23 06:00 3 mL] tiotropium 2.5 mcg-olodaterol 2.5 mcg/actuation mist for inhalation (Stiolto Respimat) 2 puff inhalation DAILY 10/29/21 [History Confirmed 01/30/24 Last Taken 08/23/23 08:00 2 puff] cyanocobalamin (vitamin B-12) 5,000 mcg sublingual tablet 3,000 mcg sublingual DAILY 01/23/23 [History Confirmed 01/30/24 Last Taken 08/23/23 08:00 3,000 mcg] C.NEBULIZER (NEBULIZER) #1 ea 01/25/23 [Rx Confirmed 01/30/24 Last Taken Unknown] aspirin 81 mg capsule 81 mg PO DAILY 09/08/23 [History Confirmed 01/30/24 Last Taken Unknown] albuterol sulfate 90 mcg/actuation aerosol inhaler 2 inh inhalation Q4H PRN shortness of air 01/30/24 [History Confirmed 01/30/24 Last Taken Unknown] fexofenadine 180 mg tablet (Tammi Allergy) 180 mg PO DAILY 01/30/24 [History Confirmed 01/30/24 Last Taken Unknown] Home Albuterol Sulfate (Albuterol Sulfate 0.083% Vial.Neb) 2.5 mg NEB Q2-4H PRN PRN Reason: Dyspnea Albuterol/Ipratropium (Ipratropium/Albuterol Vial.Neb) 3 ml NEB RTQ4H [place] Aspirin (Aspirin 81 Mg Tab.Chew) 81 mg PO DAILYWM2 [place] Atorvastatin Calcium (Atorvastatin Calcium 20 Mg Tablet) 40 mg PO BEDTIME [place] Enoxaparin Sodium (Enoxaparin Sodium 40 Mg/0.4 Ml Syr) 40 mg SUBCUT DAILY [facility] Azithromycin 500 mg/ Sodium (Chloride) 250 mls @ 250 mls/hr IV DAILY [facility] Stop: 02/03/24 11:59 CEFTRIAXONE/D5W 1 GM PREMIX (Rocephin 1 Gm/50 Ml D5w) 1 gm in 50 mls @ 100 mls/hr IV DAILY [place] Stop: 02/03/24 09:59 Methylprednisolone Sodium Succinate (Methylprednisolone Sod Succ/Pf 40 Mg/Ml Vial) 40 mg IVP Q8HR [facility] Metoprolol Succinate (Metoprolol Succinate 25 Mg Tab.Er.24h) 25 mg PO BEDTIME [facility] Non-Formulary Medication (Fexofenadine [Tammi Allergy]) 180 mg PO DAILY [facility] Non-Formulary Medication (Tiotropium-Olodaterol [Stiolto Respimat]) 2 puff IH DAILY [facility] Non-Formulary Medication (Calcium Carbonate-Vitamin D3 [Calcium 600 + D(3)]) 1 tab PO DAILY [facility] Pantoprazole Sodium (Pantoprazole Sodium 40 Mg Tablet.Dr) 40 mg PO DAILY [facility] Discontinued Medications Albuterol Sulfate (Albuterol Sulfate 0.083% Vial.Neb) 2.5 mg NEB ONCE ONE Stop: 01/30/24 08:00 Last Admin: 01/30/24 08:19 Dose: 2.5 mg Albuterol/Ipratropium (Ipratropium/Albuterol Vial.Neb) 3 ml NEB ONCE ONE Stop: 01/30/24 07:35 Last Admin: 01/30/24 07:38 Dose: 3 ml Albuterol/Ipratropium (Ipratropium/Albuterol Vial.Neb) 3 ml NEB ONCE STA Stop: 01/30/24 08:56 Last Admin: 01/30/24 08:58 Dose: 3 ml Ceftriaxone Sodium (Ceftriaxone 1 Gm Vial) 1 gm IVP DAILY [facility] Stop: 02/02/24 09:59 Last Admin: 01/30/24 10:03 Dose: 1 gm Methylprednisolone Sodium Succinate (Methylprednisolone Sod Succ/Pf 125 Mg/2 Ml Vial) 125 mg IVP ONCE ONE Stop: 01/30/24 07:52 Last Admin: 01/30/24 08:16 Dose: 125 mg Methylprednisolone Sodium Succinate (Methylprednisolone Sod Succ/Pf 125 Mg/2 Ml Vial) 125 mg IVP Q12HR [facility] Last Admin: 01/30/24 10:00 Dose: Not Given Opioid Naive vs. Tolerant What is Opioid Naive?: *Opioid Naive implies the patient is not already taking opioids or not chronically receiving opioids on a daily basis. *PRN dosing is not "usually" associated with tolerance. *Patients are at higher risk of over-sedation and aspiration. What is Opioid Tolerant?: *Opioid Tolerance implies less than the expected response to an opioid. *Acquired tolerance is defined by the patient taking 60mg of oral morphine daily (or equianalgesic dose of another opioid) for 1 week or more. *Often associated with chronic pain. *May take more than usual dose to achieve desired pain control. Review of Systems Constitutional: Reports No symptoms Head: Reports Normocephalic Eyes: Reports No symptoms Ears: Reports No symptoms Nose: Reports No symptoms Mouth: Reports No symptoms Throat: Reports No symptoms Cardiovascular: Reports No symptoms Respiratory: Reports Cough and Shortness of air Gastrointestinal: Reports No symptoms Genitourinary: Reports No Symptoms Musculoskeletal: Reports No symptoms Endocrine: Reports No symptoms Hematology: Reports No symptoms Immunology: Reports No symptoms Neurological: Reports No symptoms Psychiatric: Reports No symptoms Physical examination Most Recent Vital Signs: Most Recent Vital Signs Temperature 97.7 F 01/30/24 10:25 Temperature Source Temporal Artery Scan 01/30/24 10:25 Temperature Source Infrared 01/30/24 07:34 Pulse Rate 98 01/30/24 10:25 Respiratory Rate 20 01/30/24 10:25 Blood Pressure 119/63 01/30/24 10:12 Blood Pressure Left Arm 125/93 01/30/24 10:25 Blood Pressure Position Sitting 01/30/24 10:25 O2 Sat by Pulse Oximetry 94 L 01/30/24 10:59 Oxygen Delivery Method Nasal Cannula 01/30/24 11:00 Oxygen Flow Rate 2.5 01/30/24 10:59 Height 5 ft 3 in 01/30/24 10:25 Weight 141 lb 01/30/24 10:25 Telemetry Heart Rate 88 01/25/23 07:00 Appearance: Positive No Apparent Distress and Alert and Oriented x3 Skin: Positive Warm and Good Turgor HEENT: Positive Normocephalic and PERRLA Neck: Positive Supple and Midline Trachea Chest/Lungs: Positive Symmetrical With Equal Breath Sounds and Clear to Auscultation Bilaterally (moderately diminished) Heart: Positive RRR and Pulses Normal GI/: Positive Soft, Nontender, Bowel Sounds Normal and No Distention Musculoskeletal: Positive Not Examined Extremities: Positive Intact Peripheral Pulses, Stable Joints Without Laxity and Good ROM in All Joints Neurological: Positive Sensation Intact, Motor intact, Alert, Oriented and Muscle Strength 5/5 in Upper and Lower Extremities Bilaterally Labs This Visit Labs This Visit: Labs This Visit 01/30/24 01/30/24 07:40 08:12 WBC 9.98 RBC 4.70 Hgb 13.6 Hct 43.6 MCV 92.8 MCH 28.9 MCHC 31.2 L RDW Coeff of Aranza 14.6 Plt Count 531 H Immature Gran % (Auto) 0.7 Neut % (Auto) 60.1 Lymph % (Auto) 26.7 [place] % (Auto) 7.5 Eos % (Auto) 4.0 Baso % (Auto) 1.0 Neut # (Auto) 6.0 Lymph # (Auto) 2.7 [place] # (Auto) 0.8 Eos # (Auto) 0.4 Baso # (Auto) 0.1 Immature Gran # (Auto) 0.1 Sodium 142.3 Potassium 4.37 Chloride 105.3 Carbon Dioxide 32.2 H Anion Gap 9.17 BUN 14.7 Creatinine 1.03 Estimated GFR (MDRD) 53.00 BUN/Creatinine Ratio 14.27 Glucose 118.3 H Calcium 9.63 Total Bilirubin 0.48 AST 35.4 ALT 27.9 Alkaline Phosphatase 131.3 Total Protein 7.09 Albumin 4.28 Globulin 2.81 Albumin/Globulin Ratio 1.52 Adenovirus (PCR) Not detected B. pertussis DNA (PCR) Not detected B.parapertussis DNA PCR Not detected C. pneumoniae DNA (PCR) Not detected Coronavirus OC43 (PCR) Not detected Coronavirus HKU1 (PCR) Not detected Coronavirus 229E (PCR) Not detected Coronavirus NL63 (PCR) Not detected Human Metapneumovir PCR Not detected Influenza Type A (PCR) Not detected Influenza B (RT-PCR) Not detected M. pneumoniae (PCR) Not detected Parainfluenza 1 (PCR) Not detected Parainfluenza 2 (PCR) Not detected Parainfluenza 3 (PCR) Not detected Parainfluenza 4 (PCR) Not detected RSV (PCR) Not detected Entero/Rhino (PCR) Not detected SARS-CoV-2 (PCR) Not detected Imaging Imaging: EXAM: CHEST RADIOGRAPH FINDINGS: The lungs are hyperexpanded, as before. Suture material in the right mid to upper lung, again noted. Calcified granuloma of the lower lung anteriorly in the lateral view, again noted. No pulmonary infiltrate is identified. No pleural effusion or pneumothorax is seen. Heart size is normal. No acute displaced rib fractures are identified. Stable mild serpentine scoliosis. IMPRESSION: 1. No acute findings in the chest. Review Statement Review Statement: I have independently reviewed and interpreted the labs/EKGs/imaging that were ordered by the ER provider. I have reviewed all outside records that are available currently in our EMR including imaging/notes/labs from previous visits. Plan Plan: 1. Acute Hypoxic Respiratory Failure in setting of COPD exacerbation - nebs, wean oxygen as tolerated 2. COPD Exacerbation - rocephin and azith Q24H, steroids, CPAP at bedtime on home settings 3. Hypertension - chronic, continue home medications 4. Hyperlipidemia - chronic, continue home medications DVT Prophylaxis: Lovenox Time Spent: Greater than 80 minutes spent with patient, 50% of the time spent with this patient was devoted to counseling and coordination of care. [facility] Plannin minutes spent discussing advance care planning. Smoking Cessation: 5 minutes spent discussing smoking cessation. Disposition: Admit to: Med/Surg Observation DNI, CPR only Discussed Plan of Care with Dr. Travis Campbell. Medications Medication Orders: Medications Ordered Category Date Time Status Albuterol Sulfate 0.083% Neb [Albuterol 0.083% Neb] Meds 01/30/24 09:48 Active 2.5 mg NEB Q2-4H PRN Aspirin [Aspirin Chewable] Meds 01/31/24 07:30 Ordered 81 mg PO DAILYWM2 Atorvastatin Calcium [Lipitor] Meds 01/30/24 21:00 Ordered 40 mg PO BEDTIME Azithromycin Inj [Zithromax] 500 mg Meds 01/31/24 12:00 Ordered 0.9 % Sodium Chloride [Sodium Chloride] 250 ml IV DAILY Ceftriaxone/D5w 1 gm Premix [Rocephin 1 gm/50 ml D5w] Meds 01/31/24 10:00 Ordered 1 gm in 50 ml IV DAILY Enoxaparin Sodium [Lovenox] Meds 01/31/24 09:00 Active 40 mg SUBCUT DAILY Ipratropium/Albuterol Neb [Duoneb] Meds 01/30/24 13:00 Active 3 ml NEB RTQ4H Methylprednisolone Sod Succ/Pf [Solu-Medrol 40 mg] Meds 01/30/24 13:00 Active 40 mg IVP Q8HR Metoprolol Succinate [Toprol Xl] Meds 01/30/24 21:00 Ordered 25 mg PO BEDTIME Pantoprazole Sodium [Protonix] Meds 01/31/24 09:00 Ordered 40 mg PO DAILY calcium carbonate-vitamin D3 [Calcium 600 + D(3)] Meds 01/31/24 09:00 Ordered 1 tab PO DAILY fexofenadine [Tammi Allergy] Meds 01/31/24 09:00 Ordered 180 mg PO DAILY tiotropium-olodaterol [Stiolto Respimat] Meds 01/31/24 09:00 Ordered 2 puff IH DAILY
[2024-01-30] MEDS: DUONEB NEB SCH (13:17)
[2024-01-30] MEDS: SOLU-MEDROL 40 MG IVP SCH (13:20)
[2024-01-30] MEDS: TOPROL XL PO SCH (20:20)
[2024-01-30] MEDS: LIPITOR PO SCH (20:20)
[2024-01-31 05:07] LABS: BASOPHILS % (AUTO) 0.1 % (0.0-3.0); HEMATOCRIT 40.4 % (37.0-47.0); HEMOGLOBIN 12.4 g/dl (12.0-16.0); IMMATURE GRANULOCYTE # (AUTO) 0.1 (0.0-1.0); IMMATURE GRANULOCYTE % (AUTO) 0.5 % (0.0-5.0); LYMPHOCYTES # (AUTO) 1.5 K/uL (0.60-3.4); LYMPHOCYTES % (AUTO) 5.9 (10.0-50.0); MEAN CORPUSCULAR HEMOGLOBIN 28.8 pg (27.0-31.0); MEAN CORPUSCULAR HGB CONC 30.7 (31.8-35.4); MONOCYTES % (AUTO) 4.2 (0-10); NEUTROPHILS # (AUTO) 22.1 K/ul (2.0-6.9); NEUTROPHILS % (AUTO) 89.3 % (42.2-75.2); PLATELET COUNT 468 10^3/uL (140-440); RDW COEFFICIENT OF VARIATION 14.6 % (11.6-14.8); WHITE BLOOD COUNT 24.74 K/ul (4.6-10.2)
[2024-01-31 05:19] LABS: ALANINE AMINOTRANSFERASE 25.4 U/L (0-35); ASPARTATE AMINO TRANSFERASE 28.8 U/L (14-36); BILIRUBIN,TOTAL 0.33 mg/dL (0.2-1.3); BLOOD UREA NITROGEN 16.6 mg/dL (7-17); CALCIUM 9.35 mg/dL (8.4-10.2); CARBON DIOXIDE 26.4 mmol/L (22-30.0); CHLORIDE 108.4 mmol/L (98-107); CREATININE 0.85 mg/dL (0.60-1.30); GLUCOSE 165.4 mg/dL (74-106); POTASSIUM 4.33 mmol/L (3.5-5.1); SODIUM 140.4 mmol/L (134.5-145); TOTAL PROTEIN 6.49 g/dL (6.3-8.2)
[2024-01-31 05:32] LABS: ALBUMIN 3.95 g/dL (3.5-5.0)
[2024-01-31] MEDS: ANORO ELLIPTA 62.5-25 MCG INH IH SCH (08:10)
[2024-01-31] MEDS: ZITHROMAX 500 MG in SODIUM CHLORIDE 250 ML IV SCH (08:10)
[2024-01-31] MEDS: CALCIUM 500 + VIT D 5 MCG (200 IU) TABLET PO SCH (08:11)
[2024-01-31] MEDS: PROTONIX PO SCH (08:11)
[2024-01-31] MEDS: ASPIRIN CHEWABLE PO SCH (08:11)
[2024-01-31] MEDS: CLARITIN PO SCH (08:11)
[2024-01-31] MEDS: LOVENOX SUBCUT SCH (08:11)
--- NOTE | 2024-01-31 09:48 | PCM.PROG ---
Date/Time Seen Date Seen by Provider: 01/31/24 Time Seen by Provider: 08:40 Provider Provider: IRVING SANDERS PA-C, [facility] Chief Complaint Chief Complaint: COPD EXACERBATION Subjective Subjective: Patient is feeling much better today. Has been ambulating to bathroom. Wearing 2.5L. States she wears oxygen while sleeping with her cpap and takes her portable with her out and about, but usually doesn't need it through the day. Will work on weaning today. Objective Appearance: Positive No Apparent Distress and Alert and Oriented x3 Chest/Lungs: Positive Wheezes (+mild yesy, ) and Other (nonlabored, speaking full sentences, diminished breath sounds yesy ); Negative Rales or Rhonci Heart: Positive RRR GI/: Positive Soft, Nontender, Bowel Sounds Normal, No Distention and Other (+post surgical scars, healed well ) Neurological: Positive Cranial Nerves Intact, Alert, Oriented and Muscle Strength 5/5 in Upper and Lower Extremities Bilaterally Vital Signs Vital Signs: Vital Signs: Last 24 Hours 01/30/24 10:12 01/30/24 10:25 01/30/24 10:25 Temperature 97.7 F Temperature Source Temporal Artery Scan Pulse Rate 89 93 Pulse Rate [Apical] 98 Respiratory Rate 20 22 H 20 Blood Pressure 119/63 Blood Pressure Mean Blood Pressure Left Arm 125/93 Blood Pressure Location Blood Pressure Position Sitting O2 Sat by Pulse Oximetry 91 L 91 L Oxygen Delivery Method Nasal Cannula Nasal Cannula Oxygen Flow Rate 2.5 2.5 2.5 Height 5 ft 3 in Weight 141 lb Telemetry Type Telemetry Monitoring Telemetry Heart Rate EKG MO Interval EKG QRS Interval Telemetry Strip Reading 01/30/24 10:59 01/30/24 11:00 01/30/24 12:00 Temperature Temperature Source Pulse Rate Pulse Rate [Apical] Respiratory Rate Blood Pressure Blood Pressure Mean Blood Pressure Left Arm Blood Pressure Location Blood Pressure Position O2 Sat by Pulse Oximetry 94 L Oxygen Delivery Method Nasal Cannula Nasal Cannula Nasal Cannula Oxygen Flow Rate 2.5 Height Weight Telemetry Type Telemetry Monitoring Telemetry Heart Rate EKG MO Interval EKG QRS Interval Telemetry Strip Reading 01/30/24 12:12 01/30/24 12:53 01/30/24 13:23 Temperature Temperature Source Pulse Rate Pulse Rate [Apical] Respiratory Rate Blood Pressure Blood Pressure Mean Blood Pressure Left Arm Blood Pressure Location Blood Pressure Position O2 Sat by Pulse Oximetry 94 L Oxygen Delivery Method Nasal Cannula Nasal Cannula Oxygen Flow Rate 2.5 Height Weight Telemetry Type Remote Telemetry Telemetry Monitoring Started Telemetry Heart Rate 90 EKG MO Interval 0.16 EKG QRS Interval 0.06 Telemetry Strip Reading NSR 01/30/24 13:54 01/30/24 14:00 01/30/24 15:00 Temperature 98.2 F Temperature Source Temporal Artery Scan Pulse Rate 100 Pulse Rate [Apical] Respiratory Rate 20 Blood Pressure 111/66 Blood Pressure Mean 81 Blood Pressure Left Arm Blood Pressure Location Left Arm Blood Pressure Position Supine O2 Sat by Pulse Oximetry 93 L Oxygen Delivery Method Nasal Cannula Nasal Cannula Nasal Cannula Oxygen Flow Rate 2.5 Height Weight Telemetry Type Telemetry Monitoring Telemetry Heart Rate EKG MO Interval EKG QRS Interval Telemetry Strip Reading 01/30/24 15:56 01/30/24 17:00 01/30/24 18:00 Temperature 98.3 F Temperature Source Temporal Artery Scan Pulse Rate 104 H Pulse Rate [Apical] Respiratory Rate 16 Blood Pressure 136/80 Blood Pressure Mean 98 Blood Pressure Left Arm Blood Pressure Location Left Arm Blood Pressure Position Sitting O2 Sat by Pulse Oximetry 91 L Oxygen Delivery Method Nasal Cannula Nasal Cannula Nasal Cannula Oxygen Flow Rate 2.5 Height Weight Telemetry Type Telemetry Monitoring Telemetry Heart Rate EKG MO Interval EKG QRS Interval Telemetry Strip Reading 01/30/24 18:00 01/30/24 19:00 01/30/24 19:00 Temperature Temperature Source Pulse Rate Pulse Rate [Apical] Respiratory Rate Blood Pressure Blood Pressure Mean Blood Pressure Left Arm Blood Pressure Location Blood Pressure Position O2 Sat by Pulse Oximetry Oxygen Delivery Method Nasal Cannula Nasal Cannula Oxygen Flow Rate Height Weight Telemetry Type Remote Telemetry Telemetry Monitoring Continues Telemetry Heart Rate 99 EKG MO Interval 0.15 EKG QRS Interval 0.06 Telemetry Strip Reading SR 01/30/24 20:00 01/30/24 20:00 01/30/24 20:12 Temperature Temperature Source Pulse Rate Pulse Rate [Apical] Respiratory Rate Blood Pressure Blood Pressure Mean Blood Pressure Left Arm Blood Pressure Location Blood Pressure Position O2 Sat by Pulse Oximetry 92 L Oxygen Delivery Method Nasal Cannula Nasal Cannula Nasal Cannula Oxygen Flow Rate 2.5 2.5 Height Weight Telemetry Type Telemetry Monitoring Telemetry Heart Rate EKG MO Interval EKG QRS Interval Telemetry Strip Reading 01/30/24 21:00 01/30/24 22:00 01/30/24 22:00 Temperature 97.8 F Temperature Source Temporal Artery Scan Pulse Rate 106 H Pulse Rate [Apical] Respiratory Rate 20 Blood Pressure 116/66 Blood Pressure Mean 82 Blood Pressure Left Arm Blood Pressure Location Left Arm Blood Pressure Position Sitting O2 Sat by Pulse Oximetry 94 L Oxygen Delivery Method Nasal Cannula Nasal Cannula Nasal Cannula Oxygen Flow Rate 2.5 Height Weight Telemetry Type Telemetry Monitoring Telemetry Heart Rate EKG MO Interval EKG QRS Interval Telemetry Strip Reading 01/30/24 23:00 01/31/24 00:00 01/31/24 01:00 Temperature Temperature Source Pulse Rate Pulse Rate [Apical] Respiratory Rate Blood Pressure Blood Pressure Mean Blood Pressure Left Arm Blood Pressure Location Blood Pressure Position O2 Sat by Pulse Oximetry Oxygen Delivery Method C-pap C-pap Oxygen Flow Rate Height Weight Telemetry Type Remote Telemetry Telemetry Monitoring Continues Telemetry Heart Rate 90 EKG MO Interval 0.14 EKG QRS Interval 0.09 Telemetry Strip Reading SR 01/31/24 01:00 01/31/24 01:48 01/31/24 02:00 Temperature 97.7 F Temperature Source Temporal Artery Scan Pulse Rate 95 Pulse Rate [Apical] Respiratory Rate 16 Blood Pressure 115/65 Blood Pressure Mean 81 Blood Pressure Left Arm Blood Pressure Location Left Arm Blood Pressure Position Sitting O2 Sat by Pulse Oximetry 94 L Oxygen Delivery Method C-pap C-pap C-pap Oxygen Flow Rate 2.5 Height Weight Telemetry Type Telemetry Monitoring Telemetry Heart Rate EKG MO Interval EKG QRS Interval Telemetry Strip Reading 01/31/24 03:00 01/31/24 04:00 01/31/24 05:00 Temperature Temperature Source Pulse Rate Pulse Rate [Apical] Respiratory Rate Blood Pressure Blood Pressure Mean Blood Pressure Left Arm Blood Pressure Location Blood Pressure Position O2 Sat by Pulse Oximetry Oxygen Delivery Method C-pap C-pap C-pap Oxygen Flow Rate Height Weight Telemetry Type Telemetry Monitoring Telemetry Heart Rate EKG MO Interval EKG QRS Interval Telemetry Strip Reading 01/31/24 05:33 01/31/24 05:45 01/31/24 06:00 Temperature 98.1 F Temperature Source Temporal Artery Scan Pulse Rate 107 H Pulse Rate [Apical] Respiratory Rate 19 Blood Pressure Blood Pressure Mean Blood Pressure Left Arm Blood Pressure Location Left Arm Blood Pressure Position Supine O2 Sat by Pulse Oximetry 96 92 L Oxygen Delivery Method Nasal Cannula Nasal Cannula Nasal Cannula Oxygen Flow Rate 2.5 2.5 Height Weight Telemetry Type Telemetry Monitoring Telemetry Heart Rate EKG MO Interval EKG QRS Interval Telemetry Strip Reading 01/31/24 07:00 01/31/24 07:47 01/31/24 09:27 Temperature Temperature Source Pulse Rate Pulse Rate [Apical] Respiratory Rate Blood Pressure Blood Pressure Mean Blood Pressure Left Arm Blood Pressure Location Blood Pressure Position O2 Sat by Pulse Oximetry Oxygen Delivery Method Nasal Cannula Nasal Cannula Nasal Cannula Oxygen Flow Rate 1.5 Height Weight Telemetry Type Telemetry Monitoring Telemetry Heart Rate EKG MO Interval EKG QRS Interval Telemetry Strip Reading Lab Results Lab Results: Lab Results: Last 24 Hours 01/31/24 04:57 WBC 24.74 H D RBC 4.30 Hgb 12.4 Hct 40.4 MCV 94.0 MCH 28.8 MCHC 30.7 L RDW Coeff of Aranza 14.6 Plt Count 468 H Immature Gran % (Auto) 0.5 Neut % (Auto) 89.3 H Lymph % (Auto) 5.9 L [place] % (Auto) 4.2 Eos % (Auto) 0.0 Baso % (Auto) 0.1 Neut # (Auto) 22.1 H Lymph # (Auto) 1.5 [place] # (Auto) 1.0 Eos # (Auto) 0.0 Baso # (Auto) 0.0 Immature Gran # (Auto) 0.1 Sodium 140.4 Potassium 4.33 Chloride 108.4 H Carbon Dioxide 26.4 Anion Gap 9.93 BUN 16.6 Creatinine 0.85 Estimated GFR (MDRD) 67.00 BUN/Creatinine Ratio 19.52 Glucose 165.4 H Calcium 9.35 Total Bilirubin 0.33 AST 28.8 ALT 25.4 Alkaline Phosphatase 119.0 Total Protein 6.49 Albumin 3.95 Globulin 2.54 Albumin/Globulin Ratio 1.55 Additional Comments Additional Comments: I have independently reviewed and interpreted the labs/EKGs/imaging ordered during this hospital stay. I have reviewed outside records that are available in our EMR that pertain to medical stay including imaging/notes/labs from previous visits. Active Medications Active Medications: Medications Generic Name Dose Route Start Last Admin Trade Name Freq PRN Reason Stop Dose Admin Albuterol Sulfate 2.5 mg 01/30/24 09:48 Albuterol Sulfate 0.083% Vial.Neb NEB Q2-4H PRN Dyspnea Albuterol/Ipratropium 3 ml 01/30/24 13:00 01/31/24 09:22 Ipratropium/Albuterol Vial.Neb NEB 3 ml RTQ4H KIMBERLEY Administration Aspirin 81 mg 01/31/24 07:30 01/31/24 08:11 Aspirin 81 Mg Tab.Chew PO 81 mg DAILYWM2 KIMBERLEY Administration Atorvastatin Calcium 40 mg 01/30/24 21:00 01/30/24 20:20 Atorvastatin Calcium 20 Mg Tablet PO 40 mg BEDTIME KIMBERLEY Administration Calcium/Vitamin D 1 each 01/31/24 09:00 01/31/24 08:11 Calcium Carbonate/Vitamin D3 500 Mg/5 Mcg(200iu) 1 Each Tablet PO 1 each DAILY KIMBERLEY Administration Enoxaparin Sodium 40 mg 01/31/24 09:00 01/31/24 08:11 Enoxaparin Sodium 40 Mg/0.4 Ml Syr SUBCUT 40 mg DAILY KIMBERLEY Administration Azithromycin 500 mg/ Sodium 250 mls @ 250 mls/hr 01/31/24 09:00 01/31/24 08:10 Chloride IV 02/03/24 08:59 250 mls/hr DAILY KIMBERLEY Administration CEFTRIAXONE/D5W 1 GM PREMIX 1 gm in 50 mls @ 100 mls/hr 01/31/24 10:00 Rocephin 1 Gm/50 Ml D5w IV 02/03/24 09:59 DAILY KIMBERLEY Loratadine 10 mg 01/31/24 09:00 01/31/24 08:11 Loratadine 10 Mg Tablet PO 10 mg DAILY KIMBERLEY Administration Methylprednisolone Sodium Succinate 40 mg 01/30/24 13:00 01/31/24 05:29 Methylprednisolone Sod Succ/Pf 40 Mg/Ml Vial IVP 40 mg Q8HR KIMBERLEY Administration Metoprolol Succinate 25 mg 01/30/24 21:00 01/30/24 20:20 Metoprolol Succinate 25 Mg Tab.Er.24h PO 25 mg BEDTIME KIMBERLEY Administration Pantoprazole Sodium 40 mg 02/01/24 06:00 Pantoprazole Sodium 40 Mg Tablet. PO QDAC2 KIMBERLEY Umeclidinium/Vilanterol 1 inh 01/31/24 09:00 01/31/24 08:10 Umeclidinium Brm/Vilanterol 1 Each Blst.W.Dev IH 1 inh DAILY KIMBERLEY Administration Plan Plan: 1. Acute Hypoxic Respiratory Failure in setting of COPD exacerbation - nebs, abx, steroids, wean oxygen as tolerated 2. Acute COPD Exacerbation - rocephin and azith Q24H, steroids, CPAP at bedtime on home settings. Follows with Dr. Peterson, pulm outpatient, just saw earlier this month. Getting PFT in March. 3. Hypertension - chronic, continue home medications 4. Hyperlipidemia - chronic, continue home medications 5. Thrombocytosis - Acute on chronic, following with oncology outpatient. She states they feel it is reactive to her multiple recent infections/surgeries. DVT Prophylaxis: Lovenox Made inpatient today Review Statement Review Statement: I have personally discussed and reviewed the patient's visit/currently labs/imaging/decision making with Dr. Campbell, my supervising attending. Greater that 50 minutes spent with patient, 50% of the time spent with this patient was devoted to counseling and coordination of care.
[2024-01-31] MEDS: ROCEPHIN 1 GM/50 ML D5W 1 GM/50 ML BAG IV SCH (09:50)
[2024-01-31] MEDS: MIRALAX PO PRN (17:37)
[2024-02-01] MEDS: PROTONIX PO SCH (05:23)
[2024-02-01 05:25] VITALS: RESP 18
[2024-02-01 05:39] LABS: BASOPHILS % (AUTO) 0.1 % (0.0-3.0); HEMATOCRIT 37.9 % (37.0-47.0); HEMOGLOBIN 11.7 g/dl (12.0-16.0); IMMATURE GRANULOCYTE # (AUTO) 0.3 (0.0-1.0); IMMATURE GRANULOCYTE % (AUTO) 0.9 % (0.0-5.0); LYMPHOCYTES # (AUTO) 1.9 K/uL (0.60-3.4); LYMPHOCYTES % (AUTO) 6.5 (10.0-50.0); MEAN CORPUSCULAR HEMOGLOBIN 29.1 pg (27.0-31.0); MEAN CORPUSCULAR HGB CONC 30.9 (31.8-35.4); MEAN CORPUSCULAR VOLUME 94.3 fl (81.0-99.0); MONOCYTES # (AUTO) 1.3 K/uL (0.4-2.0); MONOCYTES % (AUTO) 4.6 (0-10); NEUTROPHILS # (AUTO) 25.2 K/ul (2.0-6.9); NEUTROPHILS % (AUTO) 87.9 % (42.2-75.2); PLATELET COUNT 471 10^3/uL (140-440); RDW COEFFICIENT OF VARIATION 15.1 % (11.6-14.8); RED BLOOD COUNT 4.02 10^6/ul (4.20-5.40); WHITE BLOOD COUNT 28.68 K/ul (4.6-10.2)
[2024-02-01 05:50] LABS: ALANINE AMINOTRANSFERASE 24.9 U/L (0-35); ALBUMIN 3.65 g/dL (3.5-5.0); ALKALINE PHOSPHATASE 114.5 U/L (53-141); ASPARTATE AMINO TRANSFERASE 34.9 U/L (14-36); BILIRUBIN,TOTAL 0.24 mg/dL (0.2-1.3); BLOOD UREA NITROGEN 15.3 mg/dL (7-17); CALCIUM 8.91 mg/dL (8.4-10.2); CHLORIDE 109.9 mmol/L (98-107); CREATININE 0.8 mg/dL (0.60-1.30); POTASSIUM 4.27 mmol/L (3.5-5.1); SODIUM 141.1 mmol/L (134.5-145); TOTAL PROTEIN 6.03 g/dL (6.3-8.2)
[2024-02-01 10:41] VITALS: BP 108/64; PULSE 85; TEMP 97.4
--- NOTE | 2024-02-01 11:40 | DCSUM ---
Admission Date Admission Date: 01/30/24 Discharge Date Discharge Date: 02/01/24 Admission Diagnosis Admission Diagnosis: 1. Acute Hypoxic Respiratory Failure in setting of COPD exacerbation 2. Acute COPD Exacerbation Discharge Diagnosis Discharge Diagnosis: 1. Acute Hypoxic Respiratory Failure in setting of COPD exacerbation 2. Acute COPD Exacerbation 3. Hypertension 4. Hyperlipidemia 5. Thrombocytosis Hospital Provider Hospital Provider: IRVING SANDERS PA-C, [facility] Primary Care Physician Primary Care Physician: STUART SANTOS Summary of History and Physical Summary of History and Physical: 68 yo female presents to the ER with shortness of breath that has worsened over the last week and half. Has pmh of COPD and 1ppd smoker. Does utilize home oxygen prn and CPAP at bedtime. Reports productive cough with thick yellow sputum. Has required prn inhalers and nebs more frequently. In ER O2 sat was 91% on 2.5L. Unsure what she has been running at home. Denies fever, chills, body aches, or other symptoms. Hospital Course Subjective: Patient was treated with abx, steroids, duonebs, O2. She was weaned to baseline O2 requirement which is at bedtime with her CPAP and prn through the day. She has been ambulating the hallways without difficulty. She is feeling at her baseline. No abd pain, n/v/d. WBC count elevated, likely steroid related. Procal undetectable. Platelets also mildly elevated which she has been seeing heme/onc about. Advised to f/u with pcp next week for repeat cbc to monitor wbc and plt. Will dc on azith, cefdinir, and steroids. Pt agrees to plan of care. Appearance: Pleasant, No Apparent Distress and Alert HEENT: MMM and Supple CVS: Other (RRR) Abdomen: Soft, Non-Tender and No Distention Respiratory: No Accessory Muscle Use Extremities: No Edema Vital Signs: Most Recent Vital Signs Temperature 97.4 F L 02/01/24 10:00 Temperature Source Temporal Artery Scan 02/01/24 10:00 Temperature Source Infrared 01/30/24 07:34 Pulse Rate 85 02/01/24 10:00 Respiratory Rate 18 02/01/24 10:00 Blood Pressure 108/64 02/01/24 10:00 Blood Pressure Mean 78 02/01/24 10:00 Blood Pressure Left Arm 125/93 01/30/24 10:25 Blood Pressure Location Left Arm 02/01/24 10:00 Blood Pressure Position Sitting 02/01/24 10:00 O2 Sat by Pulse Oximetry 94 L 02/01/24 10:00 Oxygen Delivery Method Room Air 02/01/24 10:00 Oxygen Flow Rate 1 01/31/24 20:00 Height 5 ft 3 in 01/30/24 10:25 Weight 141 lb 01/30/24 10:25 Telemetry Type Remote Telemetry 02/01/24 07:00 Telemetry Monitoring Continues 02/01/24 07:00 Telemetry Heart Rate 87 02/01/24 07:00 EKG [place] Interval 0.16 02/01/24 07:00 EKG QRS Interval 0.08 02/01/24 07:00 Telemetry Strip Reading SR 02/01/24 07:00 Imaging: EXAM: CHEST RADIOGRAPH TECHNIQUE: Two views. Frontal and lateral. HISTORY: Shortness of breath. Chronic obstructive pulmonary disease. COMPARISON: 07/19/2023 and older studies. FINDINGS: The lungs are hyperexpanded, as before. Suture material in the right mid to upper lung, again noted. Calcified granuloma of the lower lung anteriorly in the lateral view, again noted. No pulmonary infiltrate is identified. No pleural effusion or pneumothorax is seen. Heart size is normal. No acute displaced rib fractures are identified. Stable mild serpentine scoliosis. IMPRESSION: 1. No acute findings in the chest. Lab Results Last 24 Hours: 02/01/24 05:31 WBC 28.68 H RBC 4.02 L Hgb 11.7 L Hct 37.9 MCV 94.3 MCH 29.1 MCHC 30.9 L RDW Coeff of Aranza 15.1 H Plt Count 471 H Immature Gran % (Auto) 0.9 Neut % (Auto) 87.9 H Lymph % (Auto) 6.5 L [place] % (Auto) 4.6 Eos % (Auto) 0.0 Baso % (Auto) 0.1 Neut # (Auto) 25.2 H Lymph # (Auto) 1.9 [place] # (Auto) 1.3 Eos # (Auto) 0.0 Baso # (Auto) 0.0 Immature Gran # (Auto) 0.3 Sodium 141.1 Potassium 4.27 Chloride 109.9 H Carbon Dioxide 27.0 Anion Gap 8.47 BUN 15.3 Creatinine 0.80 Estimated GFR (MDRD) 72.00 BUN/Creatinine Ratio 19.12 Glucose 152.0 H Calcium 8.91 Total Bilirubin 0.24 AST 34.9 ALT 24.9 Alkaline Phosphatase 114.5 Total Protein 6.03 L Albumin 3.65 Globulin 2.38 Albumin/Globulin Ratio 1.53 Procalcitonin < 0.05 Discharge Instructions Discharge Planning: Discharge Planning > [address] Disha Campbell. Discharge Medications: Medications at Discharge (Home Meds & RX) Discharge Plan Discharge Discharge Orders: Discharge Patient (ONCE); Ordered 02/01/24 Ordered By: IRVING SANDERS Activity Restrictions/Additional Instructions: DISCHARGE TO HOME NO STRENUOUS ACTIVITY UNTIL RELEASED BY PCP DX: ACUTE COPD EXACERBATION FOLLOW UP WITH PCP NEXT WEEK TO REPEAT CBC PHARMACY: [facility]IOT[facility] STERO[facility] RETURN WITH WORSENING SYMPTOMS Instructions: Azithromycin (By mouth), Cefdinir (By mouth), Prednisolone (By mouth), COPD (Chronic Obstructive Pulmonary Disease) (DC) Patient Disposition: HOME SELF-CARE Prescriptions: New prednisone 20 mg tablet 20 mg PO BID 5 Days Qty: 10 0RF azithromycin 500 mg tablet 500 mg PO DAILY 3 Days Qty: 3 0RF Rx Instructions: START 02/01 cefdinir 300 mg capsule 300 mg PO BID 2 Days Qty: 4 0RF Rx Instructions: START 02/01 Continued fexofenadine [Tammi Allergy] 180 MG tablet 180 mg PO DAILY metoprolol succinate [Toprol XL] 25 MG tablet extended release 24 hr 25 mg PO BEDTIME atorvastatin [Lipitor] 20 mg Tablet 40 mg PO BEDTIME Stiolto Respimat 2.5-2.5 mcg/actuation Mist 2 puff INHALATION DAILY albuterol 90 mcg/actuation Aerosol 90 mcg INHALATION Q4-6H PRN (Reason: SOB) ipratropium-albuterol 0.5 mg-3 mg(2.5 mg base)/3 mL Solution For Nebulization 3 ml INHALATION Q4-6H PRN (Reason: sob) calcium carbonate-vitamin D3 [Calcium 600 + D(3)] 600 mg-10 mcg (400 unit) Tablet 1 tab PO DAILY aspirin 81 mg capsule 81 mg PO DAILY pantoprazole [Protonix] 40 mg Tablet,Delayed Release (Dr/Ec) 40 mg PO DAILY cyanocobalamin (vitamin B-12) 5,000 mcg tablet, sublingual 3,000 mcg sublingual DAILY fexofenadine [Tammi Allergy] 180 mg tablet 180 mg PO DAILY albuterol sulfate 90 mcg/actuation HFA aerosol inhaler 2 inh inhalation Q4H PRN (Reason: shortness of air) No Action (DME) NEBULIZER Misc See Rx Instructions .ROUTE Qty: 1 0RF Rx Instructions: As directed Did you review [place] PAPER FINISHER for ALL controlled substances?: Not Applicable Discussed opioids are addictive and Narcan is available by prescription or from pharmacy.: No Condition: Stable Referrals: STUART SANTOS [Primary Care Provider] - 02/08/24 9:30 am
== END 2024-02-01 12:35 | disposition home or self-care (01) | DRG 189 ==
LOC: ED 07:31 → MEDSURG B 07:31
PROVIDERS: ADMIT Hospitalist; ATTEND Physician Assistant
DX: J44.1 Chronic obstructive pulmonary disease with (acute) exacerbation; J96.01 Acute respiratory failure with hypoxia; I10 Essential (primary) hypertension; F17.210 Nicotine dependence, cigarettes, uncomplicated; E78.5 Hyperlipidemia, unspecified